=== PATIENT | male | born 1935 | race Caucasian/White ===

== ENCOUNTER 2017-12-23 15:41 | Observation (INO) ==
--- NOTE | 2017-12-23 15:45 | Emergency Department Note ---
Disposition Clinical Impression: Diabetes, Chronic pain, Impaired mobility and ADLs, Acute exacerbation of CHF (congestive heart failure), Cellulitis Disposition: Admitted As Inpatient Condition: Fair Referrals: Galileo James MD [Primary Care Provider] - Forms: ED Satisfaction Letter, Work/School Release Time of Disposition: 17:34 General Adult HPI - General Chief complaint: ED General Medical Stated complaint: lower back pain, possible UTI Time Seen by Provider: 12/23/17 15:41 Source: patient, family Mode of arrival: ambulatory Limitations: no limitations Nursing Notes Reviewed: Yes Vital Signs Reviewed: Yes - History of Present Illness HPI Narrative: -year-old male who presents rest of the family states is been held. The patient tells me that he has been having tearing has been aching he's week he is presently worsened over the past 3 weeks has had increasing swelling and edema in lower extremities and erythema denies any blurred vision double vision loss vision diarrhea melena hematochezia hematemesis family is concerned because he is just seems to be going downhill he states he is here for a tune up systems have been reviewed and are otherwise negative Onset (ago): week(s) (3+) Location: other (Generalized) Pain Severity: mild Pain Scale: 1 Quality: aching Consistency: constant Improves with: nothing Worsens with: nothing Associated symptoms: Reports: confusion, weakness. Denies: chest pain, diaphoresis, fever/chills, headaches, loss of appetite, malaise, nausea/vomiting, rash, seizure, shortness of breath, syncope Treatments Prior to Arrival: none - Related Data Home Medications Medication Instructions Recorded Confirmed Gabapentin [Neurontin] 800 mg PO TID 10/22/14 12/23/17 Insulin NPH Hum/Reg Insulin Hm 15 units SQ BID 10/22/14 12/23/17 [Novolin 70-30 100 Unit/ml Vial] Simvastatin [Zocor] 40 mg PO HS 10/22/14 12/23/17 Primidone [Mysoline] 250 mg PO HS 04/18/17 12/23/17 Albuterol Sulfate [Ventolin Hfa] 2 puff IH DAILY PRN 10/05/17 12/23/17 OxyCODONE/APAP 10/325 [Percocet 1 tab PO QID 10/05/17 12/23/17 10/325 MG] Testosterone Cypionate 1 ml IM Q10D 10/05/17 12/23/17 [Depo-Testosterone] Duloxetine HCl [Cymbalta] 60 mg PO DAILY 11/28/17 12/23/17 Omeprazole [PriLOSEC] 20 mg PO DAILY 11/28/17 12/23/17 Previous Rx's Medication Instructions Recorded Diltiazem CD (24hr) [Cardizem CD] 240 mg PO DAILY #30 cap.er.24h 11/30/17 Furosemide [Lasix] 40 mg PO DAILY #30 tablet 11/30/17 Metoprolol [Lopressor] 50 mg PO BID #60 tablet 11/30/17 Warfarin [Coumadin] 4 mg PO DAILY@1800 #15 tablet 11/30/17 Allergies Allergy/AdvReac Type Severity Reaction Status Date / Time No Known Allergies Allergy Verified 04/18/17 09:08 All systems ED: reviewed and negative except as stated. Review of Systems: As Per HPI Constitutional: Reports: weakness. Denies: fever, chills Eyes: Reports: vision change, other (Tearing). Denies: eye pain, eye discharge ENT ED: Denies: ear pain, throat pain, dental pain Cardiovascular: Reports: dyspnea on exertion, edema. Denies: chest pain, palpitations Respiratory: Denies: cough, dyspnea, wheezes Gastrointestinal: Denies: abdominal pain, nausea, vomiting Genitourinary: Reports: frequency. Denies: urgency, dysuria Musculoskeletal: Denies: back pain, neck pain Integumentary: Denies: rash, abrasion, lesions Neurological: Reports: headache, confusion. Denies: weakness, numbness Psychiatric: Denies: anxiety, depression Endocrine: Denies: fatigue Hematological/Lymphatic: Denies: easy bleeding, easy bruising Allergic/Immunologic: Denies: facial swelling, urticaria Past Medical History - Past Medical History Attestation: Yes The following information was validated with the patient. Source: patient, old records reviewed, obtained from family, nursing notes reviewed Medical history: Reports: arthritis, COPD, diabetes, GERD, hypertension Surgical history: Reports: hip replacement, knee replacement, orthopedic, other Psychiatric history: Reports: depression - Social History Smoking Status: Never smoker Smokeless Tobacco Status: No Alcohol use: Reports: none Drug use: Reports: none Physical Exam - General Limitations: no limitations General appearance: alert, in no apparent distress, obese, other (Occasional confusion) - Head Head exam: atraumatic, normocephalic, normal inspection - Eye Eye exam: Present: normal appearance, PERRL, EOMI, other (Patient having a little bit of tearing but his nasal membranes are markedly swollen this can be a contributing factor) - ENT ENT exam: normal exam, normal oropharynx, mucous membranes moist, TM's normal bilaterally, normal external ear exam - Neck Neck exam: Present: normal inspection, full ROM, trachea midline - Chest Chest inspection: Present: normal inspection, symmetric chest wall rise - Respiratory Respiratory exam: Present: normal lung sounds bilaterally - Cardiovascular Cardiovascular exam: Present: irregular rhythm, normal heart sounds - Abdominal Exam Abdominal exam: Present: soft, Non-Tender, normal bowel sounds. Absent: mass, pulsatile mass - Expanded Upper Extremity Exam Shoulder exam: Present: normal inspection, full ROM Arm exam: Present: normal inspection, full ROM Elbow exam: Present: normal inspection, full ROM Forearm/Wrist exam: Present: normal inspection, full ROM Hand exam: Present: normal inspection, full ROM Vascular exam: Normal: capillary refill, radial pulse - Expanded Lower Extremity Exam Hip/Pelvis exam: Present: normal inspection, full ROM Upper leg exam: Present: normal inspection, full ROM Knee exam: Present: normal inspection, full ROM Lower leg exam: Present: normal inspection, full ROM, swelling, erythema Ankle exam: Present: normal inspection, full ROM, swelling, erythema Foot/toe exam: Present: normal inspection, full ROM, swelling, erythema Neurovascular/Tendon exam: Present: normal capillary refill, normal fine/light t ouch. Absent: motor deficit, sensory deficit, tendon deficit Gait: observed and normal - Back Exam Back exam: Present: normal inspection, full ROM. Absent: muscle spasm - Neurological Exam Neurological exam: Present: alert, oriented X3, CN II-XII intact - Psychiatric Psychiatric exam: Present: normal affect, normal mood - Skin Skin exam: Present: warm, dry, intact, normal color Course Course Narrative: Patient was seen and examined laboratory data and chest x-ray CT of the head were done because the patient was having an atypical headache results having been obtained with having obtained results I reviewed them with her daughters I explained to him that I may not be to get him admitted but with thigh discussion with Dr. Matthews we were concerned about the elevated glucose and the underlying history of atrial flutter her peripheral edema and the cellulitis that would be most beneficial from antibiotics IV patient recently admitted transfer to [facility] Vital Signs Temperature 98.9 F 12/23/17 15:42 Pulse Rate 97 12/23/17 15:42 Respiratory Rate 18 12/23/17 15:42 Blood Pressure 127/88 12/23/17 15:42 O2 Sat by Pulse Oximetry 96 12/23/17 15:42 Temperature 98.9 F 12/23/17 15:42 Pulse Rate 97 12/23/17 15:42 Respiratory Rate 18 12/23/17 15:42 Blood Pressure 127/88 12/23/17 15:42 O2 Sat by Pulse Oximetry 96 12/23/17 15:42 Oxygen Delivery Oxygen Delivery Nasal Cannula Medical Decision Making - Medical Records Medical records reviewed: Yes I reviewed the patient's medical records. - Lab Data Lab results reviewed: Yes I reviewed the patient's lab results. Result diagrams: 12/23/17 16:18 12/23/17 16:18 Lab Results 12/23/17 12/23/17 12/23/17 Range/Units 16:15 16:18 16:18 WBC 10.6 (4.3-11.1) K/mcL RBC 5.24 (4.19-5.50) M/mcL Hgb 16.7 (12.9-16.9) g/dL Hct 50.0 (37.5-50.1) % MCV 95.4 (83.0-100.0) fL MCH 31.9 (28.0-33.3) pg MCHC 33.4 (31.6-35.5) g/dL RDW 13.0 (11.5-14.5) % Plt Count 220 (140-400) K/mcL MPV 11.5 (9.4-12.4) fL Immature Gran % 0.5 (0-4) % Seg Neutrophils % 72.2 % Lymphocytes % 17.7 % Monocytes % 7.5 % Eosinophils % 1.6 % Basophils % 0.5 % Neutrophils # 7.7 (1.6-8.9) K/mcL Lymphocytes # 1.9 (0.6-4.6) K/mcL Monocytes # 0.8 (0.0-1.3) K/mcL Eosinophils # 0.2 (0.0-0.6) K/mcL Basophils # 0.1 (0.0-0.2) K/mcL PT (9.4-12.1) Seconds INR APTT 46.3 H (26.0-36.0) Seconds Sodium (136-145) mEq/L Potassium (3.5-5.1) mEq/L Chloride (98-107) mEq/L Carbon Dioxide (23-29) mEq/L BUN (8-23) mg/dL Creatinine (0.70-1.30) mg/dL Est GFR ( Amer) (> 60) Est GFR (Non-Af Amer) (> 60) BUN/Creatinine Ratio (6-26) Glucose (70-105) mg/dL Calculated Osmolality (280-300) Lactic Acid (0.5-2.2) mmol/L Calcium (8.6-10.3) mg/dL Total Bilirubin (0.3-1.0) mg/dL AST (13-39) Units/L ALT (7-52) Units/L Alkaline Phosphatase (34-104) Units/L Troponin I (< 0.04) ng/mL B-Natriuretic Peptide (Less than 100) pg/mL Serum Total Protein (6.4-8.9) g/dL Albumin (3.5-5.7) g/dL Globulin (2.4-3.5) g/dL Albumin/Globulin Ratio (1.1-2.2) TSH (0.340-5.600) mcIU/mL Urine Color Yellow (Yellow) Urine Clarity Clear (Clear) Urine pH 8.5 H (5.0-8.0) pH Units Ur Specific [place] 1.020 (1.010-1.025) Urine Protein 30 H (Neg-Trace) mg/dL Urine Glucose (UA) 500 H (Normal) mg/dL Urine Ketones Negative (Negative) mg/dL Urine Blood Negative (Negative) Urine Nitrite Negative (Negative) Urine Bilirubin Negative (Negative) Urine Urobilinogen 2.0 H (Normal) mg/dL Ur Leukocyte Esterase Negative (Negative) Urine Bacteria Few (None-Few) per hpf Urine Mucus Few (Few) Ur Culture Indicated? NO (NO) 12/23/17 12/23/17 12/23/17 Range/Units 16:18 16:18 16:18 WBC (4.3-11.1) K/mcL RBC (4.19-5.50) M/mcL Hgb (12.9-16.9) g/dL Hct (37.5-50.1) % MCV (83.0-100.0) fL MCH (28.0-33.3) pg MCHC (31.6-35.5) g/dL RDW (11.5-14.5) % Plt Count (140-400) K/mcL MPV (9.4-12.4) fL Immature Gran % (0-4) % Seg Neutrophils % % Lymphocytes % % Monocytes % % Eosinophils % % Basophils % % Neutrophils # (1.6-8.9) K/mcL Lymphocytes # (0.6-4.6) K/mcL Monocytes # (0.0-1.3) K/mcL Eosinophils # (0.0-0.6) K/mcL Basophils # (0.0-0.2) K/mcL PT 24.9 H (9.4-12.1) Seconds INR 2.2 APTT (26.0-36.0) Seconds Sodium 135 L (136-145) mEq/L Potassium 3.8 (3.5-5.1) mEq/L Chloride 96 L (98-107) mEq/L Carbon Dioxide 30 H (23-29) mEq/L BUN 13 (8-23) mg/dL Creatinine 1.20 (0.70-1.30) mg/dL Est GFR ( Amer) > 60 (> 60) Est GFR (Non-Af Amer) 58 L (> 60) BUN/Creatinine Ratio 11 (6-26) Glucose 217 H (70-105) mg/dL Calculated Osmolality 287 (280-300) Lactic Acid (0.5-2.2) mmol/L Calcium 9.1 (8.6-10.3) mg/dL Total Bilirubin 1.1 H (0.3-1.0) mg/dL AST 24 (13-39) Units/L ALT 24 (7-52) Units/L Alkaline Phosphatase 163 H (34-104) Units/L Troponin I (< 0.04) ng/mL B-Natriuretic Peptide 388 H (Less than 100) pg/mL Serum Total Protein 7.9 (6.4-8.9) g/dL Albumin 4.1 (3.5-5.7) g/dL Globulin 3.8 H (2.4-3.5) g/dL Albumin/Globulin Ratio 1.1 (1.1-2.2) TSH (0.340-5.600) mcIU/mL Urine Color (Yellow) Urine Clarity (Clear) Urine pH (5.0-8.0) pH Units Ur Specific [place] (1.010-1.025) Urine Protein (Neg-Trace) mg/dL Urine Glucose (UA) (Normal) mg/dL Urine Ketones (Negative) mg/dL Urine Blood (Negative) Urine Nitrite (Negative) Urine Bilirubin (Negative) Urine Urobilinogen (Normal) mg/dL Ur Leukocyte Esterase (Negative) Urine Bacteria (None-Few) per hpf Urine Mucus (Few) Ur Culture Indicated? (NO) 12/23/17 12/23/17 Range/Units 16:18 16:18 WBC (4.3-11.1) K/mcL RBC (4.19-5.50) M/mcL Hgb (12.9-16.9) g/dL Hct (37.5-50.1) % MCV (83.0-100.0) fL MCH (28.0-33.3) pg MCHC (31.6-35.5) g/dL RDW (11.5-14.5) % Plt Count (140-400) K/mcL MPV (9.4-12.4) fL Immature Gran % (0-4) % Seg Neutrophils % % Lymphocytes % % Monocytes % % Eosinophils % % Basophils % % Neutrophils # (1.6-8.9) K/mcL Lymphocytes # (0.6-4.6) K/mcL Monocytes # (0.0-1.3) K/mcL Eosinophils # (0.0-0.6) K/mcL Basophils # (0.0-0.2) K/mcL PT (9.4-12.1) Seconds INR APTT (26.0-36.0) Seconds Sodium (136-145) mEq/L Potassium (3.5-5.1) mEq/L Chloride (98-107) mEq/L Carbon Dioxide (23-29) mEq/L BUN (8-23) mg/dL Creatinine (0.70-1.30) mg/dL Est GFR ( Amer) (> 60) Est GFR (Non-Af Amer) (> 60) BUN/Creatinine Ratio (6-26) Glucose (70-105) mg/dL Calculated Osmolality (280-300) Lactic Acid 1.7 (0.5-2.2) mmol/L Calcium (8.6-10.3) mg/dL Total Bilirubin (0.3-1.0) mg/dL AST (13-39) Units/L ALT (7-52) Units/L Alkaline Phosphatase (34-104) Units/L Troponin I < 0.03 (< 0.04) ng/mL B-Natriuretic Peptide (Less than 100) pg/mL Serum Total Protein (6.4-8.9) g/dL Albumin (3.5-5.7) g/dL Globulin (2.4-3.5) g/dL Albumin/Globulin Ratio (1.1-2.2) TSH 2.473 (0.340-5.600) mcIU/mL Urine Color (Yellow) Urine Clarity (Clear) Urine pH (5.0-8.0) pH Units Ur Specific [place] (1.010-1.025) Urine Protein (Neg-Trace) mg/dL Urine Glucose (UA) (Normal) mg/dL Urine Ketones (Negative) mg/dL Urine Blood (Negative) Urine Nitrite (Negative) Urine Bilirubin (Negative) Urine Urobilinogen (Normal) mg/dL Ur Leukocyte Esterase (Negative) Urine Bacteria (None-Few) per hpf Urine Mucus (Few) Ur Culture Indicated? (NO) - Radiology Data Radiology results reviewed: Yes I reviewed the patient's radiology results. ITS Impressions Chest X-Ray 12/23/17 15:45 IMPRESSION: Stable cardiomegaly with pulmonary vascular congestion. D/ / Kelli Finnegan MD / Kelli Finnegan MD Interpreting Provider: Kelli Finnegan MD Head CT 12/23/17 16:14 IMPRESSION: No acute intracranial abnormality. Diffuse atrophic changes with findings suggesting chronic microvascular ischemia D/ / Matt Delgado MD / Matt Delgado MD Interpreting Provider: Matt Delgado MD - EKG Data EKG #1 EKG attestation: Yes I reviewed and interpreted this EKG. EKG results narrative: A. fib rate 87 DE unable to calculate QRS 93 QT 340 and axis -[address] segment elevation Critical Care Time Critical Care Time: No
[2017-12-23] MEDS ORDERED: Bumetanide 1 MG/4 ML VIAL IVP ONE (15:46)
[2017-12-23] MEDS ORDERED: Ampicillin/Sulbactam 3,000 MG in 0.9 % Sodium Chloride Mini Bag 100 ML IVPB ONE ×2 (15:46→17:48)
[2017-12-23] MEDS ORDERED: 0.9 % Sodium Chloride 1,000 ML IVC SCH (16:00)
[2017-12-23 16:18] LABS: Bilirubin,Urine Negative (Negative); Blood,Urine Negative (Negative); Clarity,Urine Clear (Clear); Color,Urine Yellow (Yellow); Glucose,Urine (UA) 500 mg/dL (Normal); Ketones,Urine Negative (Negative); Leukocyte Esterase,Urine Negative (Negative); Nitrite,Urine Negative (Negative); PH,Urine 8.5 pH Units (5.0-8.0); Protein,Urine 30 mg/dL (Neg-Trace)
[2017-12-23 16:26] LABS: Bacteria,Urine Few per hpf (None-Few); Mucus,Urine Few (Few)
[2017-12-23 16:33] LABS: Basophils # 0.1 K/mcL (0.0-0.2); Basophils % 0.5 %; Eosinophils # 0.2 K/mcL (0.0-0.6); Eosinophils % 1.6 %; Hemoglobin 16.7 g/dL (12.9-16.9); Immature Granulocytes % 0.5 % (0-4); Lymphocytes # 1.9 K/mcL (0.6-4.6); Lymphocytes % 17.7 %; Mean Corpuscular HGB Conc 33.4 g/dL (31.6-35.5); Mean Corpuscular Hemoglobin 31.9 pg (28.0-33.3); Mean Corpuscular Volume 95.4 fL (83.0-100.0); Mean Platelet Volume 11.5 fL (9.4-12.4); Monocytes # 0.8 K/mcL (0.0-1.3); Monocytes % 7.5 %; Neutrophils # 7.7 K/mcL (1.6-8.9); Platelet Count 220 K/mcL (140-400); Red Blood Count 5.24 M/mcL (4.19-5.50); Segmented Neutrophils % 72.2 %
[2017-12-23 16:40] LABS: INR 2.2; Prothrombin Time 24.9 Seconds (9.4-12.1)
[2017-12-23 16:47] LABS: Alanine Aminotransferase 24 Units/L (7-52); Albumin 4.1 g/dL (3.5-5.7); Albumin/Globulin Ratio 1.1 (1.1-2.2); Alkaline Phosphatase 163 Units/L (34-104); Aspartate Amino Transferase 24 Units/L (13-39); BUN/Creatinine Ratio 11 (6-26); Bilirubin,Total 1.1 mg/dL (0.3-1.0); Blood Urea Nitrogen 13 mg/dL (8-23); Calcium 9.1 mg/dL (8.6-10.3); Carbon Dioxide 30 mEq/L (23-29); Chloride 96 mEq/L (98-107); Globulin 3.8 g/dL (2.4-3.5); Glucose 217 mg/dL (70-105); Osmolality,Calculated 287 (280-300); Potassium 3.8 mEq/L (3.5-5.1); Sodium 135 mEq/L (136-145); Total Protein 7.9 g/dL (6.4-8.9); eGFR For Non-African Americans 58 (> 60)
[2017-12-23 16:50] LABS: Troponin I < 0.03 ng/mL (< 0.04)
[2017-12-23 17:04] LABS: Thyroid Stimulating Hormone 2.473 mcIU/mL (0.340-5.600)
[2017-12-23] MEDS ORDERED: *HR* HYDROcodone/Acet 5/325 mg TABLET PO ONE (17:10)
[2017-12-23] MEDS ORDERED: D5% in Water 1,000 ML IVC PRN (17:48)
[2017-12-23] MEDS ORDERED: Naloxone 0.4 MG/ML INJ IVP PRN (17:48)
[2017-12-23] MEDS ORDERED: *HR* Dextrose 50 % in Water (Syg) 50 ML SYRINGE IVP PRN (17:48)
[2017-12-23] MEDS ORDERED: Dextrose Gel 15 GM/37.5 ML TUBE PO PRN ×2 (17:48)
[2017-12-23] MEDS ORDERED: TESTOSTERONE CYPIONATE IM SCH (17:48)
[2017-12-23] MEDS: 0.9 % Sodium Chloride 1,000 ML IVC SCH (19:19)
[2017-12-23] MEDS: Gabapentin 400 MG CAPSULE PO SCH (20:17)
[2017-12-23] MEDS: *HR* Warfarin 2 MG TABLET PO SCH (20:17)
[2017-12-23] MEDS: Insulin NPH/REG 70/30 100 UNIT/ML (x5UNIT) SQ SCH (20:19)
[2017-12-23] MEDS ORDERED: *HR* OxyCODONE/APAP 10/325 TABLET PO SCH (21:00)
[2017-12-23] MEDS ORDERED: *HR* FentaNYL PATCH 25 MCG PATCH TD SCH (23:45)
[2017-12-24] MEDS: 0.9 % Sodium Chloride 1,000 ML IVC SCH ×2 (02:17→16:38)
[2017-12-24] MEDS: *HR* OxyCODONE/APAP 10/325 TABLET PO SCH ×5 (04:52→21:25)
[2017-12-24 06:18] LABS: Basophils # 0.1 K/mcL (0.0-0.2); Basophils % 0.5 %; Eosinophils # 0.3 K/mcL (0.0-0.6); Eosinophils % 3.4 %; Hematocrit 46.2 % (37.5-50.1); Hemoglobin 15.2 g/dL (12.9-16.9); Immature Granulocytes % 0.4 % (0-4); Lymphocytes # 2.6 K/mcL (0.6-4.6); Lymphocytes % 26.7 %; Mean Corpuscular HGB Conc 32.9 g/dL (31.6-35.5); Mean Corpuscular Hemoglobin 31.2 pg (28.0-33.3); Mean Corpuscular Volume 94.9 fL (83.0-100.0); Mean Platelet Volume 11.3 fL (9.4-12.4); Monocytes % 10.4 %; Neutrophils # 5.6 K/mcL (1.6-8.9); Platelet Count 186 K/mcL (140-400); Red Blood Count 4.87 M/mcL (4.19-5.50); Segmented Neutrophils % 58.6 %
[2017-12-24 06:43] LABS: BUN/Creatinine Ratio 13 (6-26); Blood Urea Nitrogen 13 mg/dL (8-23); Calcium 8.3 mg/dL (8.6-10.3); Carbon Dioxide 29 mEq/L (23-29); Chloride 101 mEq/L (98-107); Glucose 173 mg/dL (70-105); Osmolality,Calculated 288 (280-300); Potassium 3.6 mEq/L (3.5-5.1); Sodium 137 mEq/L (136-145); eGFR For Non-African Americans > 60 (> 60)
[2017-12-24] MEDS: Diltiazem CD (24hr) 240 MG CAPSULE PO SCH (08:57)
[2017-12-24] MEDS: Insulin NPH/REG 70/30 100 UNIT/ML (x5UNIT) SQ SCH ×2 (08:57→21:26)
[2017-12-24] MEDS: Gabapentin 400 MG CAPSULE PO SCH ×3 (08:57→21:26)
[2017-12-24] MEDS: Insulin LISPRO 300 UNITS/3 ML VIAL SQ SCH ×3 (08:58→16:48)
[2017-12-24] MEDS ORDERED: Furosemide 40 MG TABLET PO SCH (09:00)
--- NOTE | 2017-12-24 12:36 | Internal Med History&Physical ---
Date of Encounter: 12/24/17 Time of Encounter: 11:35 Assessment and Plan (1) Acute exacerbation of CHF (congestive heart failure) Current visit: Yes Status: Acute He will be started on Bumex instead of Lasix. Metoprolol will be continued. 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 (3) Chronic pain Current visit: Yes Status: Chronic Continue Percocet. Increase Cymbalta and decrease Neurontin to see if edema lessens while maintaining pain control. Qualifiers: Chronic pain type: other chronic pain Qualified Code(s): G89.29 - Other chronic pain (4) Major depression Current visit: No Status: Acute Continue Cymbalta at increase dose as per above. Qualifiers: Major depression recurrence: unspecified whether recurrent Active/Remission status: currently active Major depression episode severity: unspecified Qualified Code(s): F32.9 - Major depressive disorder, single episode, unspecified (5) Diabetes Current visit: Yes Status: Chronic Hemoglobin A1c was 6.3% on 06/02/2016. Recheck in a.m. Continue Accu-Cheks with SSI. 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 His PCP can order a sleep study. Room air oximetry will be checked on a 6 minute walk prior to discharge. Internal Medicine - H&P: HPI Chief complaint: Weakness, lethargy, weight gain Admitted From: Emergency Dept Plans for Post Hospital Care: Home History of present illness: Mr. Storm is a 81 year old male who came to emergency room complaining of weakness for approximately 2 weeks with worsening over the past week. He describes it as generalized rather than focal weakness. He has had chronic pain in his back and legs that he thinks has worsened slightly in the past week. He has taken an occasional extra Percocet to help control the pain and states he ran out Percocet on December 22. The pain became more severe so he came to emergency room. He was felt to have cellulitis of his lower legs and possible exacerbation of heart failure. He was admitted to [facility] floor for ongoing care needs. Past Med Surg Social Fam HX - Past Medical History Medical history: arthritis, COPD, diabetes, GERD, hypertension Additional medical history: Tremors. Psychiatric history: depression - Past Surgical History Surgical History: hip replacement, knee replacement, orthopedic, other Additional surgical history: Left hip, right hip and Left knee replacement. - Social History Smoking Status: Never smoker Smokeless Tobacco Status: No Alcohol use: none Drug use: none - Family History Father Living Status: Hx Family Cardiac Disorders: No Hx Family Respiratory Disorders: Yes Mother Living Status: Hx Family Cardiac Disorders: No Internal Medicine - H&P: Meds Gabapentin [Neurontin] 800 mg PO TID 10/22/14 [History] Insulin NPH Hum/Reg Insulin Hm [Novolin 70-30 100 Unit/ml Vial] 15 units SQ BID 10/22/14 [History] Simvastatin [Zocor] 40 mg PO HS 10/22/14 [History] Primidone [Mysoline] 250 mg PO HS 04/18/17 [History] Albuterol Sulfate [Ventolin Hfa] 2 puff IH DAILY PRN 10/05/17 [History] OxyCODONE/APAP 10/325 [Percocet 10/325 MG] 1 tab PO QID 10/05/17 [History] Testosterone Cypionate [Depo-Testosterone] 1 ml IM Q10D 10/05/17 [History] Duloxetine HCl [Cymbalta] 60 mg PO DAILY 11/28/17 [History] Omeprazole [PriLOSEC] 20 mg PO DAILY 11/28/17 [History] Diltiazem CD (24hr) [Cardizem CD] 240 mg PO DAILY #30 cap.er.24h 11/30/17 [Rx] Furosemide [Lasix] 40 mg PO DAILY #30 tablet 11/30/17 [Rx] Metoprolol [Lopressor] 50 mg PO BID #60 tablet 11/30/17 [Rx] Warfarin [Coumadin] 4 mg PO DAILY@1800 #15 tablet 11/30/17 [Rx] Allergy/AdvReac Type Severity Reaction Status Date / Time No Known Allergies Allergy Verified 04/18/17 09:08 All Systems PM: A 10-system review of systems was performed and is negative for pertinent findings except as documented above in the HPI. Review of systems: Gen.: His weight has increased from 108.862 kg on 10/05/2017 to 121.109 kg on admission. Cardiovascular: He has history of hypertension. He had echocardiogram done 12/11/2017 during [facility] stay which showed LVEF of 45-50% with small pericardial effusion but no evidence of cardiac tamponade. There was trace tricuspid regurgitation. Interventricular septum and posterior wall thickness me asurements were 1.42 and 1.02 cm respectively. There was LAE at 4.30 cm. He had atrial fibrillation and was started on Cardizem, metoprolol, and Coumadin. He has not had documented EST or heart catheter. He has not had DVT or pulmonary embolus. Respiratory: He is a lifelong nonsmoker and has no known chronic lung disease and does not use home oxygen. He had pulmonary function testing on 07/13/2017 which showed FVC 61% predicted, FEV1 65% predicted, FEV1/FVC 76%, MVV 41% predicted, RV 92% predicted, and DLCO (corrected) 75% predicted. 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 GI: He has occasional GERD symptoms. He had pancreatitis approximately 10 years ago from presumed alcohol use. He has had no recurrence. He denies disorders of his liver. : He has BPH. He had JUNAID in the past which has resolved. He denies other kidney bladder or prostate disorders. Neurologic: He has diabetic peripheral neuropathy. He has benign essential tremor and is being considered for deep brain stimulation surgery in [place]. He denies large distribution strokes or seizures. Endocrine: He was diagnosed with DM 2 approximately 2007. He has hyperlipidemia and hypogonadism. He denies known thyroid disease. Hematology/oncology: He denies blood disorders cancers or anemia Psychiatric: He has anxiety and depression but denies other mental health issues. 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 - Constitutional Vitals: Temp Pulse Resp BP Pulse Ox 97.7 F 100 20 126/77 96 12/24/17 10:20 12/24/17 10:20 12/24/17 10:20 12/24/17 10:20 12/24/17 10:20 Exam: Gen.: He is a well-developed overweight male lying in bed who appears in no acute distress at present time HEENT: Head is atraumatic and normocephalic. Eyes: EOMI. There is no scleral icterus. Mouth: Mucosa is moist. Neck: Supple and nontender. There is no thyromegaly or adenopathy noted. Heart: Irregularly irregular without murmurs or gallops Lungs: He has diminished breath sounds diffusely. No wheezes or crackles are heard. Abdomen: Soft and nontender. No masses or guarding are noted. Extremities: He has trace pitting edema bilaterally of the lower anterior shins and dorsum of the feet. He has woody edema present. There is diffuse erythema on his lower legs and torso arms and face but no evidence of localized cellulitis. He has minimal DJD changes of his hands. Neurologic: Mental status: He is talkative and a good historian. Cranial nerves: Smile is symmetric. Forehead wrinkles bilaterally. Tongue protrudes midline. EOMI. Motor: There is no pronator drift. Cerebellar: Finger to nose is intact bilaterally. Skin: Warm and dry Internal Med - H&P Results - Labs CBC & Chem 7: 12/24/17 06:12 12/24/17 06:12 Labs: Short CBC 12/23/17 12/24/17 Range/Units 16:18 06:12 WBC 10.6 9.6 (4.3-11.1) K/mcL Hgb 16.7 15.2 D (12.9-16.9) g/dL Hct 50.0 46.2 (37.5-50.1) % Plt Count 220 186 (140-400) K/mcL Neutrophils # 7.7 5.6 (1.6-8.9) K/mcL BMP 12/23/17 12/24/17 16:18 06:12 Sodium 135 L 137 Potassium 3.8 3.6 Chloride 96 L 101 Carbon Dioxide 30 H 29 BUN 13 13 Creatinine 1.20 1.01 Glucose 217 H 173 H Calcium 9.1 8.3 L Cardiac Enzymes 12/23/17 Range/Units 16:18 Troponin I < 0.03 (< 0.04) ng/mL Liver Function 12/23/17 Range/Units 16:18 Total Bilirubin 1.1 H (0.3-1.0) mg/dL AST 24 (13-39) Units/L ALT 24 (7-52) Units/L Alkaline Phosphatase 163 H (34-104) Units/L Albumin 4.1 (3.5-5.7) g/dL Urine 12/23/17 Range/Units 16:15 Urine Color Yellow (Yellow) Urine Clarity Clear (Clear) Urine pH 8.5 H (5.0-8.0) pH Units Ur Specific [place] 1.020 (1.010-1.025) Urine Protein 30 H (Neg-Trace) mg/dL Urine Glucose (UA) 500 H (Normal) mg/dL - Impressions ITS Impressions Chest X-Ray 12/23/17 15:45 IMPRESSION: Stable cardiomegaly with pulmonary vascular congestion. D/ / Kelli Finnegan MD / Kelli Finnegan MD Interpreting Provider: Kelli Finnegan MD Head CT 12/23/17 16:14 IMPRESSION: No acute intracranial abnormality. Diffuse atrophic changes with findings suggesting chronic microvascular ischemia D/ / Matt Delgado MD / Matt Delgado MD Interpreting Provider: Matt Delgado MD
[2017-12-24] MEDS: Bumetanide 1 MG TABLET PO SCH (13:22)
[2017-12-24] MEDS: *HR* Warfarin 2 MG TABLET PO SCH (17:15)
[2017-12-25] MEDS: *HR* OxyCODONE/APAP 10/325 TABLET PO SCH ×3 (03:10→09:43)
[2017-12-25 07:04] VITALS: BP 133/88
[2017-12-25 07:49] LABS: Basophils # 0.1 K/mcL (0.0-0.2); Basophils % 0.7 %; Eosinophils # 0.6 K/mcL (0.0-0.6); Hematocrit 48.5 % (37.5-50.1); Hemoglobin 15.7 g/dL (12.9-16.9); Immature Granulocytes % 0.4 % (0-4); Lymphocytes # 2.7 K/mcL (0.6-4.6); Lymphocytes % 27.3 %; Mean Corpuscular HGB Conc 32.4 g/dL (31.6-35.5); Mean Corpuscular Hemoglobin 31.8 pg (28.0-33.3); Mean Corpuscular Volume 98.4 fL (83.0-100.0); Mean Platelet Volume 10.9 fL (9.4-12.4); Monocytes # 1.1 K/mcL (0.0-1.3); Monocytes % 10.9 %; Neutrophils # 5.4 K/mcL (1.6-8.9); Platelet Count 213 K/mcL (140-400); Red Blood Count 4.93 M/mcL (4.19-5.50); Red Cell Distribution Width 13.2 % (11.5-14.5); Segmented Neutrophils % 54.7 %
[2017-12-25 08:54] LABS: Estimated Average Glucose 212 mg/dl
[2017-12-25] MEDS: Diltiazem CD (24hr) 240 MG CAPSULE PO SCH (09:44)
[2017-12-25] MEDS: Gabapentin 400 MG CAPSULE PO SCH (09:44)
[2017-12-25] MEDS: Insulin LISPRO 300 UNITS/3 ML VIAL SQ SCH (09:44)
[2017-12-25] MEDS: Bumetanide 1 MG TABLET PO SCH (09:44)
[2017-12-25] MEDS: Insulin NPH/REG 70/30 100 UNIT/ML (x5UNIT) SQ SCH (09:47)
--- NOTE | 2017-12-25 10:16 | Discharge Summary ---
Orders not resulted at time of discharge: Pending orders 12/23/17 16:25 Culture,Blood [BC] Stat 12/25/17 06:57 Basic Metabolic Panel AM 0400 Magnesium AM 0400 Date of Encounter: 12/25/17 Time of Encounter: 10:10 - Discharge Diagnosis (1) Acute exacerbation of CHF (congestive heart failure) Priority: Primary Status: Acute Qualifiers: Heart failure type: combined systolic and diastolic Qualified Code(s): I50.43 - Acute on chronic combined systolic (congestive) and diastolic (congestive) heart failure (2) Atrial fibrillation with RVR Priority: Secondary Status: Acute (3) Chronic pain Priority: Secondary Status: Chronic Qualifiers: Chronic pain type: other chronic pain Qualified Code(s): G89.29 - Other chronic pain (4) Major depression Priority: Secondary Status: Chronic Qualifiers: Major depression recurrence: unspecified whether recurrent Active/Remission status: currently active Major depression episode severity: unspecified Qualified Code(s): F32.9 - Major depressive disorder, single episode, unspecified (5) Diabetes Priority: Secondary Status: Chronic Qualifiers: Diabetes mellitus type: type 2 Diabetes mellitus mcc insulin use: with intermediate manager use Diabetes mellitus complication status: with unspecified complications Qualified Code(s): E11.8 - Type 2 diabetes mellitus with unspecified complications; Z79.4 - care home (current) use of insulin (6) TAN (obstructive sleep apnea) Priority: Secondary Status: Suspected Hospital course: Mr. Storm is a 81 year old male who came to emergency room complaining of weakness for approximately 2 weeks with worsening over the past week. He describes it as generalized rather than focal weakness. He has had chronic pain in his back and legs that he thinks has worsened slightly in the past week. He has taken an occasional extra Percocet to help control the pain and states he ran out Percocet on December 22. The pain became more severe so he came to emergency room. He was felt to have cellulitis of his lower legs and possible exacerbation of heart failure. He was admitted to [facility] floor for ongoing care needs. Initial orders were written by the emergency room physician. I saw him on December 24 and performed a history and physical. He was given IV Bumex and had significant diuresis. BN peptide improved to 298 by December 25. He with continue oral Bumex and metoprolol at discharge for heart failure. Neurontin was decreased to lessen possibility of medication induced edema. Cymbalta was increased. Hemoglobin A1c returned elevated at 9.0%. He will be started on metformin and continue his home dose of insulin. His PCP can monitor. I recommended he have a sleep study to further evaluate for TAN and need of CPAP/BiPAP. His PCP can coordinate this. He had physical therapy and occupational therapy evaluations. On December 25 he felt improved and stable for discharge home. He will follow with his PCP Dr. Galileo James within 1 week. - Time Spent with Patient Total time spent providing and/or coordinating discharge services: - Discharge Medications Prescriptions: Bumetanide [Bumex] 1 mg PO DAILY #30 tablet DULoxetine [Cymbalta] 30 mg PO DAILY #30 capsule. metFORMIN [Glucophage] 500 mg PO 0800 #30 tablet Home Medications: Insulin NPH Hum/Reg Insulin Hm [Novolin 70-30 100 Unit/ml Vial] 15 units SQ BID 10/22/14 [History] Simvastatin [Zocor] 40 mg PO HS 10/22/14 [History] Primidone [Mysoline] 250 mg PO HS 04/18/17 [History] Albuterol Sulfate [Ventolin Hfa] 2 puff IH DAILY PRN 10/05/17 [History] OxyCODONE/APAP 10/325 [Percocet 10/325 MG] 1 tab PO QID 10/05/17 [History] Testosterone Cypionate [Depo-Testosterone] 1 ml IM Q10D 10/05/17 [History] Duloxetine HCl [Cymbalta] 60 mg PO DAILY 11/28/17 [History] Omeprazole [PriLOSEC] 20 mg PO DAILY 11/28/17 [History] Diltiazem CD (24hr) [Cardizem CD] 240 mg PO DAILY #30 cap.er.24h 11/30/17 [Rx] Metoprolol [Lopressor] 50 mg PO BID #60 tablet 11/30/17 [Rx] Warfarin [Coumadin] 4 mg PO DAILY@1800 #15 tablet 11/30/17 [Rx] Bumetanide [Bumex] 1 mg PO DAILY #30 tablet 12/25/17 [Rx] DULoxetine [Cymbalta] 30 mg PO DAILY #30 capsule. 12/25/17 [Rx] Gabapentin [Neurontin] 400 mg PO TID #0 12/25/17 [Rx] metFORMIN [Glucophage] 500 mg PO 0800 #30 tablet 12/25/17 [Rx] Allergies/Adverse Reactions: Allergy/AdvReac Type Severity Reaction Status Date / Time No Known Allergies Allergy Verified 04/18/17 09:08 Date of admission: 12/23/17 17:46 Primary care physician: Galileo James MD Consults: 12/24/17 12:44 Consult to Occupational Therapy [CONS] Routine Comment: Evaluate, develop and implement POC Reason for Consult: Weakness Does patient have active BEDREST order?: No Is patient medically & hemodynamically stable?: Yes Patient assessed for mobility or mobilized this visit?: Yes Consult to Physical Therapy [CONS] Routine Comment: Evaluate, develop and implement POC Reason for Consult: Weakness Does patient have active BEDREST order?: No Is patient medically & hemodynamically stable?: Yes Patient assessed for mobility or mobilized this visit?: Yes - Constitutional Vitals: Temp Pulse Resp BP Pulse Ox 97.7 F 104 18 133/88 98 12/25/17 07:00 12/25/17 07:00 12/25/17 07:00 12/25/17 07:00 12/25/17 07:00 - Patient Status Disposition: Home, Self-Care Condition: Fair - Discharge Instructions Follow Up With: Galileo James MD [Primary Care Provider] - 1 week - Diet and Activity Activity: resume usual activities as tolerated Diet: diabetic diet
[2017-12-25 10:54] LABS: Calcium 8.9 mg/dL (8.6-10.3); Magnesium 2.1 mg/dL (1.6-2.6); Potassium 4.2 mEq/L (3.5-5.1)
--- NOTE | 2017-12-25 11:26 | Physician Discharge Referral ---
Home Health/Hosp Referral Info Transfer to: Home Health Attending Provider: Byron Provider in Charge Post Discharge: PCP (Galileo James M.D.) - Diagnosis (1) Acute exacerbation of CHF (congestive heart failure) Priority: Primary Status: Acute (2) Atrial fibrillation with RVR Priority: Secondary Status: Acute (3) Chronic pain Priority: Secondary Status: Chronic (4) Major depression Priority: Secondary Status: Chronic (5) Diabetes Priority: Secondary Status: Chronic (6) TAN (obstructive sleep apnea) Priority: Secondary Status: Suspected - Respiratory Orders Oxygen / L per min (Liters per minute by nasal cannula as needed to keep sat greater than 90 are sent) Smoking Cessation: Smoking cessation has been advised. For more information, call the [place] Tobacco Quit Line at 2-033-WLKT-NOW. - Diet/Nutrition Diet/Nutrition Orders: No Concentrated Sweets - Activity Activity Orders: Walker - Services Needed Following services are medically necessary services: Nursing, Home Health Aide, Physical Therapy, Occupational Therapy - Transfer Medications Prescriptions: Bumetanide [Bumex] 1 mg PO DAILY #30 tablet DULoxetine [Cymbalta] 30 mg PO DAILY #30 capsule. metFORMIN [Glucophage] 500 mg PO 0800 #30 tablet Home Medications: Insulin NPH Hum/Reg Insulin Hm [Novolin 70-30 100 Unit/ml Vial] 15 units SQ BID 10/22/14 [History] Simvastatin [Zocor] 40 mg PO HS 10/22/14 [History] Primidone [Mysoline] 250 mg PO HS 04/18/17 [History] Albuterol Sulfate [Ventolin Hfa] 2 puff IH DAILY PRN 10/05/17 [History] OxyCODONE/APAP 10/325 [Percocet 10/325 MG] 1 tab PO QID 10/05/17 [History] Testosterone Cypionate [Depo-Testosterone] 1 ml IM Q10D 10/05/17 [History] Duloxetine HCl [Cymbalta] 60 mg PO DAILY 11/28/17 [History] Omeprazole [PriLOSEC] 20 mg PO DAILY 11/28/17 [History] Diltiazem CD (24hr) [Cardizem CD] 240 mg PO DAILY #30 cap.er.24h 11/30/17 [Rx] Metoprolol [Lopressor] 50 mg PO BID #60 tablet 11/30/17 [Rx] Warfarin [Coumadin] 4 mg PO DAILY@1800 #15 tablet 11/30/17 [Rx] Bumetanide [Bumex] 1 mg PO DAILY #30 tablet 12/25/17 [Rx] DULoxetine [Cymbalta] 30 mg PO DAILY #30 capsule.dr 12/25/17 [Rx] Gabapentin [Neurontin] 400 mg PO TID #0 12/25/17 [Rx] metFORMIN [Glucophage] 500 mg PO 0800 #30 tablet 12/25/17 [Rx] Allergies/Adverse Reactions: Allergy/AdvReac Type Severity Reaction Status Date / Time No Known Allergies Allergy Verified 04/18/17 09:08 Certification: Further, I certify that my clinical findings support that this patient is homebound (i.e. absences from home require considerable and taxing effort and are for medical reasons or voodoo services or infrequently or short duration when for other reasons) because: Homebound Reason: Leaving home requires considerable and taxing effort due to condition (Impaired ambulation ability secondary to heart failure and obesity) Attestation: My signature below is to certify that this patient is under my care and that I, or nurse practitioner, or a physician's marketing administrative assistant working with me, has a [id number] encounter with this patient.
== END 2017-12-25 12:42 | disposition home or self-care (01) ==
LOC: INPPIK 15:41 → EMEROOPIK 15:41 → INPPIK 18:19
PROVIDERS: ADMIT Internal Medicine; ATTEND Internal Medicine

== ENCOUNTER 2018-07-25 12:10 | Inpatient (IN) ==
--- NOTE | 2018-07-25 12:24 | Emergency Department Note ---
Disposition Clinical Impression: Intractable pain, Recurrent falls Closed right acetabular fracture Qualifiers: Encounter type: initial encounter Sublocation of acetabulum: anterior wall Fracture alignment: nondisplaced Qualified Code(s): S32.414A - Nondisplaced fracture of anterior wall of right acetabulum, initial encounter for closed fracture Disposition: Admitted As Inpatient Condition: Fair Referrals: NONE,PCP [Non-Partnered Physician] - Forms: ED Satisfaction Letter Time of Disposition: 14:05 Fall HPI - General Chief Complaint: ED Fall Stated Complaint: fall, pain to rt arm Time Seen by Provider: 07/25/18 12:24 Source: patient, family, EMS Mode of arrival: EMS Limitations: no limitations Nursing Notes Reviewed: Yes Vital Signs Reviewed: Yes - History of Present Illness HPI Narrative: Patient presents with a chief complaint of "cannot walk". He has had multiple episodes of falls with 5 falls in the week preceding this most recent Sunday. He was seen in this emergency department and did have imaging across his right arm, his head and his right hip. He presents with severe pain in the right groin right hand and right shoulder. He is able to get up with a walker to get to the Coumadin clinic 2 days ago but has not been able to get up to get around since. His states that he cannot even stand at this point for her to change his attends. His pain is not being controlled with home medications. Corey was called for his transport. He has not had any fall or repeat injury since Sunday. He does not have any recent change of medicines. He denies fevers or chills. Denies nausea or vomiting. Denies chest pain shortness of breath or cough. Denies any midline neck or back pain. Denies any diarrhea or bowel troubles. His family believes his tremor is a little bit worse. They called the family doctor and were advised to come here for reevaluation. Pt Subjective Complaint: fall Onset (ago): day(s) (5) Fall From: standing, other (In the garage) Fall Witnessed: no Place Fall Occurred: home Loss of Consciousness: none Prolonged Down Time?: unclear Symptoms Prior to Fall: none Location of injury - extremities: Right: shoulder, arm, forearm, hand, hip Severity: moderate, severe Quality: sharp, dull, aching Associated symptoms (after fall): Reports: unable to walk, confusion. Denies: headache, neck pain, numbness, weakness, chest pain, shortness of breath, abdomi nal pain, hematuria, lightheaded, vertigo - Related Data Home Medications Medication Instructions Recorded Confirmed Insulin NPH Hum/Reg Insulin Hm 38 units SQ DAILY 10/22/14 07/25/18 [Novolin 70-30 100 Unit/ml Vial] Simvastatin [Zocor] 40 mg PO HS 10/22/14 07/25/18 Primidone [Mysoline] 250 mg PO HS 04/18/17 07/25/18 Albuterol Sulfate [Ventolin Hfa] 2 puff IH DAILY PRN 10/05/17 07/25/18 OxyCODONE/APAP 10325 [Percocet 1 tab PO QID 10/05/17 07/25/18 10/325 MG] Testosterone Cypionate 1 ml IM Q10D 10/05/17 07/25/18 [Depo-Testosterone] Duloxetine HCl [Cymbalta] 60 mg PO DAILY 11/28/17 07/25/18 Omeprazole [PriLOSEC] 20 mg PO DAILY 11/28/17 07/25/18 Previous Rx's Medication Instructions Recorded Diltiazem CD (24hr) [Cardizem CD] 240 mg PO DAILY #30 cap.er.24h 11/30/17 Metoprolol [Lopressor] 50 mg PO BID #60 tablet 11/30/17 Warfarin [Coumadin] 4 mg PO DAILY@1800 #15 tablet 11/30/17 Bumetanide [Bumex] 1 mg PO DAILY #30 tablet 12/25/17 DULoxetine [Cymbalta] 30 mg PO DAILY #30 capsule.dr 12/25/17 Gabapentin [Neurontin] 400 mg PO TID #0 12/25/17 Tramadol HCl [Ultram] 50 mg PO BID PRN 5 Days #10 tab 07/21/18 Allergies Allergy/AdvReac Type Severity Reaction Status Date / Time No Known Allergies Allergy Verified 07/25/18 12:12 All systems ED: reviewed and negative except as stated. Fall PMH - Past Medical History Medical history: Reports: arthritis, atrial fibrillation, CHF, DVT, diabetes, hyperlipidemia, hypertension, other (Obesity) Surgical history: Reports: hip replacement (Bilateral), knee replacement, orthopedic, other Psychiatric history: Reports: depression - Social History Smoking Status: Never smoker Alcohol use: Reports: none Drug use: Reports: none Physical Exam - General Limitations: no limitations General appearance: alert - Head Head exam: atraumatic, normocephalic, normal inspection - Eye Eye exam: Present: normal appearance, PERRL, EOMI - ENT ENT exam: normal exam, normal oropharynx, mucous membranes moist - Neck Neck exam: Present: normal inspection, full ROM, trachea midline. Absent: tenderness, lymphadenopathy - Chest Chest inspection: Present: normal inspection, symmetric chest wall rise - Respiratory Respiratory exam: Present: normal lung sounds bilaterally. Absent: respiratory distress, wheezes, prolonged expiratory phase - Cardiovascular Cardiovascular exam: Present: tachycardia, irregular rhythm - Abdominal Exam Abdominal exam: Present: soft, Non-Tender, normal bowel sounds, other (Pain on pressure over the right hemipelvis and hip.). Absent: tenderness, distention, guarding, rebound, rigidity - Extremities Exam Extremities exam: Present: other (Severity bruising and swelling of the right arm from the proximal humerus to the hand.) - Expanded Lower Extremity Exam Neurovascular/Tendon exam: Present: normal capillary refill Gait: not tested/not observed - Neurological Exam Neurological exam: Present: alert, oriented X3 - Psychiatric Psychiatric exam: Present: normal affect, normal mood - Skin Skin exam: Present: warm, dry, intact, normal color. Absent: diaphoresis, pallor Course Course Narrative: With return of testing, the patient does not have apparent reason metabolically or structurally for recurrent falls and his severe pain. He is currently unable to get up around her function at home. A call has been placed to Dr. Matthews to discuss inpatient care with likely a social service evaluation. Dr. Matthews is agreeable with continuing pain management and obtaining physical therapy assessment. He will likely a personal placement for rehabilitation. Verbal orders have been obtained for observation. Vital Signs Temperature 97.9 F 07/25/18 12:12 Pulse Rate 108 07/25/18 12:12 Respiratory Rate 18 07/25/18 12:12 Blood Pressure 117/80 07/25/18 12:12 O2 Sat by Pulse Oximetry 93 07/25/18 12:12 Temperature 97.9 F 07/25/18 12:12 Pulse Rate 105 07/25/18 13:59 Respiratory Rate 16 07/25/18 13:59 Blood Pressure 115/75 07/25/18 13:59 O2 Sat by Pulse Oximetry 99 07/25/18 13:59 Oxygen Delivery Oxygen Delivery Nasal Cannula Fall - Medical Records Medical records reviewed: Yes I reviewed the patient's medical records. XR/XR forearm RT IMPRESSION: Large hematoma involving the right elbow and proximal forearm. No evidence of an acute fracture or dislocation. Old healed right radius fracture. There are degenerative changes in the right elbow and wrist. D/ / Esdras Ruiz MD / Esdras Ruiz MD - Lab Data Lab results reviewed: Yes I reviewed the patient's lab results. Result diagrams: 07/25/18 12:48 07/25/18 12:48 Lab Results 07/25/18 07/25/18 07/25/18 Range/Units 12:48 12:48 12:48 WBC 7.8 (4.3-11.1) K/mcL RBC 3.68 L (4.19-5.50) M/mcL Hgb 12.3 L (12.9-16.9) g/dL Hct 36.9 L (37.5-50.1) % MCV 100.3 H (83.0-100.0) fL MCH 33.4 H (28.0-33.3) pg MCHC 33.3 (31.6-35.5) g/dL RDW 14.7 H (11.5-14.5) % Plt Count 195 (140-400) K/mcL MPV 10.5 (9.4-12.4) fL Immature Gran % 0.6 (0-4) % Seg Neutrophils % 61.6 % Lymphocytes % 18.4 % Monocytes % 10.1 % Eosinophils % 8.9 % Basophils % 0.4 % Neutrophils # 4.8 (1.6-8.9) K/mcL Lymphocytes # 1.4 (0.6-4.6) K/mcL Monocytes # 0.8 (0.0-1.3) K/mcL Eosinophils # 0.7 H (0.0-0.6) K/mcL Basophils # 0.0 (0.0-0.2) K/mcL PT 20.4 H (9.4-12.1) Seconds INR 1.8 Sodium 133 L (136-145) mEq/L Potassium 4.1 (3.5-5.1) mEq/L Chloride 99 (98-107) mEq/L Carbon Dioxide 31 H (23-29) mEq/L BUN 16 (8-23) mg/dL Creatinine 1.30 (0.70-1.30) mg/dL Est GFR ( Amer) > 60 (> 60) Est GFR (Non-Af Amer) 53 L (> 60) BUN/Creatinine Ratio 12 (6-26) Glucose 231 H (70-105) mg/dL Calculated Osmolality 285 (280-300) Calcium 8.4 L (8.6-10.3) mg/dL Urine Color (Yellow) Urine Clarity (Clear) Urine pH (5.0-8.0) pH Units Ur Specific [place] (1.010-1.025) Urine Protein (Neg-Trace) mg/dL Urine Glucose (UA) (Normal) mg/dL Urine Ketones (Negative) mg/dL Urine Blood (Negative) Urine Nitrite (Negative) Urine Bilirubin (Negative) Urine Urobilinogen (Normal) mg/dL Ur Leukocyte Esterase (Negative) Ur Culture Indicated? (NO) 07/25/18 Range/Units 13:50 WBC (4.3-11.1) K/mcL RBC (4.19-5.50) M/mcL Hgb (12.9-16.9) g/dL Hct (37.5-50.1) % MCV (83.0-100.0) fL MCH (28.0-33.3) pg MCHC (31.6-35.5) g/dL RDW (11.5-14.5) % Plt Count (140-400) K/mcL MPV (9.4-12.4) fL Immature Gran % (0-4) % Seg Neutrophils % % Lymphocytes % % Monocytes % % Eosinophils % % Basophils % % Neutrophils # (1.6-8.9) K/mcL Lymphocytes # (0.6-4.6) K/mcL Monocytes # (0.0-1.3) K/mcL Eosinophils # (0.0-0.6) K/mcL Basophils # (0.0-0.2) K/mcL PT (9.4-12.1) Seconds INR Sodium (136-145) mEq/L Potassium (3.5-5.1) mEq/L Chloride (98-107) mEq/L Carbon Dioxide (23-29) mEq/L BUN (8-23) mg/dL Creatinine (0.70-1.30) mg/dL Est GFR ( Amer) (> 60) Est GFR (Non-Af Amer) (> 60) BUN/Creatinine Ratio (6-26) Glucose (70-105) mg/dL Calculated Osmolality (280-300) Calcium (8.6-10.3) mg/dL Urine Color Yellow (Yellow) Urine Clarity Clear (Clear) Urine pH 6.5 (5.0-8.0) pH Units Ur Specific [place] 1.010 (1.010-1.025) Urine Protein Trace (Neg-Trace) mg/dL Urine Glucose (UA) >=1000 H (Normal) mg/dL Urine Ketones Negative (Negative) mg/dL Urine Blood Negative (Negative) Urine Nitrite Negative (Negative) Urine Bilirubin Negative (Negative) Urine Urobilinogen 2.0 H (Normal) mg/dL Ur Leukocyte Esterase Negative (Negative) Ur Culture Indicated? NO (NO) - Radiology Data Radiology results reviewed: Yes I reviewed the patient's radiology results. Two-view x-rays performed of the right humerus. This does not show evidence for acute fracture, dislocation or other acute abnormality. This is on my interpretation. Three-view x-rays obtained of the right hand. This does not demonstrate evidence for fracture, foreign body, subcutaneous air, dislocation or acute joint space abnormality. Patient has significant chronic degenerative changes, especially at the base of the thumb at the carpometacarpal junction. Moderate soft tissue swelling is seen. This is on my interpretation. CT chest is performed. This does not show evidence for osseous injury across the shoulder girdle or ribs. Patient's lungs are free of infiltrate, effusion, mass or heart failure. No acute abnormality is seen. This is on my interpretation. CT is performed of the abdomen and pelvis without IV or oral contrast. This demonstrates normal intra-abdominal contents without evidence for traumatic injury or obstruction. Spine, pelvis and hips are without acute abnormality. Patient is status post bilateral hip replacements was significant scatter artifact on the imaging. Within this limitation I do not see evidence for pelvic or pubic rami fractures. This is on my interpretation. Impressions Abdomen/Pelvis CT 07/25/18 12:32 IMPRESSION: There is a focal linear lucency measuring approximately 1 cm from the anterior margin of the acetabulum on axial image 144/145, extending to the acetabular component. There is concern for a focal cortical step-off seen at this location on these 2 images, which could be related to a nondisplaced anterior acetabular fracture. This extends to the anterior acetabular component. However given the degree of streak artifact in this location, this may be artifactual in nature. No other acute osseous abnormality identified in the right hip or groin. Cardiomegaly. Moderate stool volume. D/ / Josh Edward MD / Josh Edward MD Interpreting Provider: Josh Edward MD Chest CT 07/25/18 12:32 IMPRESSION: No traumatic injury to the chest. Likely pulmonary hypertension. D/ / Jose Alfredo Oviedo / Jose Alfredo Oviedo Interpreting Provider: Jose Alfredo Oviedo Hand X-Ray 07/25/18 12:32 IMPRESSION: 1. Diffuse soft tissue swelling. No acute osseous abnormality of the right hand. 2. Severe 1st carpometacarpal joint degenerative change. D/ / Yuan Alves MD / Yuan Alves MD Interpreting Provider: Yuan Alves MD Humerus X-Ray 07/25/18 12:32 IMPRESSION: Unremarkable radiographs right humerus. Follow-up imaging recommended if pain persists or worsens following conservative management. D/ / Luis Alfredo Parada / Luis Alfredo Parada Interpreting Provider: Luis Alfredo Parada
[2018-07-25] MEDS ORDERED: Ondansetron ODT 4 MG TAB.RAPDIS SL ONE (12:34)
[2018-07-25] MEDS ORDERED: *HR* OxyCODONE/APAP 5/325 TABLET PO ONE (12:34)
[2018-07-25] MEDS ORDERED: 0.9 % Sodium Chloride 500 ML IVC ONE (12:41)
[2018-07-25 13:01] LABS: Basophils % 0.4 %; Eosinophils # 0.7 K/mcL (0.0-0.6); Eosinophils % 8.9 %; Hematocrit 36.9 % (37.5-50.1); Hemoglobin 12.3 g/dL (12.9-16.9); Immature Granulocytes % 0.6 % (0-4); Lymphocytes # 1.4 K/mcL (0.6-4.6); Lymphocytes % 18.4 %; Mean Corpuscular HGB Conc 33.3 g/dL (31.6-35.5); Mean Corpuscular Hemoglobin 33.4 pg (28.0-33.3); Mean Corpuscular Volume 100.3 fL (83.0-100.0); Mean Platelet Volume 10.5 fL (9.4-12.4); Monocytes # 0.8 K/mcL (0.0-1.3); Monocytes % 10.1 %; Neutrophils # 4.8 K/mcL (1.6-8.9); Platelet Count 195 K/mcL (140-400); Red Blood Count 3.68 M/mcL (4.19-5.50); Red Cell Distribution Width 14.7 % (11.5-14.5); Segmented Neutrophils % 61.6 %; White Blood Count 7.8 K/mcL (4.3-11.1)
[2018-07-25 13:05] LABS: INR 1.8; Prothrombin Time 20.4 Seconds (9.4-12.1)
[2018-07-25 13:16] LABS: BUN/Creatinine Ratio 12 (6-26); Blood Urea Nitrogen 16 mg/dL (8-23); Calcium 8.4 mg/dL (8.6-10.3); Carbon Dioxide 31 mEq/L (23-29); Chloride 99 mEq/L (98-107); Glucose 231 mg/dL (70-105); Osmolality,Calculated 285 (280-300); Potassium 4.1 mEq/L (3.5-5.1); Sodium 133 mEq/L (136-145); eGFR For African Americans > 60 (> 60); eGFR For Non-African Americans 53 (> 60)
[2018-07-25] MEDS ORDERED: *HR* HYDROmorphone (PF) 1 MG/ML SYRINGE IVP ONE (13:59)
[2018-07-25 14:07] LABS: Bilirubin,Urine Negative (Negative); Blood,Urine Negative (Negative); Clarity,Urine Clear (Clear); Color,Urine Yellow (Yellow); Glucose,Urine (UA) >=1000 mg/dL (Normal); Ketones,Urine Negative (Negative); Leukocyte Esterase,Urine Negative (Negative); Nitrite,Urine Negative (Negative); PH,Urine 6.5 pH Units (5.0-8.0); Protein,Urine Trace mg/dL (Neg-Trace)
--- NOTE | 2018-07-25 19:54 | Internal Med History&Physical ---
Date of Encounter: 07/25/18 Time of Encounter: 19:10 Assessment and Plan (1) Closed right acetabular fracture Current visit: Yes Status: Acute He will be seen by the orthopedist to determine weightbearing status. Qualifiers: Encounter type: initial encounter Sublocation of acetabulum: anterior wall Fracture alignment: nondisplaced Qualified Code(s): S32.414A - Nondisplaced fracture of anterior wall of right acetabulum, initial encounter for closed fracture (2) Hematoma of arm Current visit: No Status: Acute CT of the arm will be done to further evaluate. Qualifiers: Encounter type: initial encounter Laterality: right Qualified Code(s): S40.021A - Contusion of right upper arm, initial encounter (3) Anemia Current visit: Yes Status: Acute Anemia testing will be done in a.m. Qualifiers: Anemia type: unspecified type Qualified Code(s): D64.9 - Anemia, u nspecified (4) Macrocytosis Current visit: Yes Status: Acute Workup will be done in a.m. (5) CKD (chronic kidney disease) stage 3, GFR 30-59 ml/min Current visit: Yes Status: Chronic Monitor renal indices. (6) CHF (congestive heart failure) Current visit: Yes Status: Chronic Continue Bumex and metoprolol. Qualifiers: Heart failure type: systolic Heart failure chronicity: chronic Qualified Code(s): I50.22 - Chronic systolic (congestive) heart failure (7) Diabetes Current visit: No Status: Chronic Hemoglobin A1c was 9.0% on 12/25/2017. Recheck in a.m. Continue Novolin 70/30 insulin with Accu-Cheks and SSI. 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 (9) Multiple falls Current visit: Yes Status: Acute He will have PT and OT evaluation after orthopedic evaluation. Internal Medicine - H&P: HPI Chief complaint: Weakness, back pain Admitted From: Emergency Dept Plans for Post Hospital Care: Home History of present illness: Mr. Storm is a 82 year old male who returned to emergency room today after a July 21 visit following a fall at home. He reports the fall occurred when he tripped and fell at home. ER evaluation July 21 showed no evidence of fracture. He was discharged home but had progressive pain and weakness. He could not ambulate today because of the worsening severe pain and weakness. He was evaluated again in ER. Abdominal/pelvic CT showed suspected nondisplaced anterior acetabular fracture. He was admitted to [facility] for ongoing care needs. He has fallen several times in the past few days. Neurologic history is pertinent for diagnosis of diabetic peripheral neuropathy. He has benign essential tremor and reports being scheduled for deep brain stimulation surgery 08/06/2018. He denies large distribution strokes or seizures. Muscle skeletal history is significant for DJD and chronic low back pain. He has had left total knee replacement and bilateral total hip replacements in the past. He denies gout or other bone joint or muscle disorders. Past Med Surg Social Fam HX - Past Medical History Medical history: arthritis, atrial fibrillation, CHF, DVT, diabetes, hyperlipidemia, hypertension, other Additional medical history: essential tremmors Psychiatric history: depression - Past Surgical History Surgical History: hip replacement, knee replacement, orthopedic, other Additional surgical history: Left hip, right hip and Left knee replacement. - Social History Smoking Status: Never smoker Smokeless Tobacco Status: No Alcohol use: none Drug use: none - Family History Father Living Status: Hx Family Cardiac Disorders: No Hx Family Respiratory Disorders: Yes Mother Living Status: Hx Family Cardiac Disorders: No Internal Medicine - H&P: Meds Insulin NPH Hum/Reg Insulin Hm [Novolin 70-30 100 Unit/ml Vial] 38 units SQ DAILY 10/22/14 [History] Simvastatin [Zocor] 40 mg PO HS 10/22/14 [History] Primidone [Mysoline] 250 mg PO HS 04/18/17 [History] Albuterol Sulfate [Ventolin Hfa] 2 puff IH DAILY PRN 10/05/17 [History] OxyCODONE/APAP 10/325 [Percocet 10/325 MG] 1 tab PO QID 10/05/17 [History] Testosterone Cypionate [Depo-Testosterone] 1 ml IM Q10D 10/05/17 [History] Duloxetine HCl [Cymbalta] 60 mg PO DAILY 11/28/17 [History] Omeprazole [PriLOSEC] 20 mg PO DAILY 11/28/17 [History] Diltiazem CD (24hr) [Cardizem CD] 240 mg PO DAILY #30 cap.er.24h 11/30/17 [Rx] Metoprolol [Lopressor] 50 mg PO BID #60 tablet 11/30/17 [Rx] Warfarin [Coumadin] 4 mg PO DAILY@1800 #15 tablet 11/30/17 [Rx] Bumetanide [Bumex] 1 mg PO DAILY #30 tablet 12/25/17 [Rx] DULoxetine [Cymbalta] 30 mg PO DAILY #30 capsule.dr 12/25/17 [Rx] Gabapentin [Neurontin] 400 mg PO TID #0 12/25/17 [Rx] Tramadol HCl [Ultram] 50 mg PO BID PRN 5 Days #10 tab 07/21/18 [Rx] Allergy/AdvReac Type Severity Reaction Status Date / Time No Known Allergies Allergy Verified 07/25/18 12:12 All Systems PM: A 10-system review of systems was performed and is negative for pertinent findings except as documented above in the HPI. Review of systems: Review of systems from his November 2017 [facility] hospitalization were reviewed and revised as below. Gen.: His weight increased from 108.862 kg on 10/05/2017 to 121.109 kg on admission November 2017. He states he thinks he has gained approximately 10 pounds since October visit. Cardiovascular: He has history of hypertension. He had echocardiogram done 12/11/2017 during [facility] stay which showed LVEF of 45-50% with small pericardial effusion but no evidence of cardiac tamponade. There was trace tricuspid regurgitation. Interventricular septum and posterior wall thickness measurements were 1.42 and 1.02 cm respectively. There was LAE at 4.30 cm. He had atrial fibrillation and was started on Cardizem, metoprolol, and Coumadin. Limited echocardiogram 06/05/2018 showed LVEF 45-50% with small pericardial effusion. He has not had documented EST or heart catheter. He has not had DVT or pulmonary embolus. Respiratory: He is a lifelong nonsmoker and has no known chronic lung disease and does not use home oxygen. He had pulmonary function testing on 07/13/2017 which showed FVC 61% predicted, FEV1 65% predicted, FEV1/FVC 76%, MVV 41% predicted, RV 92% predicted, and DLCO (corrected) 75% predicted. 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 GI: He has occasional GERD symptoms. He had pancreatitis approximately 10 years ago from presumed alcohol use. He has had no recurrence. He denies disorders of his liver. : He has BPH. 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 He denies other kidney bladder or prostate disorders. Neurologic: As per history of present illness Endocrine: He was diagnosed with DM 2 approximately 2007. He has hyperlipidemia and hypogonadism. He denies known thyroid disease. Hematology/oncology: He denies blood disorders cancers or anemia Psychiatric: He has anxiety and depression but denies other mental health issues. [place] skeletal: As per history of present illness - Constitutional Vitals: Temp Pulse Resp BP Pulse Ox 98.2 F 121 18 102/66 93 07/25/18 19:00 07/25/18 19:00 07/25/18 16:12 07/25/18 19:00 07/25/18 19:00 Exam: Gen.: He is a well-developed obese male lying in bed who appears in mild to moderate pain HEENT: Head is atraumatic and normal cephalic. Eyes: EOMI. There is no scleral icterus. Mouth: Mucosa is moist. Neck: Supple and nontender. There is no thyromegaly or adenopathy noted. Heart: Irregularly irregular with rate approximately 132/m. Lungs: No wheezes or crackles are heard. Abdomen: He has a large abdomen. There is no tenderness to palpation. Extremities: The right arm is significantly edematous with ecchymotic changes extending entire length of the arm. There are multiple areas weeping serosanguinous fluid. The left arm is unremarkable. Dorsalis pedis and posterior tibial pulses are trace to 1+ palpable bilaterally. Neurologic: Mental status: He is talkative and a good historian. Cranial nerves: Smile is symmetric. Forehead wrinkles bilaterally. Tongue protrudes midline. EOMI. Motor: There is no pronator drift. Cerebellar: Finger to nose is intact with the left arm. The right arm cannot flex enough to allow adequate testing. Skin: Warm and dry with right arm swelling and discoloration as per above. Internal Med - H&P Results - Labs CBC & Chem 7: 07/25/18 12:48 07/25/18 12:48 Labs: Short CBC 07/25/18 Range/Units 12:48 WBC 7.8 (4.3-11.1) K/mcL Hgb 12.3 L (12.9-16.9) g/dL Hct 36.9 L (37.5-50.1) % Plt Count 195 (140-400) K/mcL Neutrophils # 4.8 (1.6-8.9) K/mcL BMP 07/25/18 12:48 Sodium 133 L Potassium 4.1 Chloride 99 Carbon Dioxide 31 H BUN 16 Creatinine 1.30 Glucose 231 H Calcium 8.4 L Urine 07/25/18 Range/Units 13:50 Urine Color Yellow (Yellow) Urine Clarity Clear (Clear) Urine pH 6.5 (5.0-8.0) pH Units Ur Specific [place] 1.010 (1.010-1.025) Urine Protein Trace (Neg-Trace) mg/dL Urine Glucose (UA) >=1000 H (Normal) mg/dL - Impressions ITS Impressions Abdomen/Pelvis CT 07/25/18 12:32 IMPRESSION: There is a focal linear lucency measuring approximately 1 cm from the anterior margin of the acetabulum on axial image 144/145, extending to the acetabular component. There is concern for a focal cortical step-off seen at this location on these 2 images, which could be related to a nondisplaced anterior acetabular fracture. This extends to the anterior acetabular component. However given the degree of streak artifact in this location, this may be artifactual in nature. No other acute osseous abnormality identified in the right hip or groin. Cardiomegaly. Moderate stool volume. D/ / Josh Edward MD / Josh Edward MD Interpreting Provider: Josh Edward MD Chest CT 07/25/18 12:32 IMPRESSION: No traumatic injury to the chest. Likely pulmonary hypertension. D/ / Jose Alfredo Oviedo / Jose Alfredo Oviedo Interpreting Provider: Jose Alfredo Oviedo Hand X-Ray 07/25/18 12:32 IMPRESSION: 1. Diffuse soft tissue swelling. No acute osseous abnormality of the right hand. 2. Severe 1st carpometacarpal joint degenerative change. D/ / Yuan Alves MD / Yuan Alves MD Interpreting Provider: Yuan Alves MD Humerus X-Ray 07/25/18 12:32 IMPRESSION: Unremarkable radiographs right humerus. Follow-up imaging recommended if pain persists or worsens following conservative management. D/ / Luis Alfredo Parada / Luis Alfredo Parada Interpreting Provider: Luis Alfredo Parada
[2018-07-25] MEDS: *HR* OxyCODONE/APAP 10/325 TABLET PO PRN (20:41)
[2018-07-25] MEDS: Gabapentin 400 MG CAPSULE PO SCH (20:42)
[2018-07-25] MEDS: 0.45 % Sodium Chloride w/KCl 20 MEQ/1,000 ML MLS IVC SCH (20:42)
[2018-07-26] MEDS: *HR* OxyCODONE/APAP 10/325 TABLET PO PRN ×5 (02:29→21:55)
[2018-07-26] MEDS: 0.45 % Sodium Chloride w/KCl 20 MEQ/1,000 ML MLS IVC SCH ×2 (06:46→19:27)
[2018-07-26] MEDS: Gabapentin 400 MG CAPSULE PO SCH ×3 (08:43→19:26)
[2018-07-26] MEDS: Diltiazem CD (24hr) 240 MG CAPSULE PO SCH (08:43)
[2018-07-26 08:47] LABS: Basophils # 0.1 K/mcL (0.0-0.2); Basophils % 0.6 %; Eosinophils # 0.8 K/mcL (0.0-0.6); Eosinophils % 8.1 %; Hematocrit 39.8 % (37.5-50.1); Hemoglobin 13.2 g/dL (12.9-16.9); Immature Granulocytes % 0.7 % (0-4); Lymphocytes # 1.9 K/mcL (0.6-4.6); Lymphocytes % 20.2 %; Mean Corpuscular HGB Conc 33.2 g/dL (31.6-35.5); Mean Corpuscular Hemoglobin 33.8 pg (28.0-33.3); Mean Corpuscular Volume 101.8 fL (83.0-100.0); Mean Platelet Volume 10.4 fL (9.4-12.4); Monocytes # 1.1 K/mcL (0.0-1.3); Monocytes % 11.8 %; Neutrophils # 5.6 K/mcL (1.6-8.9); Platelet Count 210 K/mcL (140-400); Red Blood Count 3.91 M/mcL (4.19-5.50); Red Cell Distribution Width 15.1 % (11.5-14.5); Segmented Neutrophils % 58.6 %; White Blood Count 9.5 K/mcL (4.3-11.1)
[2018-07-26] MEDS: Bumetanide 1 MG TABLET PO SCH (08:47)
[2018-07-26 08:49] LABS: INR 1.6; Prothrombin Time 18.1 Seconds (9.4-12.1)
[2018-07-26 09:26] LABS: Thyroid Stimulating Hormone 2.8 mcIU/mL (0.340-5.600)
[2018-07-26] MEDS: Insulin NPH/REG 70/30 100 UNIT/ML (x5UNIT) SQ SCH (09:57)
[2018-07-26 12:33] LABS: Folate 15.4 ng/mL (3.0-16.0)
--- NOTE | 2018-07-26 19:24 | Internal Med Progress Note ---
Date of Encounter: 07/26/18 Time of Encounter: 19:15 - Assessment and plan (1) Closed right acetabular fracture Current Visit: Yes Status: Acute Assessment and plan: July 26. No fracture seen on follow-up CT scan. PT and OT evaluation/ interventions will be started. I suspect he will need several days of intense therapy before able to return home. Qualifiers: Encounter type: initial encounter Sublocation of acetabulum: anterior wall Fracture alignment: nondisplaced Qualified Code(s): S32.414A - Nondisplaced fracture of anterior wall of right acetabulum, initial encounter for closed fracture (2) Hematoma of arm Current Visit: No Status: Acute Assessment and plan: July 26. Right forearm shows 3.1 x 9.5 x 11.7 hematoma with pronounced soft tissue edema on CT. PT and OT evaluations will be done. Scheduled and prn analgesics will be given. Qualifiers: Encounter type: initial encounter Laterality: right Qualified Code(s): S40.021A - Contusion of right upper arm, initial encounter (3) Anemia Current Visit: Yes Status: Acute Assessment and plan: July 26. Anemia testing showed iron 40, transferrin saturation 11%, transferrin tender 59, ferritin 62, B12 613, and folate 15.4. Start ferrous sulfate with ascorbic acid in a.m. Qualifiers: Anemia type: unspecified type Qualified Code(s): D64.9 - Anemia, unspecified (4) Macrocytosis Current Visit: Yes Status: Acute Assessment and plan: July 26. B12, folate, and TSH were WNL. (5) CKD (chronic kidney disease) stage 3, GFR 30-59 ml/min Current Visit: Yes Status: Chronic Assessment and plan: July 26. Creatinine has decreased to 1.30 with estimated GFR 53. Continue to monitor. (6) CHF (congestive heart failure) Current Visit: Yes Status: Chronic Assessment and plan: July 26. Continue Bumex and metoprolol. Qualifiers: Heart failure type: systolic Heart failure chronicity: chronic Qualified Code(s): I50.22 - Chronic systolic (congestive) heart failure (7) Diabetes Current Visit: No Status: Chronic Assessment and plan: July 26. Check hemoglobin A1c in a.m. Continued Novolin 70/30 and Accu-Cheks with SSI. Qualifiers: Diabetes mellitus type: type 2 Diabetes mellitus press secretary insulin use: with press secretary use Diabetes mellitus complication status: with unspecified complications Qualified Code(s): E11.8 - Type 2 diabetes mellitus with unspecified complications; Z79.4 - jail (current) use of insulin (8) Atrial fibrillation with RVR Current Visit: No Status: Acute Assessment and plan: July 26. Continue metoprolol, Coumadin, and Cardizem. (9) Multiple falls Current Visit: Yes Status: Acute Assessment and plan: July 26. PT and OT evaluations will be ordered. - Subjective Interval history: July 26. He has no new complaints. He is still having significant pain and drainage from his right arm. He has back/hip pain on movement trying to get out of bed. - Constitutional Vitals: Temp Pulse Resp BP Pulse Ox 98.6 F 109 18 124/79 93 07/26/18 18:10 07/26/18 18:10 07/26/18 18:10 07/26/18 18:10 07/26/18 18:10 Exam: He is resting in bed. His right arm is elevated on a pillow. There are dried serosanguineous secretions on the gauze wrapping the right forearm. His affect is overall cheerful. I reviewed his medications, labs, and x-ray/CT reports. Internal Medicine: Result - Labs CBC & Chem 7: 07/26/18 08:28 07/25/18 12:48 Labs: Short CBC 07/26/18 Range/Units 08:28 WBC 9.5 (4.3-11.1) K/mcL Hgb 13.2 (12.9-16.9) g/dL Hct 39.8 (37.5-50.1) % Plt Count 210 (140-400) K/mcL Neutrophils # 5.6 (1.6-8.9) K/mcL - ABG Interpretation ABG results: PT/INR, D-dimer PT 18.1 Seconds (9.4-12.1) H 07/26/18 08:28 - Impressions Impressions Upper Extremity CT 07/25/18 19:39 IMPRESSION: 1. Large subcutaneous hematoma along the dorsal and ulnar elbow and proximal forearm measuring 3.1 x 9 5 x 11.7 cm. Pronounced soft tissue edema. 2. No acute fracture identified. 3. 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 D/ / Peter Bahena MD / Peter Bahena MD Interpreting Provider: Peter Bahena MD Hip CT 07/26/18 10:03 IMPRESSION: Status post bilateral total hip arthroplasty without complication identified. No fracture seen. If there is persistent clinical concern for occult fracture consider MRI for further evaluation. D/ / Conrad James MD / Conrad James MD Interpreting Provider: Conrad James MD Hip X-Ray 07/26/18 10:04 IMPRESSION: Satisfactory appearance status post hip arthroplasty. No acute abnormality identified D/ / Matt Delgado MD / Matt Delgado MD Interpreting Provider: Matt Delgado MD X-Ray 07/26/18 10:10 IMPRESSION: Status post bilateral total hip arthroplasty, partially imaged on this examination. The surgical hardware appears in appropriate position. Mild inferior endplate deformities of L1 and L2 vertebral bodies, not further evaluated without a lateral radiograph. Bowel gas pattern is nonspecific and nonobstructive. D/ / 07/26/2018 15:07:48 Tan Finnegan MD / [email or web address] Interpreting Provider: Tan Finnegan MD Consult Discharge Plan - Plan Referrals: Galileo James MD [Primary Care Provider] - 1 week
[2018-07-26] MEDS: *HR* Warfarin 2 MG TABLET PO SCH (21:57)
[2018-07-26] MEDS ORDERED: Acetaminophen 325 MG TABLET PO PRN (23:31)
[2018-07-27] MEDS ORDERED: Acetaminophen 325 MG TABLET PO SCH
[2018-07-27] MEDS: *HR* OxyCODONE/APAP 10/325 TABLET PO PRN ×5 (02:24→21:57)
[2018-07-27 05:02] LABS: Basophils % 0.4 %; Eosinophils # 0.7 K/mcL (0.0-0.6); Eosinophils % 6.8 %; Hematocrit 38.9 % (37.5-50.1); Hemoglobin 13.1 g/dL (12.9-16.9); Immature Granulocytes % 0.7 % (0-4); Lymphocytes # 1.9 K/mcL (0.6-4.6); Lymphocytes % 19.7 %; Mean Corpuscular HGB Conc 33.7 g/dL (31.6-35.5); Mean Corpuscular Hemoglobin 34.4 pg (28.0-33.3); Mean Corpuscular Volume 102.1 fL (83.0-100.0); Mean Platelet Volume 10.6 fL (9.4-12.4); Monocytes % 10.4 %; Neutrophils # 5.9 K/mcL (1.6-8.9); Platelet Count 201 K/mcL (140-400); Red Blood Count 3.81 M/mcL (4.19-5.50); Red Cell Distribution Width 15.1 % (11.5-14.5); White Blood Count 9.5 K/mcL (4.3-11.1)
[2018-07-27] MEDS ORDERED: *HR* FentaNYL PATCH 12 MCG PATCH TD SCH (05:15)
[2018-07-27 05:20] LABS: BUN/Creatinine Ratio 12 (6-26); Blood Urea Nitrogen 16 mg/dL (8-23); Calcium 8.2 mg/dL (8.6-10.3); Carbon Dioxide 27 mEq/L (23-29); Chloride 101 mEq/L (98-107); Glucose 172 mg/dL (70-105); Osmolality,Calculated 283 (280-300); Potassium 4.4 mEq/L (3.5-5.1); Sodium 134 mEq/L (136-145); eGFR For African Americans > 60 (> 60); eGFR For Non-African Americans 54 (> 60)
[2018-07-27] MEDS: Ascorbic Acid 500 MG TABLET PO SCH (05:35)
[2018-07-27] MEDS: Gabapentin 400 MG CAPSULE PO SCH ×3 (08:07→21:56)
[2018-07-27] MEDS: Bumetanide 1 MG TABLET PO SCH (08:07)
[2018-07-27] MEDS: Diltiazem CD (24hr) 240 MG CAPSULE PO SCH (08:07)
[2018-07-27 09:41] LABS: Estimated Average Glucose 206 mg/dl
[2018-07-27] MEDS: Insulin NPH/REG 70/30 100 UNIT/ML (x5UNIT) SQ SCH (09:50)
--- NOTE | 2018-07-27 16:18 | Internal Med Progress Note ---
Date of Encounter: 07/27/18 Time of Encounter: 15:45 - Assessment and plan (1) Closed right acetabular fracture Current Visit: Yes Status: Acute Assessment and plan: July 26. No fracture seen on follow-up CT scan. PT and OT evaluation/ interventions will be started. I suspect he will need several days of intense therapy before able to return home. Qualifiers: Encounter type: initial encounter Sublocation of acetabulum: anterior wall Fracture alignment: nondisplaced Qualified Code(s): S32.414A - Nondisplaced fracture of anterior wall of right acetabulum, initial encounter for closed fracture (2) Hematoma of arm Current Visit: No Status: Acute Assessment and plan: July 26. Right forearm shows 3.1 x 9.5 x 11.7 hematoma with pronounced soft tissue edema on CT. PT and OT evaluations will be done. Scheduled and prn analgesics will be given. Qualifiers: Encounter type: initial encounter Laterality: right Qualified Code(s): S40.021A - Contusion of right upper arm, initial encounter (3) Anemia Current Visit: Yes Status: Acute Assessment and plan: July 26. Anemia testing showed iron 40, transferrin saturation 11%, transferrin tender 59, ferritin 62, B12 613, and folate 15.4. Start ferrous sulfate with ascorbic acid in a.m. Qualifiers: Anemia type: unspecified type Qualified Code(s): D64.9 - Anemia, unspecified (4) Macrocytosis Current Visit: Yes Status: Acute Assessment and plan: July 26. B12, folate, and TSH were WNL. (5) CKD (chronic kidney disease) stage 3, GFR 30-59 ml/min Current Visit: Yes Status: Chronic Assessment and plan: July 26. Creatinine has decreased to 1.30 with estimated GFR 53. Continue to monitor. (6) CHF (congestive heart failure) Current Visit: Yes Status: Chronic Assessment and plan: July 26. Continue Bumex and metoprolol. Qualifiers: Heart failure type: systolic Heart failure chronicity: chronic Qualified Code(s): I50.22 - Chronic systolic (congestive) heart failure (7) Diabetes Current Visit: No Status: Chronic Assessment and plan: July 26. Check hemoglobin A1c in a.m. Continued Novolin 70/30 and Accu-Cheks with SSI. July 27. Hemoglobin A1c 8.8%. Accu-Cheks reviewed. Continue present Rx. 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 Continue metoprolol, Coumadin, and Cardizem. (9) Multiple falls Current Visit: Yes Status: Acute Assessment and plan: July 26. PT and OT evaluations will be ordered. July 27. Continue therapy intervention. - Subjective Interval history: July 26. He has no new complaints. He is still having significant pain and drainage from his right arm. He has back/hip pain on movement trying to get out of bed. July 27. He has no new complaints. - Constitutional Vitals: Temp Pulse Resp BP Pulse Ox 98.7 F 101 20 109/76 92 07/27/18 13:56 07/27/18 13:56 07/27/18 13:56 07/27/18 13:56 07/27/18 13:56 Exam: He is resting comfortably in bed and appears in no acute distress. He has light touch sensation intact on fingers of his right hand. He has good capillary refill of the fingertips. He is able to flex/extend his fingers slightly more than on admission. He does not appear to have significant pain at rest. His affect is overall cheerful. I reviewed his medications and lab results. Internal Medicine: Result - Labs CBC & Chem 7: 07/27/18 04:45 07/27/18 04:45 Labs: Short CBC 07/27/18 Range/Units 04:45 WBC 9.5 (4.3-11.1) K/mcL Hgb 13.1 (12.9-16.9) g/dL Hct 38.9 (37.5-50.1) % Plt Count 201 (140-400) K/mcL Neutrophils # 5.9 (1.6-8.9) K/mcL BMP 07/27/18 04:45 Sodium 134 L Potassium 4.4 Chloride 101 Carbon Dioxide 27 BUN 16 Creatinine 1.29 Glucose 172 H Calcium 8.2 L - ABG Interpretation ABG results: PT/INR, D-dimer PT 18.1 Seconds (9.4-12.1) H 07/26/18 08:28 - Impressions Impressions KUB X-Ray 07/26/18 10:10 IMPRESSION: 1. Bowel gas pattern is nonspecific and nonobstructive. 2. Status post bilateral total hip arthroplasty, partially imaged on this examination. The surgical hardware appears in appropriate position. 3. Mild inferior endplate deformities of L1 and L2 vertebral bodies, not further evaluated without lateral radiograph. If there is a concern for acute lumbar spine process, dedicated lumbar spine radiographs may be obtained. D/ / 07/26/2018 15:07:48 Tan Finnegan MD / [email or web address] Interpreting Provider: Tan Finnegan MD Consult Discharge Plan - Plan Referrals: Galileo James MD [Primary Care Provider] - 1 week
[2018-07-27] MEDS: Acetaminophen 325 MG TABLET PO SCH (17:42)
[2018-07-27] MEDS: *HR* Warfarin 2 MG TABLET PO SCH (17:43)
[2018-07-28] MEDS: Acetaminophen 325 MG TABLET PO SCH ×4 (00:59→17:19)
[2018-07-28] MEDS: *HR* OxyCODONE/APAP 10/325 TABLET PO PRN ×5 (01:56→21:30)
[2018-07-28] MEDS ORDERED: *HR* Digoxin 0.5 MG/2 ML AMPUL IVP ONE ×2 (03:43→04:15)
[2018-07-28] MEDS: Ascorbic Acid 500 MG TABLET PO SCH (05:55)
[2018-07-28] MEDS: Bumetanide 1 MG TABLET PO SCH (08:27)
[2018-07-28] MEDS: Insulin NPH/REG 70/30 100 UNIT/ML (x5UNIT) SQ SCH (08:28)
[2018-07-28] MEDS: Diltiazem CD (24hr) 240 MG CAPSULE PO SCH (08:28)
[2018-07-28] MEDS: Gabapentin 400 MG CAPSULE PO SCH ×3 (08:28→21:28)
--- NOTE | 2018-07-28 09:21 | Internal Med Progress Note ---
Date of Encounter: 07/28/18 Time of Encounter: 09:10 - Assessment and plan (1) Contusion, hip Current Visit: Yes Status: Acute Assessment and plan: July 28. Continue PT/OT intervention and analgesics. Qualifiers: Encounter type: subsequent encounter Laterality: right Qualified Code(s): S70.01XD - Contusion of right hip, subsequent encounter (2) Hematoma of arm Current Visit: No Status: Acute Assessment and plan: July 26. Right forearm shows 3.1 x 9.5 x 11.7 hematoma with pronounced soft tissue edema on CT. PT and OT evaluations will be done. Scheduled and prn analgesics will be given. Qualifiers: Encounter type: initial encounter Laterality: right Qualified Code(s): S40.021A - Contusion of right upper arm, initial encounter (3) Anemia Current Visit: Yes Status: Acute Assessment and plan: July 26. Anemia testing showed iron 40, transferrin saturation 11%, transferrin tender 59, ferritin 62, B12 613, and folate 15.4. Start ferrous sulfate with ascorbic acid in a.m. Qualifiers: Anemia type: unspecified type Qualified Code(s): D64.9 - Anemia, unspecified (4) Macrocytosis Current Visit: Yes Status: Acute Assessment and plan: July 26. B12, folate, and TSH were WNL. (5) CKD (chronic kidney disease) stage 3, GFR 30-59 ml/min Current Visit: Yes Status: Chronic Assessment and plan: July 26. Creatinine has decreased to 1.30 with estimated GFR 53. Continue to monitor. (6) CHF (congestive heart failure) Current Visit: Yes Status: Chronic Assessment and plan: July 26. Continue Bumex and metoprolol. Qualifiers: Heart failure type: systolic Heart failure chronicity: chronic Qualified Code(s): I50.22 - Chronic systolic (congestive) heart failure (7) Diabetes Current Visit: No Status: Chronic Assessment and plan: July 26. Check hemoglobin A1c in a.m. Continued Novolin 70/30 and Accu-Cheks with SSI. July 27. Hemoglobin A1c 8.8%. Accu-Cheks reviewed. Continue present Rx. Qualifiers: Diabetes mellitus type: type 2 Diabetes mellitus halfway insulin use: with halfway use Diabetes mellitus complication status: with unspecified complications Qualified Code(s): E11.8 - Type 2 diabetes mellitus with unspecified complications; Z79.4 - detention (current) use of insulin (8) Atrial fibrillation with RVR Current Visit: No Status: Acute Assessment and plan: July 26. Continue metoprolol, Coumadin, and Cardizem. July 28. He is still having occasional episodes of RVR. Blood pressure borderline low frequently. Add Lanoxin and continue present doses of metoprolol Cardizem and Coumadin. (9) Multiple falls Current Visit: Yes Status: Acute Assessment and plan: July 26. PT and OT evaluations will be ordered. July 27. Continue therapy intervention. July 28. Awaiting OT evaluation. He wishes to be discharged home as soon as possible. - Subjective Interval history: July 26. He has no new complaints. He is still having significant pain and drainage from his right arm. He has back/hip pain on movement trying to get out of bed. July 27. He has no new complaints. July 28. He has no new complaints. He states he feels he is improving and he wishes to go home. - Constitutional Vitals: Temp Pulse Resp BP Pulse Ox 98.6 F 102 16 134/77 96 07/28/18 06:17 07/28/18 08:23 07/28/18 03:55 07/28/18 08:23 07/28/18 08:23 Exam: He is resting comfortably in bed and appears in no acute distress. His affect is overall cheerful. Light touch sensation and good capillary refill are present on the right hand. There has been decrease edema of the dorsum of the hand over the last 2-3 days. I reviewed his medications. Internal Medicine: Result - Labs CBC & Chem 7: 07/27/18 04:45 07/27/18 04:45 - ABG Interpretation ABG results: PT/INR, D-dimer PT 18.1 Seconds (9.4-12.1) H 07/26/18 08:28 Consult Discharge Plan - Plan Referrals: Galileo James MD [Primary Care Provider] - 1 week
[2018-07-28] MEDS: ALPRAZolam 0.5 MG TABLET PO PRN ×2 (11:03→21:25)
[2018-07-28] MEDS: *HR* Warfarin 2 MG TABLET PO SCH (17:19)
[2018-07-28] MEDS ORDERED: MOM Conc 10 ML UD.LIQ PO SCH (17:30)
[2018-07-29] MEDS: Acetaminophen 325 MG TABLET PO SCH ×3 (00:08→10:59)
[2018-07-29] MEDS: *HR* OxyCODONE/APAP 10/325 TABLET PO PRN ×2 (05:30→11:00)
[2018-07-29] MEDS: Ascorbic Acid 500 MG TABLET PO SCH (05:30)
[2018-07-29] MEDS ORDERED: *HR* Digoxin 0.25 MG TABLET PO SCH (09:00)
[2018-07-29 10:59] VITALS: BP 128/66
[2018-07-29] MEDS: Insulin NPH/REG 70/30 100 UNIT/ML (x5UNIT) SQ SCH (11:00)
[2018-07-29] MEDS: Diltiazem CD (24hr) 240 MG CAPSULE PO SCH (11:00)
[2018-07-29] MEDS: Gabapentin 400 MG CAPSULE PO SCH (11:00)
[2018-07-29] MEDS: Bumetanide 1 MG TABLET PO SCH (11:00)
--- NOTE | 2018-07-29 11:25 | Discharge Summary ---
Date of Encounter: 07/29/18 Time of Encounter: 11:10 - Discharge Diagnosis (1) Contusion, hip Priority: Primary Status: Acute Qualifiers: Encounter type: subsequent encounter Laterality: right Qualified Code(s): S70.01XD - Contusion of right hip, subsequent encounter (2) Hematoma of arm Priority: Secondary Status: Acute Qualifiers: Encounter type: initial encounter Laterality: right Qualified Code(s): S40.021A - Contusion of right upper arm, initial encounter (3) Anemia Priority: Secondary Status: Resolved Qualifiers: Anemia type: unspecified type Qualified Code(s): D64.9 - Anemia, unspecified (4) Macrocytosis Priority: Secondary Status: Acute (5) CKD (chronic kidney disease) stage 3, GFR 30-59 ml/min Priority: Secondary Status: Chronic (6) CHF (congestive heart failure) Priority: Secondary Status: Chronic Qualifiers: Heart failure type: systolic Heart failure chronicity: chronic Qualified Code(s): I50.22 - Chronic systolic (congestive) heart failure (7) Diabetes Priority: Secondary Status: Chronic Qualifiers: Diabetes mellitus type: type 2 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 Storm is a 82 year old male who returned to emergency room today after a July 21 visit following a fall at home. He reports the fall occurred when he tripped and fell at home. ER evaluation July 21 showed no evidence of fracture. He was discharged home but had progressive pain and weakness. He could not ambulate today because of the worsening severe pain and weakness. He was e valuated again in ER. Abdominal/pelvic CT showed suspected nondisplaced anterior acetabular fracture. He was admitted to [facility] for ongoing care needs. Initial orders were written by the emergency room physician. I saw him on July 25 and performed a history and physical. Contact was made with [place] [facility] about weightbearing status. After reviewing the abdominal/pelvis CT they recommended specific hip CT and additional x-rays be done. No fracture was seen and the patient was allowed to progress weightbearing as tolerated. CT of right arm showed large forearm subcutaneous hematoma measuring 3.1 x 9.5 x 11.7 cm. There was gradual decrease in edema and discomfort in the right arm during his acute care stay. Anemia testing showed iron 40, transferrin saturation 11%, transferrin 259, ferritin 62, B12 613, and folate 15.4. He was started on oral ferrous sulfate with ascorbic acid and these will be continued in swing bed. There was minimal change in creatinine during acute care stay with slight decrease to 1.29 on 07/27/2018. This will be monitored in swing bed. Hemoglobin A1c returned above desirable range at 8.8%. Home dose of Novolin 70/30 was continued and Accu-Cheks showed adequate control. He will continue this regimen in swing bed. Lanoxin was started to assist in control of RVR from atrial fibrillation. He will continue this along with metoprolol and Cardizem and Coumadin. Physical therapy and occupational therapy evaluations were done. It was felt he would benefit from ongoing therapy in swing bed. He was discharged to swing bed July 29 for ongoing care needs. - Time Spent with Patient Total time spent providing and/or coordinating discharge services: - Discharge Medications Prescriptions: New Albuterol Sulfate [Albuterol Inhaler] 2 puff IH Q2HR PRN inhaler PRN Reason: Dyspnea FentaNYL PATCH [Duragesic] 12 mcg TD Q72H 7 Days patch.td72 Ferrous Sulfate 325 mg PO DAILY@0630 tablet Digoxin [Lanoxin] 0.25 mg PO DAILY tablet MOM Conc [MILK OF MAGNESIA conc] 10 ml PO Q48H ud.liq Acetaminophen [Tylenol] 650 mg PO Q6HR tablet Ascorbic Acid [Vitamin C] 500 mg PO DAILY@0630 tablet ALPRAZolam [Xanax 0.5 MG Tablet] 0.25 mg PO Q6H PRN tablet PRN Reason: Anxiety Continued Testosterone Cypionate [Depo-Testosterone] 1 ml IM Q10D OxyCODONE/APAP 10/325 [Percocet 10/325 MG] 1 tab PO QID Albuterol Sulfate [Ventolin Hfa] 2 puff IH DAILY PRN PRN Reason: Wheezing Duloxetine HCl [Cymbalta] 60 mg PO DAILY Omeprazole [PriLOSEC] 20 mg PO DAILY Diltiazem CD (24hr) [Cardizem CD] 240 mg PO DAILY #30 cap.er.24h Metoprolol [Lopressor] 50 mg PO BID #60 tablet Warfarin [Coumadin] 4 mg PO DAILY@1800 #15 tablet Simvastatin [Zocor] 40 mg PO HS Insulin NPH Hum/Reg Insulin Hm [Novolin 70-30 100 Unit/ml Vial] 38 units SQ DAILY Primidone [Mysoline] 250 mg PO HS Bumetanide [Bumex] 1 mg PO DAILY #30 tablet DULoxetine [Cymbalta] 30 mg PO DAILY #30 capsule.dr Hearn Gabapentin [Neurontin] 800 mg PO TID #0 Home Medications: Insulin NPH Hum/Reg Insulin Hm [Novolin 70-30 100 Unit/ml Vial] 38 units SQ DAILY 10/22/14 [History] Simvastatin [Zocor] 40 mg PO HS 10/22/14 [History] Primidone [Mysoline] 250 mg PO HS 04/18/17 [History] Albuterol Sulfate [Ventolin Hfa] 2 puff IH DAILY PRN 10/05/17 [History] OxyCODONE/APAP 10/325 [Percocet 10/325 MG] 1 tab PO QID 10/05/17 [History] Testosterone Cypionate [Depo-Testosterone] 1 ml IM Q10D 10/05/17 [History] Duloxetine HCl [Cymbalta] 60 mg PO DAILY 11/28/17 [History] Omeprazole [PriLOSEC] 20 mg PO DAILY 11/28/17 [History] Diltiazem CD (24hr) [Cardizem CD] 240 mg PO DAILY #30 cap.er.24h 11/30/17 [Rx] Metoprolol [Lopressor] 50 mg PO BID #60 tablet 11/30/17 [Rx] Warfarin [Coumadin] 4 mg PO DAILY@1800 #15 tablet 11/30/17 [Rx] Bumetanide [Bumex] 1 mg PO DAILY #30 tablet 12/25/17 [Rx] DULoxetine [Cymbalta] 30 mg PO DAILY #30 capsule. 12/25/17 [Rx] ALPRAZolam [Xanax 0.5 MG Tablet] 0.25 mg PO Q6H PRN tablet 07/29/18 [Rx] Acetaminophen [Tylenol] 650 mg PO Q6HR tablet 07/29/18 [Rx] Albuterol Sulfate [Albuterol Inhaler] 2 puff IH Q2HR PRN inhaler 07/29/18 [Rx] Ascorbic Acid [Vitamin C] 500 mg PO DAILY@0630 tablet 07/29/18 [Rx] Digoxin [Lanoxin] 0.25 mg PO DAILY tablet 07/29/18 [Rx] FentaNYL PATCH [Duragesic] 12 mcg TD Q72H 7 Days patch.td72 07/29/18 [Rx] Ferrous Sulfate 325 mg PO DAILY@0630 tablet 07/29/18 [Rx] Gabapentin [Neurontin] 800 mg PO TID #0 07/29/18 [Rx] MOM Conc [MILK OF MAGNESIA conc] 10 ml PO Q48H ud.liq 07/29/18 [Rx] Allergies/Adverse Reactions: Allergy/AdvReac Type Severity Reaction Status Date / Time No Known Allergies Allergy Verified 07/25/18 12:12 Date of admission: 07/25/18 19:41 Primary care physician: Galileo James MD Consults: 07/25/18 16:37 Consult to Rehab Director [CONS] Routine Reason for SW Consult: Patient's takes care of patient at home but has recently been having difficulty. May need home health assistance upon discharge. 07/26/18 19:30 Consult to Occupational Therapy [CONS] Routine Comment: Evaluate, develop and implement POC Reason for Consult: Multiple falls, right arm hematoma Does patient have active BEDREST order?: No Is patient medically & hemodynamically stable?: Yes Patient assessed for mobility or mobilized this visit?: Yes Consult to Physical Therapy [CONS] Routine Comment: Evaluate, develop and implement POC Reason for Consult: Multiple falls, right arm hematoma Does patient have active BEDREST order?: No Is patient medically & hemodynamically stable?: Yes Patient assessed for mobility or mobilized this visit?: Yes - Constitutional Vitals: Temp Pulse Resp BP Pulse Ox 98.1 F 106 18 128/66 98 07/29/18 07:16 07/29/18 10:58 07/29/18 07:16 07/29/18 10:58 07/29/18 07:16 - Patient Status Disposition: Transfer Hospital Swing Bed Condition: Fair - Discharge Instructions - Diet and Activity Activity: as per physical therapy Diet: diabetic diet
[2018-07-29] MEDS: ALPRAZolam 0.5 MG TABLET PO PRN (12:38)
== END 2018-07-29 14:30 | disposition other institution (70) | DRG 536 ==
LOC: INPPIK 12:10 → EMEROOPIK 12:10 → INPPIK 16:16
PROVIDERS: ADMIT Internal Medicine; ATTEND Internal Medicine

== ENCOUNTER 2018-11-20 15:46 | Inpatient (IN) ==
[2018-11-20] MEDS: *HR* OxyCODONE/APAP 10/325 TABLET PO PRN (17:43)
[2018-11-20] MEDS ORDERED: *HR* Warfarin 3 MG TABLET PO SCH (18:00)
[2018-11-20] MEDS: Gabapentin 400 MG CAPSULE PO SCH (20:58)
[2018-11-20] MEDS: Sennosides 8.6 MG TABLET PO SCH (20:58)
[2018-11-20] MEDS: Insulin NPH/REG 70/30 100 UNIT/ML (x5UNIT) SQ SCH (20:59)
[2018-11-21] MEDS: *HR* OxyCODONE/APAP 10/325 TABLET PO PRN ×4 (00:31→20:05)
[2018-11-21] MEDS: Sennosides 8.6 MG TABLET PO SCH ×2 (09:12→20:05)
[2018-11-21] MEDS: Gabapentin 400 MG CAPSULE PO SCH ×3 (09:12→20:05)
[2018-11-21] MEDS: Bumetanide 1 MG TABLET PO SCH (09:12)
[2018-11-21] MEDS: Diltiazem CD (24hr) 120 MG CAPSULE PO SCH (09:12)
[2018-11-21] MEDS: Multivit/Ca/Min/Fe/FA 1 TAB TABLET PO SCH (09:12)
[2018-11-21] MEDS: Insulin NPH/REG 70/30 100 UNIT/ML (x5UNIT) SQ SCH ×2 (09:16→20:05)
--- NOTE | 2018-11-21 11:25 | Internal Med History&Physical ---
Date of Encounter: 11/21/18 Time of Encounter: 10:55 Assessment and Plan (1) Impaired mobility and ADLs Current visit: No Status: Acute PT and OT evaluations with ongoing intervention have been ordered. (2) Atrial fibrillation Current visit: Yes Status: Chronic Coumadin was held initially during his [facility] stay because of hemoptysis. Hemoptysis has resolved. Check INR and restart Coumadin to maintain INR 2-3. Continue Cardizem and Lopressor. Qualifiers: Atrial fibrillation type: chronic Qualified Code(s): I48.2 - Chronic atrial fibrillation (3) Diabetes Current visit: No Status: Chronic Hemoglobin A1c was 8.1% on 08/05/2018. Recheck in a.m. 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 PCP can further address as outpatient. (5) Macrocytosis Current visit: No Status: Acute B12, folate, TSH, and LFTs WNL. Continue to monitor. (6) CKD (chronic kidney disease) stage 3, GFR 30-59 ml/min Current visit: No Status: Chronic Monitor renal indices. (7) CHF (congestive heart failure) Current visit: No Status: Chronic Continue Bumex and Lopressor. Check BN peptide in a.m. Qualifiers: Heart failure type: systolic Heart failure chronicity: chronic Qualified Code(s): I50.22 - Chronic systolic (congestive) heart failure (8) Essential tremor Current visit: Yes Status: Chronic Continue primidone. (9) Diabetic neuropathy Current visit: No Status: Chronic Continue gabapentin. Qualifiers: Diabetes mellitus type: type 2 Diabetes mellitus complication detail: diabetic polyneuropathy Qualified Code(s): E11.42 - Type 2 diabetes mellitus with diabetic polyneuropathy (10) Hypertension Current visit: Yes Status: Chronic Continue Bumex, Cardizem, and Lopressor. Qualifiers: Hypertension type: essential hypertension Qualified Code(s): I10 - Essential (primary) hypertension Internal Medicine - H&P: HPI Chief complaint: Acute on chronic kidney failure, weakness, resolving sepsis. Admitted From: Hospital to Hospital Transfer Plans for Post Hospital Care: Home History of present illness: Mr. Storm is a 82 year old male who was hospitalized at [facility] November 14 after presenting with concern for sepsis from OSH. He was started empirically on antibiotics. After procalcitonin returned WNL and blood cultures showed no growth, antibiotics were discontinued November 16. Viral respiratory panel was negative. He had acute delirium/encephalopathy that improved. It was felt he would benefit from swing bed stay prior to returning to independent living at home. Past Med Surg Social Fam HX - Past Medical History Medical history: arthritis, atrial fibrillation, CHF, DVT, diabetes, hyperlipidemia, hypertension, other Additional medical history: parkinson's Psychiatric history: depression - Past Surgical History Surgical History: appendectomy, hip replacement, knee replacement, orthopedic, other Additional surgical history: Left hip, right hip and Left knee replacement. - Social History Smoking Status: Never smoker Smokeless Tobacco Status: No Alcohol use: none Drug use: none - Family History Father Living Status: Hx Family Cardiac Disorders: No Hx Family Respiratory Disorders: Yes Mother Living Status: Hx Family Cardiac Disorders: No Internal Medicine - H&P: Meds Insulin NPH Hum/Reg Insulin Hm [Novolin 70-30 100 Unit/ml Vial] 45 units SQ BID 10/22/14 [History] Simvastatin [Zocor] 40 mg PO HS 10/22/14 [History] Primidone [Mysoline] 250 mg PO HS 04/18/17 [History] Albuterol Sulfate [Ventolin Hfa] 2 puff IH DAILY PRN 10/05/17 [History] OxyCODONE/APAP 10/325 [Percocet 10/325 MG] 1 tab PO QID 10/05/17 [History] Testosterone Cypionate [Depo-Testosterone] 1 ml IM Q10D 10/05/17 [History] Duloxetine HCl [Cymbalta] 60 mg PO DAILY 11/28/17 [History] Omeprazole [PriLOSEC] 20 mg PO DAILY 11/28/17 [History] Diltiazem CD (24hr) [Cardizem CD] 240 mg PO DAILY #30 cap.er.24h 10/05/18 [Rx] Metoprolol [Lopressor] 50 mg PO BID #60 tablet 11/30/17 [Rx] Bumetanide [Bumex] 1 mg PO DAILY #30 tablet 12/25/17 [Rx] Gabapentin [Neurontin] 800 mg PO TID #0 07/29/18 [Rx] Digoxin [Lanoxin] 0.25 mg PO DAILY #30 tablet 08/05/18 [Rx] Warfarin [Coumadin] 6 mg PO DAILY@1800 10/11/18 [History] Tamsulosin HCl [Flomax] 0.4 mg PO DAILY 11/14/18 [History] Allergy/AdvReac Type Severity Reaction Status Date / Time No Known Allergies Allergy Verified 11/14/18 03:53 All Systems PM: A 10-system review of systems was performed and is negative for pertinent findings except as documented above in the HPI. Review of systems: Review of systems from his 2018 [facility] hospitalization were reviewed and revised as below. Gen.: His weight increased from 108.862 kg on 10/05/2017 to 121.109 kg on admission November 2017 and has minimally changed to 123.377 kg on admission now. Cardiovascular: He has history of hypertension. He had TTE 12/11/2017 during [facility] stay which showed LVEF of 45-50% with small pericardial effusion but no evidence of cardiac tamponade. There was trace tricuspid regurgitation. Interventricular septum and posterior wall thickness measurements were 1.42 and 1.02 cm respectively. There was LAE at 4.30 cm. He had atrial fibrillation and was started on Cardizem, metoprolol, and Coumadin. Limited echocardiogram 06/05/2018 showed LVEF 45-50% with small pericardial effusion. [facility] 10/08/2018 showed LVEF of 45-50%. There was mild aortic regurgitation, moderate mitral re gurgitation, and moderate tricuspid regurgitation. Biatrial enlargement was reported without measurements recorded. He has not had documented EST or heart catheter. He has not had DVT or pulmonary embolus. Respiratory: He is a lifelong nonsmoker and has no known chronic lung disease and does not use home oxygen. He had pulmonary function testing on 07/13/2017 which showed FVC 61% predicted, FEV1 65% predicted, FEV1/FVC 76%, MVV 41% predicted, RV 92% predicted, and DLCO (corrected) 75% predicted. 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 He has been diagnosed with TAN but does not use CPAP/BiPAP due to mask not fitting well. GI: He has occasional GERD symptoms. He had pancreatitis approximately 10 years ago from presumed alcohol use. He has had no recurrence. He denies disorders of his liver. : He has BPH. 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 He denies other kidney bladder or prostate disorders. Neurologic: He has diabetic peripheral neuropathy and benign essential tremor. He was considered for deep brain stimulation surgery July 2018 but this has not occurred. He denies large distribution strokes or seizures. Endocrine: He was diagnosed with DM 2 approximately 2007. He has hyperlipidemia and hypogonadism. He denies known thyroid disease. Hematology/oncology: He denies blood disorders cancers or anemia Psychiatric: He has anxiety and depression but denies other mental health issues. Musko skeletal: He has DJD and chronic low back pain. He has had left total knee replacement and bilateral total hip replacements in the past. He denies gout or other bone joint or muscle disorders. - Constitutional Vitals: Temp Pulse Resp BP Pulse Ox 97.8 F 93 22 125/78 96 11/21/18 10:50 11/21/18 10:50 11/21/18 10:50 11/21/18 06:49 11/21/18 10:50 Exam: Gen.: He is a well-developed obese male lying in bed who appears in no acute distress. HEENT: Head is atraumatic and normocephalic. Eyes: EOMI. There is no scleral icterus. Mouth: Mucosa is moist. Neck: Supple and nontender. There is no thyromegaly or adenopathy noted. Heart: Irregularly irregular with rate approximately 104/m. Lungs: No wheezes or crackles are heard. Abdomen: He has a large abdomen. It is soft and nontender. No masses or gua rding are noted. Extremities: He has tenia pedis and onychomycosis. Dorsalis pedis and posterior tibial pulses are trace palpable bilaterally. Neurologic: Mental status: He is talkative and a fairly good historian. He does not remember some details of his history well. Cranial nerves: Smile is symmetric. Forehead crackles bilaterally. Tongue protrudes midline. EOMI. Motor: There is no pronator drift. Cerebellar: Finger to nose is intact bilaterally. Skin: Warm and dry
[2018-11-21] MEDS: traZODone 50 MG TABLET PO PRN (22:30)
[2018-11-22 06:30] LABS: Basophils % 0.5 %; Eosinophils # 0.7 K/mcL (0.0-0.6); Eosinophils % 10.4 %; Hematocrit 42.9 % (37.5-50.1); Hemoglobin 14.2 g/dL (12.9-16.9); Immature Granulocytes % 0.5 % (0-4); Lymphocytes % 32.7 %; Mean Corpuscular HGB Conc 33.1 g/dL (31.6-35.5); Mean Corpuscular Hemoglobin 32.7 pg (28.0-33.3); Mean Corpuscular Volume 98.8 fL (83.0-100.0); Mean Platelet Volume 10.3 fL (9.4-12.4); Monocytes # 0.8 K/mcL (0.0-1.3); Monocytes % 12.8 %; Neutrophils # 2.7 K/mcL (1.6-8.9); Platelet Count 217 K/mcL (140-400); Red Blood Count 4.34 M/mcL (4.19-5.50); Segmented Neutrophils % 43.1 %; White Blood Count 6.2 K/mcL (4.3-11.1)
[2018-11-22 06:36] LABS: INR 1.8
[2018-11-22] MEDS: *HR* OxyCODONE/APAP 10/325 TABLET PO PRN ×3 (06:38→20:49)
[2018-11-22 06:50] LABS: Alanine Aminotransferase 27 Units/L (7-52); Albumin 3.2 g/dL (3.5-5.7); Alkaline Phosphatase 209 Units/L (34-104); Aspartate Amino Transferase 35 Units/L (13-39); BUN/Creatinine Ratio 18 (6-26); Bilirubin,Total 0.7 mg/dL (0.3-1.0); Blood Urea Nitrogen 21 mg/dL (8-23); Calcium 8.2 mg/dL (8.6-10.3); Carbon Dioxide 37 mEq/L (23-29); Chloride 99 mEq/L (98-107); Globulin 3.1 g/dL (2.4-3.5); Glucose 59 mg/dL (70-105); Osmolality,Calculated 293 (280-300); Sodium 141 mEq/L (136-145); Total Protein 6.3 g/dL (6.4-8.9); eGFR For African Americans > 60 (> 60); eGFR For Non-African Americans 59 (> 60)
[2018-11-22 09:04] LABS: Estimated Average Glucose 212 mg/dl
[2018-11-22] MEDS: Gabapentin 400 MG CAPSULE PO SCH ×3 (09:56→20:49)
[2018-11-22] MEDS: Multivit/Ca/Min/Fe/FA 1 TAB TABLET PO SCH (09:56)
[2018-11-22] MEDS: Bumetanide 1 MG TABLET PO SCH (09:56)
[2018-11-22] MEDS: Diltiazem CD (24hr) 120 MG CAPSULE PO SCH (09:56)
[2018-11-22] MEDS: Sennosides 8.6 MG TABLET PO SCH ×2 (09:56→20:49)
[2018-11-22] MEDS: Insulin NPH/REG 70/30 100 UNIT/ML (x5UNIT) SQ SCH ×2 (09:57→20:57)
--- NOTE | 2018-11-22 16:10 | Internal Med Progress Note ---
Date of Encounter: 11/22/18 Time of Encounter: 16:00 - Assessment and plan (1) Impaired mobility and ADLs Current Visit: No Status: Acute Assessment and plan: November 22. Continue PT/OT. (2) Atrial fibrillation Current Visit: Yes Status: Chronic Assessment and plan: November 22. INR was 1.8. Restart Coumadin. Continue Cardizem and Lopressor. Qualifiers: Atrial fibrillation type: chronic Qualified Code(s): I48.2 - Chronic atrial fibrillation (3) Diabetes Current Visit: No Status: Chronic Assessment and plan: November 22. Hemoglobin A1c was 9.0%. Continue 70/30 insulin and Accu-Cheks with SSI. 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 He has declined CPAP/BiPAP due to improperly fitting mass. PCP can further address as outpatient. (5) Macrocytosis Current Visit: No Status: Acute Assessment and plan: November 22. Continue to monitor. (6) CKD (chronic kidney disease) stage 3, GFR 30-59 ml/min Current Visit: No Status: Chronic Assessment and plan: November 22. BUN and creatinine stable at 21 and 1.18 respectively with estimated GFR 59. Continue to monitor. (7) CHF (congestive heart failure) Current Visit: No Status: Chronic Assessment and plan: November 22. BN peptide pending. Continue Bumex and Lopressor. Qualifiers: Heart failure type: systolic Heart failure chronicity: chronic Qualified Code(s): I50.22 - Chronic systolic (congestive) heart failure (8) Essential tremor Current Visit: Yes Status: Chronic Assessment and plan: November 22. Continue primidone. (9) Diabetic neuropathy Current Visit: No Status: Chronic Assessment and plan: November 22. Continue gabapentin. Qualifiers: Diabetes mellitus type: type 2 Diabetes mellitus complication detail: diabetic polyneuropathy Qualified Code(s): E11.42 - Type 2 diabetes mellitus with diabetic polyneuropathy (10) Hypertension Current Visit: Yes Status: Chronic Assessment and plan: November 22. Continue Bumex, Cardizem, and Lopressor. Qualifiers: Hypertension type: essential hypertension Qualified Code(s): I10 - Essential (primary) hypertension - Subjective Interval history: November 22. He has no new complaints and feels well. He states he wishes to go home. - Constitutional Vitals: Temp Pulse Resp BP Pulse Ox 97.6 F 65 16 125/73 96 11/22/18 07:14 11/22/18 07:14 11/22/18 07:14 11/22/18 07:14 11/22/18 07:14 Exam: He is resting comfortably in bed and appears in no acute distress. His affect is bright and cheerful. I reviewed his medications and lab results. Internal Medicine: Result - Labs CBC & Chem 7: 11/22/18 06:16 11/22/18 06:16 Labs: Short CBC 11/22/18 Range/Units 06:16 WBC 6.2 (4.3-11.1) K/mcL Hgb 14.2 (12.9-16.9) g/dL Hct 42.9 (37.5-50.1) % Plt Count 217 (140-400) K/mcL Neutrophils # 2.7 (1.6-8.9) K/mcL BMP 11/22/18 06:16 Sodium 141 Potassium 3.0 L Chloride 99 Carbon Dioxide 37 H BUN 21 Creatinine 1.18 Glucose 59 L Calcium 8.2 L Liver Function 11/22/18 Range/Units 06:16 Total Bilirubin 0.7 (0.3-1.0) mg/dL AST 35 (13-39) Units/L ALT 27 (7-52) Units/L Alkaline Phosphatase 209 H (34-104) Units/L Albumin 3.2 L (3.5-5.7) g/dL - ABG Interpretation ABG results: PT/INR, D-dimer PT 20.0 Seconds (9.4-12.1) H 11/22/18 06:16 Consult Discharge Plan - Plan Referrals: Galileo James MD [Primary Care Provider] - 1 week
[2018-11-22] MEDS: *HR* Warfarin 3 MG TABLET PO SCH (18:29)
[2018-11-22] MEDS: traZODone 50 MG TABLET PO PRN (23:40)
[2018-11-23] MEDS: *HR* OxyCODONE/APAP 10/325 TABLET PO PRN ×4 (05:52→20:23)
[2018-11-23] MEDS: Diltiazem CD (24hr) 120 MG CAPSULE PO SCH (09:26)
[2018-11-23] MEDS: Bumetanide 1 MG TABLET PO SCH (09:26)
[2018-11-23] MEDS: Gabapentin 400 MG CAPSULE PO SCH ×3 (09:26→20:21)
[2018-11-23] MEDS: Multivit/Ca/Min/Fe/FA 1 TAB TABLET PO SCH (09:27)
[2018-11-23] MEDS: Sennosides 8.6 MG TABLET PO SCH ×2 (09:27→20:21)
[2018-11-23] MEDS: Insulin NPH/REG 70/30 100 UNIT/ML (x5UNIT) SQ SCH ×2 (09:28→20:23)
[2018-11-23] MEDS: *HR* Warfarin 3 MG TABLET PO SCH (17:52)
[2018-11-24] MEDS: *HR* OxyCODONE/APAP 10/325 TABLET PO PRN ×5 (00:48→22:53)
[2018-11-24] MEDS: traZODone 50 MG TABLET PO PRN (00:49)
[2018-11-24] MEDS: Bumetanide 1 MG TABLET PO SCH (09:04)
[2018-11-24] MEDS: Insulin NPH/REG 70/30 100 UNIT/ML (x5UNIT) SQ SCH ×2 (09:04→22:53)
[2018-11-24] MEDS: Gabapentin 400 MG CAPSULE PO SCH ×3 (09:05→22:48)
[2018-11-24] MEDS: Multivit/Ca/Min/Fe/FA 1 TAB TABLET PO SCH (09:05)
[2018-11-24] MEDS: Sennosides 8.6 MG TABLET PO SCH ×2 (09:05→22:48)
[2018-11-24] MEDS: Diltiazem CD (24hr) 120 MG CAPSULE PO SCH (09:06)
--- NOTE | 2018-11-24 16:04 | Internal Med Progress Note ---
Date of Encounter: 11/24/18 Time of Encounter: 15:57 - Assessment and plan (1) Impaired mobility and ADLs Current Visit: No Status: Acute Assessment and plan: November 22. Continue PT/OT. (2) Atrial fibrillation Current Visit: Yes Status: Chronic Assessment and plan: November 22. INR was 1.8. Restart Coumadin. Continue Cardizem and Lopressor. November 24. Check INR in a.m. Qualifiers: Atrial fibrillation type: chronic Qualified Code(s): I48.2 - Chronic atrial fibrillation (3) Diabetes Current Visit: No Status: Chronic Assessment and plan: November 22. Hemoglobin A1c was 9.0%. Continue 70/30 insulin and Accu-Cheks with SSI. November 24. He had hypoglycemia yesterday. Insulin dose was reduced. Continue to monitor. 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 He has declined CPAP/BiPAP due to improperly fitting mass. PCP can further address as outpatient. (5) Macrocytosis Current Visit: No Status: Acute Assessment and plan: November 22. Continue to monitor. (6) CKD (chronic kidney disease) stage 3, GFR 30-59 ml/min Current Visit: No Status: Chronic Assessment and plan: November 22. BUN and creatinine stable at 21 and 1.18 respectively with estimated GFR 59. Continue to monitor. November 24. Recheck labs in a.m. (7) CHF (congestive heart failure) Current Visit: No Status: Chronic Assessment and plan: November 22. BN peptide pending. Continue Bumex and Lopressor. November 24. BN peptide decreased to 240 on November 22. Recheck in a.m. Qualifiers: Heart failure type: systolic Heart failure chronicity: chronic Qualified Code(s): I50.22 - Chronic systolic (congestive) heart failure (8) Essential tremor Current Visit: Yes Status: Chronic Assessment and plan: November 22. Continue primidone. (9) Diabetic neuropathy Current Visit: No Status: Chronic Assessment and plan: November 22. Continue gabapentin. Qualifiers: Diabetes mellitus type: type 2 Diabetes mellitus complication detail: diabetic polyneuropathy Qualified Code(s): E11.42 - Type 2 diabetes mellitus with diabetic polyneuropathy (10) Hypertension Current Visit: Yes Status: Chronic Assessment and plan: November 22. Continue Bumex, Cardizem, and Lopressor. Qualifiers: Hypertension type: essential hypertension Qualified Code(s): I10 - Essential (primary) hypertension - Subjective Interval history: November 22. He has no new complaints and feels well. He states he wishes to go home. November 24. He has no new complaints and feels well. He again stated he wishes to go home soon. - Constitutional Vitals: Temp Pulse Resp BP Pulse Ox 97.5 F L 83 17 115/75 96 11/24/18 07:11 11/24/18 07:11 11/24/18 07:11 11/24/18 07:11 11/24/18 07:11 Exam: He is resting comfortably in a chair at bedside and appears in no acute d istress. Heart is irregularly irregular. Lungs are clear. Extremities show trace pitting edema bilaterally. I reviewed his medications and lab results. Internal Medicine: Result - Labs CBC & Chem 7: 11/22/18 06:16 11/22/18 06:16 - ABG Interpretation ABG results: PT/INR, D-dimer PT 20.0 Seconds (9.4-12.1) H 11/22/18 06:16 Consult Discharge Plan - Plan Referrals: Galileo James MD [Primary Care Provider] - 1 week
[2018-11-24] MEDS: *HR* Warfarin 3 MG TABLET PO SCH (17:55)
[2018-11-25 06:25] VITALS: BP 113/74
[2018-11-25] MEDS: *HR* OxyCODONE/APAP 10/325 TABLET PO PRN ×2 (06:44→10:28)
[2018-11-25 06:48] LABS: INR 1.5; Prothrombin Time 17.4 Seconds (9.4-12.1)
[2018-11-25 07:22] LABS: BUN/Creatinine Ratio 16 (6-26); Blood Urea Nitrogen 21 mg/dL (8-23); Calcium 8.7 mg/dL (8.6-10.3); Carbon Dioxide 37 mEq/L (23-29); Chloride 97 mEq/L (98-107); Glucose 134 mg/dL (70-105); Osmolality,Calculated 291 (280-300); Potassium 3.9 mEq/L (3.5-5.1); Sodium 138 mEq/L (136-145); eGFR For African Americans > 60 (> 60); eGFR For Non-African Americans 53 (> 60)
[2018-11-25] MEDS: Bumetanide 1 MG TABLET PO SCH (09:07)
[2018-11-25] MEDS: Gabapentin 400 MG CAPSULE PO SCH (09:08)
[2018-11-25] MEDS: Sennosides 8.6 MG TABLET PO SCH (09:08)
[2018-11-25] MEDS: Multivit/Ca/Min/Fe/FA 1 TAB TABLET PO SCH (09:08)
[2018-11-25] MEDS: Diltiazem CD (24hr) 120 MG CAPSULE PO SCH (09:13)
[2018-11-25] MEDS: Insulin NPH/REG 70/30 100 UNIT/ML (x5UNIT) SQ SCH (09:13)
--- NOTE | 2018-11-25 12:44 | Discharge Summary ---
Date of Encounter: 11/25/18 Time of Encounter: 12:35 - Discharge Diagnosis (1) Impaired mobility and ADLs Priority: Primary Status: Acute (2) Atrial fibrillation Priority: Secondary Status: Chronic Qualifiers: Atrial fibrillation type: chronic Qualified Code(s): I48.2 - Chronic atrial fibrillation (3) Diabetes Priority: Secondary Status: Chronic Qualifiers: Diabetes mellitus type: type 2 Diabetes mellitus fdc insulin use: with fdc use Diabetes mellitus complication status: with kidney complications Diabetes mellitus complication detail: with chronic kidney disease Chronic kidney disease stage: stage 3 (moderate) Qualified Code(s): E11.22 - Type 2 diabetes mellitus with diabetic chronic kidney disease; N18.3 - Chronic kidney disease, stage 3 (moderate); Z79.4 - USP (current) use of insulin (4) TAN (obstructive sleep apnea) Priority: Secondary Status: Chronic (5) Macrocytosis Priority: Secondary Status: Acute (6) CKD (chronic kidney disease) stage 3, GFR 30-59 ml/min Priority: Secondary Status: Chronic (7) CHF (congestive heart failure) Priority: Secondary Status: Chronic Qualifiers: Heart failure type: systolic Heart failure chronicity: chronic Qualified Code(s): I50.22 - Chronic systolic (congestive) heart failure (8) Essential tremor Priority: Secondary Status: Chronic (9) Diabetic neuropathy Priority: Secondary Status: Chronic Qualifiers: Diabetes mellitus type: type 2 Diabetes mellitus complication detail: diabetic polyneuropathy Qualified Code(s): E11.42 - Type 2 diabetes mellitus with diabetic polyneuropathy (10) Hypertension Priority: Secondary Status: Chronic Qualifiers: Hypertension type: essential hypertension Qualified Code(s): I10 - Essential (primary) hypertension Hospital course: Mr. Storm is a 82 year old male who was hospitalized at [facility] November 14 after presenting with concern for sepsis from [facility]. He was started empirically on antibiotics. After procalcitonin returned WNL and blood cultures showed no growth, antibiotics were discontinued November 16. Viral respiratory panel was negative. He had acute delirium/encephalopathy that improved. It was felt he would benefit from swing bed stay prior to returning to independent living at home. Initial orders were written by the discharging physicians at [facility]. I saw him on November 21 and performed the swing bed history and physical. He had physical therapy and occupational therapy evaluations with ongoing intervention. He made satisfactory progress. On November 25 he wished to be discharged home. INR was 1.5 on day of discharge. Coumadin dose will be increased to 6 mg/8 mg every other day alternating. He will follow at [facility] for further titration. Hemoglobin A1c returned elevated at 9.0%. His PCP can adjust medications as needed. His PCP can further address need for CPAP/BiPAP. He has declined use due to improperly fitting mask. He will follow with his PCP Dr. Galileo James within 1 week. - Time Spent with Patient Total time spent providing and/or coordinating discharge services: - Discharge Medications Prescriptions: New Potassium Chloride 20 meq PO BID #14 tab.er.prt Continued Testosterone Cypionate [Depo-Testosterone] 1 ml IM Q10D OxyCODONE/APAP 10/325 [Percocet 10/325 MG] 1 tab PO QID Albuterol Sulfate [Ventolin Hfa] 2 puff IH DAILY PRN PRN Reason: Wheezing Duloxetine HCl [Cymbalta] 60 mg PO DAILY Omeprazole [PriLOSEC] 20 mg PO DAILY Diltiazem CD (24hr) [Cardizem CD] 240 mg PO DAILY #30 cap.er.24h Metoprolol [Lopressor] 50 mg PO BID #60 tablet Simvastatin [Zocor] 40 mg PO HS Insulin NPH Hum/Reg Insulin Hm [Novolin 70-30 100 Unit/ml Vial] 45 units SQ BID Primidone [Mysoline] 250 mg PO HS Gabapentin [Neurontin] 800 mg PO TID #0 Digoxin [Lanoxin] 0.25 mg PO DAILY #30 tablet Tamsulosin HCl [Flomax] 0.4 mg PO DAILY Changed Bumetanide [Bumex] 6 mg PO DAILY #30 tablet Warfarin [Coumadin] 7 mg PO DAILY@1800 #0 Home Medications: Insulin NPH Hum/Reg Insulin Hm [Novolin 70-30 100 Unit/ml Vial] 45 units SQ BID 10/22/14 [History] Simvastatin [Zocor] 40 mg PO HS 10/22/14 [History] Primidone [Mysoline] 250 mg PO HS 04/18/17 [History] Albuterol Sulfate [Ventolin Hfa] 2 puff IH DAILY PRN 10/05/17 [History] OxyCODONE/APAP 10/325 [Percocet 10/325 MG] 1 tab PO QID 10/05/17 [History] Testosterone Cypionate [Depo-Testosterone] 1 ml IM Q10D 10/05/17 [History] Duloxetine HCl [Cymbalta] 60 mg PO DAILY 11/28/17 [History] Omeprazole [PriLOSEC] 20 mg PO DAILY 11/28/17 [History] Diltiazem CD (24hr) [Cardizem CD] 240 mg PO DAILY #30 cap.er.24h 11/30/17 [Rx] Metoprolol [Lopressor] 50 mg PO BID #60 tablet 11/30/17 [Rx] Gabapentin [Neurontin] 800 mg PO TID #0 07/29/18 [Rx] Digoxin [Lanoxin] 0.25 mg PO DAILY #30 tablet 08/05/18 [Rx] Tamsulosin HCl [Flomax] 0.4 mg PO DAILY 11/14/18 [History] Bumetanide [Bumex] 6 mg PO DAILY #30 tablet 11/25/18 [Rx] Potassium Chloride 20 meq PO BID #14 tab.er.prt 11/25/18 [Rx] Warfarin [Coumadin] 7 mg PO DAILY@1800 #0 11/25/18 [Rx] Allergies/Adverse Reactions: Allergy/AdvReac Type Severity Reaction Status Date / Time No Known Allergies Allergy Verified 11/14/18 03:53 Date of admission: 11/20/18 15:50 Primary care physician: Galileo James MD Consults: 11/20/18 15:54 Consult to Night Club Manager [CONS] Routine Reason for SW Consult: discharge planning 11/20/18 15:59 Consult to Physical Therapy [CONS] Routine Comment: Evaluate, develop and implement POC Reason for Consult: weakness Does patient have active BEDREST order?: No Is patient medically & hemodynamically stable?: Yes OT [Consult to Occupational Therapy] [CONS] Routine Comment: Evaluate, develop and implement POC Reason for Consult: Weakness Does patient have active BEDREST order?: No Is patient medically & hemodynamically stable?: Yes - Constitutional Vitals: Temp Pulse Resp BP Pulse Ox 97.5 F L 82 16 113/74 97 11/25/18 06:24 11/25/18 06:24 11/25/18 06:24 11/25/18 06:24 11/25/18 06:24 - Patient Status Disposition: Home, Self-Care - Discharge Instructions Follow Up With: Galileo James MD [Primary Care Provider] - 1 week - Diet and Activity Activity: as per physical therapy, wear oxygen at all times Diet: diabetic diet
--- NOTE | 2018-11-25 12:52 | Physician Discharge Referral ---
Home Health/Hosp Referral Info Transfer to: Home Health Attending Provider: Byron Provider in Charge Post Discharge: PCP (Galileo James M.D.) - Diagnosis (1) Impaired mobility and ADLs Priority: Primary Status: Acute (2) Atrial fibrillation Priority: Secondary Status: Chronic (3) Diabetes Priority: Secondary Status: Chronic (4) TAN (obstructive sleep apnea) Priority: Secondary Status: Chronic (5) Macrocytosis Priority: Secondary Status: Acute (6) CKD (chronic kidney disease) stage 3, GFR 30-59 ml/min Priority: Secondary Status: Chronic (7) CHF (congestive heart failure) Priority: Secondary Status: Chronic (8) Essential tremor Priority: Secondary Status: Chronic (9) Diabetic neuropathy Priority: Secondary Status: Chronic (10) Hypertension Priority: Secondary Status: Chronic - Respiratory Orders Oxygen / L per min (2 L/m by nasal cannula 18/09.) Smoking Cessation: Smoking cessation has been advised. For more information, call the [employer] Tobacco Quit Line at 7-095-LPEB-NOW. - Diet/Nutrition Diet/Nutrition Orders: No Concentrated Sweets - Activity Activity Orders: Walker - Services Needed Following services are medically necessary services: Nursing, Home Health Aide, Physical Therapy, Occupational Therapy - Transfer Medications Prescriptions: Potassium Chloride 20 meq PO BID #14 tab.er.prt Transmission Status: Pending to [facility] Home Medications: Insulin NPH Hum/Reg Insulin Hm [Novolin 70-30 100 Unit/ml Vial] 45 units SQ BID 10/22/14 [History] Simvastatin [Zocor] 40 mg PO HS 10/22/14 [History] Primidone [Mysoline] 250 mg PO HS 04/18/17 [History] Albuterol Sulfate [Ventolin Hfa] 2 puff IH DAILY PRN 10/05/17 [History] OxyCODONE/APAP 10/325 [Percocet 10/325 MG] 1 tab PO QID 10/05/17 [History] Testosterone Cypionate [Depo-Testosterone] 1 ml IM Q10D 10/05/17 [History] Duloxetine HCl [Cymbalta] 60 mg PO DAILY 11/28/17 [History] Omeprazole [PriLOSEC] 20 mg PO DAILY 11/28/17 [History] Diltiazem CD (24hr) [Cardizem CD] 240 mg PO DAILY #30 cap.er.24h 11/30/17 [Rx] Metoprolol [Lopressor] 50 mg PO BID #60 tablet 11/30/17 [Rx] Gabapentin [Neurontin] 800 mg PO TID #0 07/29/18 [Rx] Digoxin [Lanoxin] 0.25 mg PO DAILY #30 tablet 08/05/18 [Rx] Tamsulosin HCl [Flomax] 0.4 mg PO DAILY 11/14/18 [History] Bumetanide [Bumex] 6 mg PO DAILY #30 tablet 11/25/18 [Rx] Potassium Chloride 20 meq PO BID #14 tab.er.prt 11/25/18 [Rx] Warfarin [Coumadin] 7 mg PO DAILY@1800 #0 11/25/18 [Rx] Allergies/Adverse Reactions: Allergy/AdvReac Type Severity Reaction Status Date / Time No Known Allergies Allergy Verified 11/14/18 03:53 Certification: Further, I certify that my clinical findings support that this patient is homebound (i.e. absences from home require considerable and taxing effort and are for medical reasons or [employer] services or infrequently or short duration when for other reasons) because: Homebound Reason: Leaving home requires considerable and taxing effort due to condition (Impaired walking ability due to CHF and essential tremor.) Attestation: My signature below is to certify that this patient is under my care and that I, or nurse practitioner, or a physician's occupational therapist assistants working with me, has a [id number] encounter with this patient.
[2018-11-25] MEDS ORDERED: FLU Vac QV 19-20 (6Month+)/PF 0.5 ML SYRINGE IM ONE (13:01)
== END 2018-11-25 13:44 | disposition home or self-care (01) | DRG 92 ==
LOC: INPPIK 15:50
PROVIDERS: ADMIT Internal Medicine; ATTEND Internal Medicine

== ENCOUNTER 2018-11-29 14:20 | Observation (INO) ==
[2018-11-29] MEDS ORDERED: *HR* Dextrose 50 % in Water (Vial) 50 ML VIAL IVP ONE (14:23)
--- NOTE | 2018-11-29 14:25 | Emergency Department Note ---
Disposition Clinical Impression: Delirium due to general medical condition, Hypoglycemia Disposition: Admitted As Inpatient Condition: Fair Referrals: Yady Franco CNP [Advanced Practice Nurse] - Forms: ED Satisfaction Letter Time of Disposition: 16:12 Altered Mental Status HPI - General Chief Complaint: ED Altered Mental Status Stated Complaint: hypoglycemia Time Seen by Provider: 11/29/18 14:23 - History of Present Illness HPI Narrative: Patient reports relatively normal day. He states he took his normal morning insulin and saw his family doctor for routine checkup. Upon getting home he developed altered mental status and a squad was called. He was found to have a blood sugar of 29 with a recheck of 23. EMS did try to establish an IV and admi nistered glucagon intramuscular. He reportedly was too confused to try any type of oral glucose. He is transported without difficulty. Prior to arrival I recheck blood sugar was 45. He arrives here sleepy but answering questions. He states "I feel fine". He relates that he took his burning insulin but did not have lunch because of the doctor's appointment. He immediately inquires as to what his blood sugars were. He denies a new headache or visual changes. He denies chest pain, palpitation or shortness of breath. He denies abdominal pain, nausea, vomiting or diarrhea. He denies any localized extremity numbness, tingling or weakness. The family had told EMS that he recently was admitted for altered mental status and decreased blood sugar. EMS did transmit an EKG on this patient performed at 1:47 PM. This demonstrated atrial fibrillation with RVR with a conductive rate of 113. Patient appeared to have a left anterior fascicular block. He has an axis of -68, and a QT/QTc is 334/426. No acute ST or T-wave changes for ischemia or infarction. This is on my interpretation. 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 confirmed by: family member Pain Severity: none Consistency of Symptoms: waxing and waning (Currently improving after glucagon) Context: history of similar presentation, diabetes Associated symptoms: Denies: chest pain, cough, diaphoresis, fever, chills, headaches, loss of appetite, malaise, nausea/vomiting, rash, seizure, shortness of breath, syncope, weakness, foul smelling urine, difficulty walking, diarrhea, incontinence Treatments prior to arrival: other (Glucagon) - Related Data Home Medications Medication Instructions Recorded Confirmed Insulin NPH Hum/Reg Insulin Hm 35 units SQ BID 10/22/14 11/29/18 [Novolin 70-30 100 Unit/ml Vial] Simvastatin [Zocor] 40 mg PO HS 10/22/14 11/29/18 Primidone [Mysoline] 250 mg PO HS 04/18/17 11/29/18 Albuterol Sulfate [Ventolin Hfa] 2 puff IH DAILY PRN 10/05/17 11/29/18 OxyCODONE/APAP 10 [Percocet 1 tab PO QID 10/05/17 11/29/18 10325 MG] Testosterone Cypionate 1 ml IM Q10D 10/05/17 11/29/18 [Depo-Testosterone] Duloxetine HCl [Cymbalta] 60 mg PO DAILY 11/28/17 11/29/18 Omeprazole [PriLOSEC] 20 mg PO DAILY 11/28/17 11/29/18 Tamsulosin HCl [Flomax] 0.4 mg PO DAILY 11/14/18 11/29/18 Previous Rx's Medication Instructions Recorded Diltiazem CD (24hr) [Cardizem CD] 240 mg PO DAILY #30 cap.er.24h 11/30/17 Metoprolol [Lopressor] 50 mg PO BID #60 tablet 11/30/17 Gabapentin [Neurontin] 800 mg PO TID #0 07/29/18 Digoxin [Lanoxin] 0.25 mg PO DAILY #30 tablet 08/05/18 Bumetanide [Bumex] 6 mg PO DAILY #30 tablet 11/25/18 Potassium Chloride 20 meq PO BID #14 tab.er.prt 11/25/18 Warfarin [Coumadin] 7 mg PO DAILY@1800 #0 11/25/18 Allergies Allergy/AdvReac Type Severity Reaction Status Date / Time No Known Allergies Allergy Verified 11/14/18 03:53 All systems ED: reviewed and negative except as stated. Past Medical History - Past Medical History Attestation: Yes The following information was validated with the patient. Source: patient, old records reviewed, obtained from family, nursing notes reviewed Medical history: Reports: arthritis, atrial fibrillation, CHF, DVT, diabetes, hyperlipidemia, hypertension, other Surgical history: Reports: appendectomy, hip replacement, knee replacement, orthopedic, other Psychiatric history: Reports: depression - Social History Smoking Status: Never smoker Smokeless Tobacco Status: No Alcohol use: Reports: none Drug use: Reports: none Physical Exam - General Limitations: no limitations General appearance: alert, in no apparent distress - Head Head exam: atraumatic, normocephalic, normal inspection - Eye Eye exam: Present: normal appearance, PERRL, EOMI - ENT ENT exam: normal exam, normal oropharynx, mucous membranes moist - Neck Neck exam: Present: normal inspection, full ROM, trachea midline - Chest Chest inspection: Present: normal inspection, symmetric chest wall rise - Respiratory Respiratory exam: Present: normal lung sounds bilaterally. Absent: respiratory distress, wheezes, prolonged expiratory phase - Cardiovascular Cardiovascular exam: Present: tachycardia, irregular rhythm, normal heart sounds - Abdominal Exam Abdominal exam: Present: soft, Non-Tender, normal bowel sounds. Absent: tenderness, distention, guarding, rebound, rigidity - Extremities Exam Extremities exam: Present: normal inspection, full ROM, normal capillary refill. Absent: tenderness, pedal edema - Expanded Lower Extremity Exam Neurovascular/Tendon exam: Present: normal capillary refill Gait: not tested/not observed - Neurological Exam Neurological exam: Present: alert, oriented X3, CN II-XII intact, reflexes normal. Absent: motor sensory deficit - Psychiatric Psychiatric exam: Present: normal affect, normal mood. Absent: agitated, anxious - Skin Skin exam: Present: warm, dry, intact, normal color. Absent: cyanosis, diaphoresis, pallor Course Course Narrative: 1500: The patient has had an Accu-Chek of 149. He remained somnolent. He does or rales to move extremities in to look at the examiner. He then just falls back asleep. A repeat Accu-Chek is been ordered and the CT had contemplated if this is in or above the normal range. He did just see Dr. Galileo James this morning. He is reported to be unable to get out of the car well by the time of arriving back to his residence. Due to his recent episodes of hypoglycemia, he has had his insulin reduced from 45 units twice a day to 35 in the morning and 32 in the evening by Dr. Matthews on discharge on November 25. He will likely need further adjustment of his medications. The patient's chemistries are pending at this time from the lab. 1508: The patient's repeat Accu-Chek is again 149. CT head has been ordered while we await return of other testing. I reviewed his record and ended to dig oxin to his laboratories. He was admitted to [facility] from November 14 of the . There is concern for sepsis but all cultures were negative and antibiotics discontinued on the . He was here for swelling bed in rehabilitation from November 20 to the . His family does note that he had. Of altered mental status after his previous admission for blood sugar of 30. He was diagnosed as having some metabolic encephalopathic changes which seem to be recurring. 1555: With return of all testing, the patient remained somnolent. I reviewed his recent history with the family. After an episode of profound hypoglycemia he remained altered in mental status over the course of days. He currently will awaken but is certainly not an condition to go home. I placed a page to Dr. Matthews to discuss inpatient observation. He was discharged by Dr. Matthews on November 25 for similar problems. 1610: Care has been discussed with Dr. Matthews. He is agreeable with inpatient observation. Orders have been obtained for his observation. He will be seen on arrival to the floor. Vital Signs Temperature 97.7 F 11/29/18 14:20 Pulse Rate 109 11/29/18 14:20 Respiratory Rate 14 11/29/18 14:20 Blood Pressure 166/86 11/29/18 14:20 O2 Sat by Pulse Oximetry 93 11/29/18 14:20 Temperature 97.7 F 11/29/18 14:20 Pulse Rate 86 11/29/18 15:49 Respiratory Rate 16 11/29/18 15:49 Blood Pressure 110/80 11/29/18 15:49 O2 Sat by Pulse Oximetry 96 11/29/18 15:49 Oxygen Delivery Oxygen Delivery Room Air Altered Mental Status - Differential Diagnosis Likely: hypoglycemia, hyponatremia - Medical Records Medical records reviewed: Yes I reviewed the patient's medical records. - Lab Data Lab results reviewed: Yes I reviewed the patient's lab results. Result diagrams: 11/29/18 14:41 11/29/18 14:41 Lab Results 11/29/18 11/29/18 11/29/18 Range/Units 14:41 14:41 14:41 WBC 9.8 (4.3-11.1) K/mcL RBC 4.59 (4.19-5.50) M/mcL Hgb 14.9 (12.9-16.9) g/dL Hct 45.9 (37.5-50.1) % MCV 100.0 (83.0-100.0) fL MCH 32.5 (28.0-33.3) pg MCHC 32.5 (31.6-35.5) g/dL RDW 13.5 (11.5-14.5) % Plt Count 260 (140-400) K/mcL MPV 10.3 (9.4-12.4) fL Immature Gran % 0.5 (0-4) % Seg Neutrophils % 84.2 % Lymphocytes % 8.5 % Monocytes % 5.2 % Eosinophils % 1.2 % Basophils % 0.4 % Neutrophils # 8.3 (1.6-8.9) K/mcL Lymphocytes # 0.8 (0.6-4.6) K/mcL Monocytes # 0.5 (0.0-1.3) K/mcL Eosinophils # 0.1 (0.0-0.6) K/mcL Basophils # 0.0 (0.0-0.2) K/mcL PT 34.9 H D (9.4-12.1) Seconds INR 3.1 D APTT 54.0 H (26.0-36.0) Seconds Sodium 139 (136-145) mEq/L Potassium 3.6 (3.5-5.1) mEq/L Chloride 102 (98-107) mEq/L Carbon Dioxide 29 (23-29) mEq/L BUN 21 (8-23) mg/dL Creatinine 1.17 (0.70-1.30) mg/dL Est GFR ( Amer) > 60 (> 60) Est GFR (Non-Af Amer) 60 (> 60) BUN/Creatinine Ratio 18 (6-26) Glucose 175 H (70-105) mg/dL POC Glucose (70-99) mg/dL Calculated Osmolality 295 (280-300) Calcium 8.6 (8.6-10.3) mg/dL Troponin I < 0.03 (< 0.04) ng/mL Digoxin (0.8-2.0) ng/mL 11/29/18 11/29/18 Range/Units 14:41 14:47 WBC (4.3-11.1) K/mcL RBC (4.19-5.50) M/mcL Hgb (12.9-16.9) g/dL Hct (37.5-50.1) % MCV (83.0-100.0) fL MCH (28.0-33.3) pg MCHC (31.6-35.5) g/dL RDW (11.5-14.5) % Plt Count (140-400) K/mcL MPV (9.4-12.4) fL Immature Gran % (0-4) % Seg Neutrophils % % Lymphocytes % % Monocytes % % Eosinophils % % Basophils % % Neutrophils # (1.6-8.9) K/mcL Lymphocytes # (0.6-4.6) K/mcL Monocytes # (0.0-1.3) K/mcL Eosinophils # (0.0-0.6) K/mcL Basophils # (0.0-0.2) K/mcL PT (9.4-12.1) Seconds INR APTT (26.0-36.0) Seconds Sodium (136-145) mEq/L Potassium (3.5-5.1) mEq/L Chloride (98-107) mEq/L Carbon Dioxide (23-29) mEq/L BUN (8-23) mg/dL Creatinine (0.70-1.30) mg/dL Est GFR ( Amer) (> 60) Est GFR (Non-Af Amer) (> 60) BUN/Creatinine Ratio (6-26) Glucose (70-105) mg/dL POC Glucose 149 H (70-99) mg/dL Calculated Osmolality (280-300) Calcium (8.6-10.3) mg/dL Troponin I (< 0.04) ng/mL Digoxin 0.3 L (0.8-2.0) ng/mL - Radiology Data Radiology results reviewed: Yes I reviewed the patient's radiology results. CT head is performed of the bone and soft tissue windows. This demonstrates prominence of the lateral ventricles without hydrocephalus. Patient has some frontal atrophy present that appears appropriate for age. There is no evidence for acute intracranial bleed, shift, mass or edema. There is no area of hypoattenuation suggest ischemic stroke. This is on my interpretation. Impressions Head CT 11/29/18 15:47 IMPRESSION: No acute intracranial abnormality. D/ / Jairo Hare / Jairo Hare Interpreting Provider: Jairo Hare - EKG Data EKG attestation: Yes I reviewed and interpreted this EKG. EKG shows normal: axis, intervals, QRS complexes, ST-T waves Rate: tachycardia (108) Rhythm: A.Fib [place]/QRS: LAHB/LAFB Interpretation: no acute changes TPA Checklist - LKW: 3-4.5 hrs Add. Warnings/Precautions Patient/family understanding: The patient/family members have been counseled and understood the risk, benefit, and alternatives of treatment.
[2018-11-29] MEDS ORDERED: D10% in Water 500 ML IVC SCH ×2 (14:30→17:53)
[2018-11-29 14:49] LABS: Basophils % 0.4 %; Eosinophils # 0.1 K/mcL (0.0-0.6); Eosinophils % 1.2 %; Hematocrit 45.9 % (37.5-50.1); Hemoglobin 14.9 g/dL (12.9-16.9); Immature Granulocytes % 0.5 % (0-4); Lymphocytes # 0.8 K/mcL (0.6-4.6); Lymphocytes % 8.5 %; Mean Corpuscular HGB Conc 32.5 g/dL (31.6-35.5); Mean Corpuscular Hemoglobin 32.5 pg (28.0-33.3); Mean Platelet Volume 10.3 fL (9.4-12.4); Monocytes # 0.5 K/mcL (0.0-1.3); Monocytes % 5.2 %; Neutrophils # 8.3 K/mcL (1.6-8.9); Platelet Count 260 K/mcL (140-400); Red Blood Count 4.59 M/mcL (4.19-5.50); Red Cell Distribution Width 13.5 % (11.5-14.5); Segmented Neutrophils % 84.2 %; White Blood Count 9.8 K/mcL (4.3-11.1)
[2018-11-29 14:56] LABS: INR 3.1; Prothrombin Time 34.9 Seconds (9.4-12.1)
[2018-11-29 15:07] LABS: BUN/Creatinine Ratio 18 (6-26); Blood Urea Nitrogen 21 mg/dL (8-23); Calcium 8.6 mg/dL (8.6-10.3); Carbon Dioxide 29 mEq/L (23-29); Chloride 102 mEq/L (98-107); Glucose 175 mg/dL (70-105); Osmolality,Calculated 295 (280-300); Potassium 3.6 mEq/L (3.5-5.1); Sodium 139 mEq/L (136-145); eGFR For African Americans > 60 (> 60); eGFR For Non-African Americans 60 (> 60)
[2018-11-29 15:08] LABS: Troponin I < 0.03 ng/mL (< 0.04)
[2018-11-29] MEDS ORDERED: Albuterol 2.5 MG/3 ML NEBULIZER IH PRN (17:53)
[2018-11-29] MEDS ORDERED: Naloxone 0.4 MG/ML INJ IVP PRN (17:53)
[2018-11-29] MEDS ORDERED: *HR* Dextrose 50 % in Water (Vial) 50 ML VIAL IVP PRN (17:53)
[2018-11-29] MEDS ORDERED: D5% in Water 1,000 ML IVC PRN (17:53)
[2018-11-29] MEDS ORDERED: Ondansetron ODT 4 MG TAB.RAPDIS SL PRN (17:53)
[2018-11-29] MEDS ORDERED: Dextrose Gel 15 GM/37.5 ML TUBE PO PRN ×2 (17:53)
[2018-11-29] MEDS ORDERED: *HR* Warfarin 4 MG TABLET PO SCH (18:00)
[2018-11-29] MEDS ORDERED: *HR* Warfarin 3 MG TABLET PO SCH (18:15)
[2018-11-29] MEDS: Insulin LISPRO 300 UNITS/3 ML VIAL SQ SCH (18:25)
[2018-11-29] MEDS: Gabapentin 400 MG CAPSULE PO SCH (19:31)
[2018-11-29] MEDS: *HR* OxyCODONE/APAP 10/325 TABLET PO SCH ×2 (19:32→22:25)
[2018-11-29] MEDS: Ipratropium/Albuterol Neb 3 ML IH SCH (22:20)
[2018-11-30] MEDS: Ipratropium/Albuterol Neb 3 ML IH SCH ×2 (04:47→10:00)
[2018-11-30] MEDS: Insulin LISPRO 300 UNITS/3 ML VIAL SQ SCH ×2 (08:27→12:41)
[2018-11-30] MEDS: Gabapentin 400 MG CAPSULE PO SCH ×2 (08:27→14:45)
[2018-11-30] MEDS: *HR* OxyCODONE/APAP 10/325 TABLET PO SCH ×2 (08:28→12:40)
[2018-11-30] MEDS ORDERED: *HR* Digoxin 0.25 MG TABLET PO SCH (09:00)
[2018-11-30] MEDS ORDERED: Diltiazem CD (24hr) 240 MG CAPSULE PO SCH (09:00)
[2018-11-30] MEDS ORDERED: Bumetanide 1 MG TABLET PO SCH (09:00)
[2018-11-30 11:09] VITALS: BP 122/78
--- NOTE | 2018-11-30 12:47 | Electrocardiograph Report ---
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
--- NOTE | 2018-11-30 15:18 | Internal Med History&Physical ---
Date of Encounter: 11/30/18 Time of Encounter: 14:55 Assessment and Plan (1) Hypoglycemia Current visit: Yes Status: Acute Now resolved. Reason for hypoglycemic episode not completely clear. He feels back to his baseline and wishes to be discharged home. Internal Medicine - H&P: HPI Chief complaint: Hypoglycemia Admitted From: Emergency Dept Plans for Post Hospital Care: Home History of present illness: Mr. Storm is a 82 year old male who came to emergency room after developing hypoglycemia. He reports he ate usual breakfast quantity and took usual insulin dose earlier that day. Following a physician visit and evaluation at the Coumadin clinic he was noted to be less responsive. Family was unable to get him out of the car at home. EMS was called and found blood sugar of 29 MG/DL. He was brought to emergency room where hypoglycemia was confirmed. He was given a bolus of IV dextrose followed by maintenance IV D10. He was admitted to [facility] floor for ongoing care needs. He states he feels back to his baseline now and wishes to be discharged home. He reports his dose of 70/30 insulin has not changed recently from 35 units a.m. and 32 units p.m. He checks blood sugars generally twice daily. He was diagnosed with DM 2 approximately 2007. He has hyperlipidemia and hypogonadism. He denies known thyroid disease. Past Med Surg Social Fam HX - Past Medical History Medical history: arthritis, atrial fibrillation, CHF, DVT, diabetes, hyperlipid emia, hypertension, other Additional medical history: parkinson's Psychiatric history: depression - Past Surgical History Surgical History: appendectomy, hip replacement, knee replacement, orthopedic, other Additional surgical history: Left hip, right hip and Left knee replacement. - Social History Smoking Status: Never smoker Smokeless Tobacco Status: No Alcohol use: none Drug use: none - Family History Father Living Status: Hx Family Cardiac Disorders: No Hx Family Respiratory Disorders: Yes Mother Living Status: Hx Family Cardiac Disorders: No Internal Medicine - H&P: Meds Insulin NPH Hum/Reg Insulin Hm [Novolin 70-30 100 Unit/ml Vial] 35 units SQ BID 10/22/14 [History] Simvastatin [Zocor] 40 mg PO HS 10/22/14 [History] Primidone [Mysoline] 250 mg PO HS 04/18/17 [History] Albuterol Sulfate [Ventolin Hfa] 2 puff IH DAILY PRN 10/05/17 [History] OxyCODONE/APAP 10/325 [Percocet 10/325 MG] 1 tab PO QID 10/05/17 [History] Testosterone Cypionate [Depo-Testosterone] 1 ml IM Q10D 10/05/17 [History] Duloxetine HCl [Cymbalta] 60 mg PO DAILY 11/28/17 [History] Omeprazole [PriLOSEC] 20 mg PO DAILY 11/28/17 [History] Diltiazem CD (24hr) [Cardizem CD] 240 mg PO DAILY #30 cap.er.24h 11/30/17 [Rx] Metoprolol [Lopressor] 50 mg PO BID #60 tablet 11/30/17 [Rx] Gabapentin [Neurontin] 800 mg PO TID #0 07/29/18 [Rx] Digoxin [Lanoxin] 0.25 mg PO DAILY #30 tablet 08/05/18 [Rx] Tamsulosin HCl [Flomax] 0.4 mg PO DAILY 11/14/18 [History] Bumetanide [Bumex] 6 mg PO DAILY #30 tablet 11/25/18 [Rx] Potassium Chloride 20 meq PO BID #14 tab.er.prt 11/25/18 [Rx] Warfarin [Coumadin] 7 mg PO DAILY@1800 #0 11/25/18 [Rx] Allergy/AdvReac Type Severity Reaction Status Date / Time No Known Allergies Allergy Verified 11/14/18 03:53 All Systems PM: A 10-system review of systems was performed and is negative for pertinent findings except as documented above in the HPI. Review of systems: Review of systems from his 11/21/2018 [facility] hospitalization admission were review ed and revised as below. Gen.: His weight increased from 108.862 kg on 10/05/2017 to 121.109 kg on admission November 2017 and has minimally changed to 117.48 kg on admission now. Cardiovascular: He has history of hypertension. He had TTE 12/11/2017 during [facility] stay which showed LVEF of 45-50% with small pericardial effusion but no evidence of cardiac tamponade. There was trace tricuspid regurgitation. Interventricular septum and posterior wall thickness measurements were 1.42 and 1.02 cm respectively. There was LAE at 4.30 cm. He had atrial fibrillation and was started on Cardizem, metoprolol, and Coumadin. Limited echocardiogram 06/05/2018 showed LVEF 45-50% with small pericardial effusion. [facility]OSSMAN 10/08/2018 showed LVEF of 45-50%. There was mild aortic regurgitation, moderate mitral regurgitation, and moderate tricuspid regurgitation. Biatrial enlargement was reported without measurements recorded. He has not had documented EST or heart catheter. He has not had DVT or pulmonary embolus. Respiratory: He is a lifelong nonsmoker and has no known chronic lung disease and does not use home oxygen. He had pulmonary function testing on 07/13/2017 which showed FVC 61% predicted, FEV1 65% predicted, FEV1/FVC 76%, MVV 41% predicted, RV 92% predicted, and DLCO (corrected) 75% predicted. 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 He has been diagnosed with TAN but does not use CPAP/BiPAP due to mask not fitting well. GI: He has occasional GERD symptoms. He had pancreatitis approximately 10 years ago from presumed alcohol use. He has had no recurrence. He denies disorders of his liver. : He has BPH. 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 He denies other kidney bladder or prostate disorders. Neurologic: He has diabetic peripheral neuropathy and benign essential tremor. He was considered for deep brain stimulation surgery July 2018 but this has not occurred. He denies large distribution strokes or seizures. Endocrine: As per history of present illness Hematology/oncology: He denies blood disorders cancers or anemia Psychiatric: He has anxiety and depression but denies other mental health issues. [place] skeletal: He has DJD and chronic low back pain. He has had left total knee replacement and bilateral total hip replacements in the past. He denies gout or other bone joint or muscle disorders. - Constitutional Vitals: Temp Pulse Resp BP Pulse Ox 97.5 F L 92 16 122/78 94 11/30/18 11:07 11/30/18 11:07 11/30/18 11:07 11/30/18 11:07 11/30/18 11:31 Exam: Gen.: He is a well-developed overweight male resting comfortably in bed who appears in no acute distress HEENT: Head is atraumatic and normocephalic. Eyes: EOMI. There is no scleral icterus. Mouth: Mucosa is moist. Neck: Supple and nontender. There is no thyromegaly or adenopathy noted. Heart: Regular without murmurs gallops or ectopics Lungs: No wheezes or crackles are heard. Abdomen: Soft and nontender. No masses or guarding are noted. He has a midline ventral hernia in the mid upper abdominal wall. Extremities: He has woody edema with dermal thickening and chronic venous stasis pigmentation changes. Dorsalis pedis and posterior tibial pulses are trace palpable bilaterally. Neurologic: Mental status: He is talkative and a good historian. Cranial nerves: Smile is symmetric. Forehead wrinkles bilaterally. Tongue protrudes midline. EOMI. Motor has slight tremor at rest but becomes slightly more pronounced with the right hand on intentional movement. Cerebellar: Finger to nose is intact bilaterally. Skin: Warm and dry Internal Med - H&P Results - Labs CBC & Chem 7: 11/29/18 14:41 11/29/18 14:41 Labs: Short CBC 11/29/18 Range/Units 14:41 WBC 9.8 (4.3-11.1) K/mcL Hgb 14.9 (12.9-16.9) g/dL Plt Count 260 (140-400) K/mcL BMP 11/29/18 14:41 Sodium 139 Potassium 3.6 - Impressions ITS Impressions Head CT 11/29/18 15:47 IMPRESSION: No acute intracranial abnormality. D/ / Jairo Hare / Jairo Hare Interpreting Provider: Jairo Hare
--- NOTE | 2018-11-30 15:24 | Discharge Summary ---
Date of Encounter: 11/30/18 Time of Encounter: 14:55 - Discharge Diagnosis (1) Hypoglycemia Priority: Primary Status: Resolved Hospital course: Mr. Storm is a 82 year old male who came to emergency room after developing hypoglycemia. He reports he ate usual breakfast quantity and took usual insulin dose earlier that day. Following a physician visit and evaluation at the Coumadin clinic he was noted to be less responsive. Family was unable to get him out of the car at home. EMS was called and found blood sugar of 29 MG/DL. He was brought to emergency room where hypoglycemia was confirmed. He was given a bolus of IV dextrose followed by maintenance IV D10. He was admitted to [facility] for ongoing care needs. I saw him the afternoon of November 30 and performed the history physical and discharge. He was started on IV D10 in emergency room. This was discontinued when blood sugars were maintained in the safe range. When I saw him he felt back to his baseline and wished to be discharged home. He will reduce his dose of 70/30 insulin to 30 units a.m. and 25 units p.m. I encouraged him to check blood sugars before meals and at bedtime 2 days per week and show readings to his PCP. Follow with Dr. Galileo James within 1 week. - Time Spent with Patient Total time spent providing and/or coordinating discharge services: - Discharge Medications Prescriptions: Continued Testosterone Cypionate [Depo-Testosterone] 1 ml IM Q10D OxyCODONE/APAP 10/325 [Percocet 10/325 MG] 1 tab PO QID Albuterol Sulfate [Ventolin Hfa] 2 puff IH DAILY PRN PRN Reason: Wheezing Duloxetine HCl [Cymbalta] 60 mg PO DAILY Omeprazole [PriLOSEC] 20 mg PO DAILY Diltiazem CD (24hr) [Cardizem CD] 240 mg PO DAILY #30 cap.er.24h Metoprolol [Lopressor] 50 mg PO BID #60 tablet Simvastatin [Zocor] 40 mg PO HS Primidone [Mysoline] 250 mg PO HS Gabapentin [Neurontin] 800 mg PO TID #0 Digoxin [Lanoxin] 0.25 mg PO DAILY #30 tablet Tamsulosin HCl [Flomax] 0.4 mg PO DAILY Potassium Chloride 20 meq PO BID #14 tab.er.prt Bumetanide [Bumex] 6 mg PO DAILY #30 tablet Warfarin [Coumadin] 7 mg PO DAILY@1800 #0 Changed Insulin NPH Hum/Reg Insulin Hm [Novolin 70-30 100 Unit/ml Vial] 30 units SQ BID #0 Home Medications: Simvastatin [Zocor] 40 mg PO HS 10/22/14 [History] Primidone [Mysoline] 250 mg PO HS 04/18/17 [History] Albuterol Sulfate [Ventolin Hfa] 2 puff IH DAILY PRN 10/05/17 [History] OxyCODONE/APAP 10/325 [Percocet 10/325 MG] 1 tab PO QID 10/05/17 [History] Testosterone Cypionate [Depo-Testosterone] 1 ml IM Q10D 10/05/17 [History] Duloxetine HCl [Cymbalta] 60 mg PO DAILY 11/28/17 [History] Omeprazole [PriLOSEC] 20 mg PO DAILY 11/28/17 [History] Diltiazem CD (24hr) [Cardizem CD] 240 mg PO DAILY #30 cap.er.24h 11/30/17 [Rx] Metoprolol [Lopressor] 50 mg PO BID #60 tablet 11/30/17 [Rx] Gabapentin [Neurontin] 800 mg PO TID #0 07/29/18 [Rx] Digoxin [Lanoxin] 0.25 mg PO DAILY #30 tablet 08/05/18 [Rx] Tamsulosin HCl [Flomax] 0.4 mg PO DAILY 11/14/18 [History] Bumetanide [Bumex] 6 mg PO DAILY #30 tablet 11/25/18 [Rx] Potassium Chloride 20 meq PO BID #14 tab.er.prt 11/25/18 [Rx] Warfarin [Coumadin] 7 mg PO DAILY@1800 #0 11/25/18 [Rx] Insulin NPH Hum/Reg Insulin Hm [Novolin 70-30 100 Unit/ml Vial] 30 units SQ BID #0 11/30/18 [Rx] Allergies/Adverse Reactions: Allergy/AdvReac Type Severity Reaction Status Date / Time No Known Allergies Allergy Verified 11/14/18 03:53 Date of admission: 11/29/18 16:18 Primary care physician: Galileo James MD - Constitutional Vitals: Temp Pulse Resp BP Pulse Ox 97.5 F L 92 16 122/78 94 11/30/18 11:07 11/30/18 11:07 11/30/18 11:07 11/30/18 11:07 11/30/18 11:31 - Patient Status Disposition: Home, Self-Care Condition: Fair - Discharge Instructions Follow Up With: Galileo James MD [Primary Care Provider] - 1 week - Diet and Activity Activity: resume usual activities as tolerated Diet: diabetic diet
[2018-11-30] MEDS ORDERED: *HR* Warfarin 2 MG TABLET PO SCH (18:00)
== END 2018-11-30 16:10 | disposition home or self-care (01) ==
LOC: EMEROOPIK 14:20 → INPPIK 14:20
PROVIDERS: ADMIT Internal Medicine; ATTEND Internal Medicine

== ENCOUNTER 2019-10-20 11:51 | Inpatient (IN) ==
[2019-10-20] MEDS ORDERED: *HR* Dextrose 50 % in Water (Vial) 50 ML VIAL IVP PRN (16:01)
[2019-10-20] MEDS ORDERED: Dextrose Gel 15 GM/37.5 ML TUBE PO PRN ×2 (16:01)
[2019-10-20] MEDS ORDERED: D5% in Water 1,000 ML IVC PRN (16:01)
[2019-10-20] MEDS: Insulin LISPRO 300 UNITS/3 ML VIAL SQ SCH ×2 (17:05→21:00)
[2019-10-20] MEDS ORDERED: *HR* Warfarin 3 MG TABLET PO SCH (18:00)
[2019-10-20 18:08] LABS: ABG Base Excess 4 mEq/L (-2 to 3); ABG HCO3 29 mEq/L (21-27); ABG Oxygen Saturation 96 % (95-98); ABG PCO2 44 mmHg (35-45); ABG PH 7.42 pH Units (7.32-7.45); ABG PO2 80 mmHg (85-104); ABG TCO2 30 mEq/L (20-26)
[2019-10-20] MEDS: Gabapentin 400 MG CAPSULE PO SCH (21:00)
[2019-10-20] MEDS: Metoprolol 100 MG TABLET PO SCH (21:13)
[2019-10-21] MEDS: Insulin LISPRO 300 UNITS/3 ML VIAL SQ SCH ×4 (08:30→20:38)
[2019-10-21] MEDS: Metoprolol 100 MG TABLET PO SCH ×2 (08:33→20:39)
[2019-10-21] MEDS: *HR* Digoxin 0.125 MG TABLET PO SCH (08:33)
[2019-10-21] MEDS: predniSONE 10 MG TABLET PO SCH (08:33)
[2019-10-21] MEDS: Torsemide 20 MG TABLET PO SCH (08:34)
[2019-10-21] MEDS: DilTIAZem CD (24hr) 180 MG CAP.ER.24H PO SCH (08:34)
[2019-10-21] MEDS: Gabapentin 400 MG CAPSULE PO SCH (08:34)
[2019-10-21] MEDS ORDERED: predniSONE 20 MG TABLET PO SCH (09:00)
[2019-10-21 14:04] LABS: INR 2.7
[2019-10-21] MEDS: Gabapentin 300 MG CAPSULE PO SCH ×2 (14:17→20:39)
[2019-10-21] MEDS ORDERED: Warfarin perPT PO PRN (18:00)
[2019-10-21] MEDS ORDERED: *HR* Warfarin 2 MG TABLET PO ONE (18:00)
[2019-10-21] MEDS ORDERED: *HR* Warfarin 2 MG TABLET PO SCH (18:00)
[2019-10-21] MEDS ORDERED: haloperidoL 1 MG TABLET PO PRN (18:35)
[2019-10-21] MEDS: QUEtiapine Fumarate 25 MG TABLET PO SCH (20:39)
[2019-10-22 06:55] LABS: Hematocrit 34.1 % (37.5-50.1); Mean Corpuscular HGB Conc 29.3 g/dL (31.6-35.5); Mean Corpuscular Hemoglobin 25.3 pg (28.0-33.3); Mean Corpuscular Volume 86.1 fL (83.0-100.0); Mean Platelet Volume 9.7 fL (9.4-12.4); Platelet Count 265 K/mcL (140-400); Red Blood Count 3.96 M/mcL (4.19-5.50); Red Cell Distribution Width 20.6 % (11.5-14.5)
[2019-10-22 07:00] LABS: INR 2.5; Prothrombin Time 28.2 Seconds (9.4-12.1)
[2019-10-22 07:13] LABS: BUN/Creatinine Ratio 20 (6-26); Blood Urea Nitrogen 23 mg/dL (8-23); Calcium 8.3 mg/dL (8.6-10.3); Carbon Dioxide 31 mEq/L (23-29); Chloride 101 mEq/L (98-107); Glucose 176 mg/dL (70-105); Magnesium 2.2 mg/dL (1.6-2.6); Osmolality,Calculated 296 (280-300); Potassium 4.4 mEq/L (3.5-5.1); Sodium 139 mEq/L (136-145); eGFR For African Americans > 60 (> 60); eGFR For Non-African Americans 60 (> 60)
[2019-10-22] MEDS: *HR* Digoxin 0.125 MG TABLET PO SCH (07:44)
[2019-10-22] MEDS: Torsemide 20 MG TABLET PO SCH (07:45)
[2019-10-22] MEDS: predniSONE 10 MG TABLET PO SCH (07:45)
[2019-10-22] MEDS: Gabapentin 300 MG CAPSULE PO SCH ×3 (07:45→20:48)
[2019-10-22] MEDS: Insulin LISPRO 300 UNITS/3 ML VIAL SQ SCH ×4 (07:45→20:46)
[2019-10-22] MEDS: DilTIAZem CD (24hr) 180 MG CAP.ER.24H PO SCH (07:45)
[2019-10-22] MEDS: Metoprolol 100 MG TABLET PO SCH ×2 (07:45→20:47)
[2019-10-22 10:29] LABS: Estimated Average Glucose 169 mg/dl
[2019-10-22] MEDS ORDERED: *HR* Warfarin 2 MG TABLET PO ONE (18:00)
[2019-10-22] MEDS: QUEtiapine Fumarate 25 MG TABLET PO SCH (20:48)
[2019-10-23 05:47] LABS: Prothrombin Time 22.2 Seconds (9.4-12.1)
[2019-10-23] MEDS: DilTIAZem CD (24hr) 180 MG CAP.ER.24H PO SCH (08:23)
[2019-10-23] MEDS: predniSONE 10 MG TABLET PO SCH (08:23)
[2019-10-23] MEDS: Torsemide 20 MG TABLET PO SCH (08:24)
[2019-10-23] MEDS: Metoprolol 100 MG TABLET PO SCH ×2 (08:24→21:47)
[2019-10-23] MEDS: Gabapentin 300 MG CAPSULE PO SCH ×3 (08:24→21:48)
[2019-10-23] MEDS: *HR* Digoxin 0.125 MG TABLET PO SCH (08:24)
[2019-10-23] MEDS: Insulin LISPRO 300 UNITS/3 ML VIAL SQ SCH ×4 (08:25→21:45)
[2019-10-23] MEDS ORDERED: *HR* Warfarin 2 MG TABLET PO ONE (18:00)
[2019-10-23] MEDS: Insulin DETEMIR 100 UNIT/ML X5UNITS SQ SCH (21:47)
[2019-10-23] MEDS: QUEtiapine Fumarate 25 MG TABLET PO SCH (21:47)
[2019-10-24 05:30] LABS: INR 1.7; Prothrombin Time 19.8 Seconds (9.4-12.1)
[2019-10-24] MEDS: predniSONE 10 MG TABLET PO SCH (09:30)
[2019-10-24] MEDS: Metoprolol 100 MG TABLET PO SCH ×2 (09:30→21:26)
[2019-10-24] MEDS: *HR* Digoxin 0.125 MG TABLET PO SCH (09:30)
[2019-10-24] MEDS: Insulin DETEMIR 100 UNIT/ML X5UNITS SQ SCH ×2 (09:30→21:23)
[2019-10-24] MEDS: Gabapentin 300 MG CAPSULE PO SCH ×3 (09:30→21:15)
[2019-10-24] MEDS: DilTIAZem CD (24hr) 180 MG CAP.ER.24H PO SCH (09:30)
[2019-10-24] MEDS: Torsemide 20 MG TABLET PO SCH (09:30)
[2019-10-24] MEDS: Insulin LISPRO 300 UNITS/3 ML VIAL SQ SCH ×4 (09:31→21:24)
[2019-10-24] MEDS ORDERED: *HR* Warfarin 5 MG TABLET PO ONE (18:30)
[2019-10-24] MEDS: QUEtiapine Fumarate 25 MG TABLET PO SCH (21:15)
[2019-10-24] MEDS: *HR* OxyCODONE/APAP 10/325 TABLET PO PRN (21:26)
[2019-10-25 05:42] LABS: INR 1.6; Prothrombin Time 18.2 Seconds (9.4-12.1)
[2019-10-25] MEDS: predniSONE 10 MG TABLET PO SCH (07:55)
[2019-10-25] MEDS: Torsemide 20 MG TABLET PO SCH (07:55)
[2019-10-25] MEDS: Gabapentin 300 MG CAPSULE PO SCH ×3 (07:55→20:17)
[2019-10-25] MEDS: *HR* Digoxin 0.125 MG TABLET PO SCH (07:55)
[2019-10-25] MEDS: Metoprolol 100 MG TABLET PO SCH ×2 (07:55→20:17)
[2019-10-25] MEDS: DilTIAZem CD (24hr) 180 MG CAP.ER.24H PO SCH (07:55)
[2019-10-25] MEDS: Insulin LISPRO 300 UNITS/3 ML VIAL SQ SCH ×4 (07:56→20:18)
[2019-10-25] MEDS: Insulin DETEMIR 100 UNIT/ML X5UNITS SQ SCH ×2 (08:06→20:23)
[2019-10-25] MEDS: *HR* OxyCODONE/APAP 10/325 TABLET PO PRN ×2 (11:43→20:17)
[2019-10-25] MEDS ORDERED: *HR* Warfarin 3 MG TABLET PO ONE (18:00)
[2019-10-25] MEDS: QUEtiapine Fumarate 25 MG TABLET PO SCH (20:17)
[2019-10-26 07:23] LABS: INR 1.4; Prothrombin Time 15.7 Seconds (9.4-12.1)
[2019-10-26] MEDS: Torsemide 20 MG TABLET PO SCH (09:07)
[2019-10-26] MEDS: Gabapentin 300 MG CAPSULE PO SCH ×3 (09:07→21:04)
[2019-10-26] MEDS: DilTIAZem CD (24hr) 180 MG CAP.ER.24H PO SCH (09:07)
[2019-10-26] MEDS: Insulin LISPRO 300 UNITS/3 ML VIAL SQ SCH ×4 (09:08→21:02)
[2019-10-26] MEDS: Metoprolol 100 MG TABLET PO SCH ×2 (09:08→21:05)
[2019-10-26] MEDS: predniSONE 10 MG TABLET PO SCH (09:08)
[2019-10-26] MEDS: Insulin DETEMIR 100 UNIT/ML X5UNITS SQ SCH ×2 (09:08→21:03)
[2019-10-26] MEDS: *HR* Digoxin 0.125 MG TABLET PO SCH (09:08)
[2019-10-26] MEDS: *HR* OxyCODONE/APAP 10/325 TABLET PO PRN ×3 (11:25→21:59)
[2019-10-26] MEDS ORDERED: *HR* Warfarin 3 MG TABLET PO ONE (18:00)
[2019-10-26] MEDS: QUEtiapine Fumarate 25 MG TABLET PO SCH (21:04)
[2019-10-27 06:35] LABS: INR 1.5; Prothrombin Time 17.4 Seconds (9.4-12.1)
[2019-10-27 07:43] VITALS: BP 110/64
[2019-10-27] MEDS: Insulin DETEMIR 100 UNIT/ML X5UNITS SQ SCH (08:59)
[2019-10-27] MEDS: Insulin LISPRO 300 UNITS/3 ML VIAL SQ SCH ×2 (08:59→12:07)
[2019-10-27] MEDS: Gabapentin 300 MG CAPSULE PO SCH (09:00)
[2019-10-27] MEDS: DilTIAZem CD (24hr) 180 MG CAP.ER.24H PO SCH (09:00)
[2019-10-27] MEDS: predniSONE 10 MG TABLET PO SCH (09:00)
[2019-10-27] MEDS: Torsemide 20 MG TABLET PO SCH (09:00)
[2019-10-27] MEDS: Metoprolol 100 MG TABLET PO SCH (09:00)
[2019-10-27] MEDS: *HR* Digoxin 0.125 MG TABLET PO SCH (09:00)
[2019-10-27] MEDS ORDERED: *HR* Warfarin 3 MG TABLET PO ONE (18:00)
== END 2019-10-27 12:25 | disposition home health service (06) | DRG 308 ==
LOC: INPPIK 16:17
PROVIDERS: ADMIT Family Medicine; ATTEND Family Medicine

== ENCOUNTER 2020-08-12 16:55 | Inpatient (IN) ==
[2020-08-12] MEDS ORDERED: Naloxone 0.4 MG/ML INJ IVP PRN (17:40)
[2020-08-12] MEDS ORDERED: MOM Conc 10 ML UD.LIQ PO PRN (17:40)
[2020-08-12 17:53] LABS: Basophils # 0.1 K/mcL (0.0-0.2); Basophils % 0.5 %; Eosinophils # 0.5 K/mcL (0.0-0.6); Eosinophils % 4.4 %; Hematocrit 32.9 % (37.5-50.1); Hemoglobin 11.2 g/dL (12.9-16.9); Immature Granulocytes % 0.9 % (0-4); Lymphocytes # 1.2 K/mcL (0.6-4.6); Lymphocytes % 10.5 %; Mean Corpuscular Hemoglobin 34.9 pg (28.0-33.3); Mean Corpuscular Volume 102.5 fL (83.0-100.0); Mean Platelet Volume 9.5 fL (9.4-12.4); Monocytes # 1.2 K/mcL (0.0-1.3); Monocytes % 10.3 %; Neutrophils # 8.3 K/mcL (1.6-8.9); Platelet Count 398 K/mcL (140-400); Red Blood Count 3.21 M/mcL (4.19-5.50); Red Cell Distribution Width 12.3 % (11.5-14.5); Segmented Neutrophils % 73.4 %; White Blood Count 11.3 K/mcL (4.3-11.1)
[2020-08-12] MEDS ORDERED: Sennosides/Docusate Sodium TABLET PO PRN (17:59)
[2020-08-12 18:08] LABS: Alanine Aminotransferase 40 Units/L (7-52); Albumin 3.4 g/dL (3.5-5.7); Albumin/Globulin Ratio 0.9 (1.1-2.2); Alkaline Phosphatase 252 Units/L (34-104); Aspartate Amino Transferase 48 Units/L (13-39); BUN/Creatinine Ratio 19 (6-26); Bilirubin,Total 0.4 mg/dL (0.3-1.0); Blood Urea Nitrogen 22 mg/dL (8-23); Calcium 8.7 mg/dL (8.6-10.3); Carbon Dioxide 27 mEq/L (23-29); Chloride 99 mEq/L (98-107); Globulin 3.6 g/dL (2.4-3.5); Glucose 54 mg/dL (70-105); Osmolality,Calculated 281 (280-300); Potassium 4.8 mEq/L (3.5-5.1); Sodium 135 mEq/L (136-145); eGFR For African Americans > 60 (> 60); eGFR For Non-African Americans > 60 (> 60)
[2020-08-12] MEDS ORDERED: D5% in Water 1,000 ML IVC PRN (18:08)
[2020-08-12] MEDS ORDERED: Dextrose Gel 15 GM/37.5 ML TUBE PO PRN ×2 (18:08)
[2020-08-12] MEDS ORDERED: *HR* Dextrose 50 % in Water (Vial) 50 ML VIAL IVP PRN (18:08)
[2020-08-12] MEDS: Acetaminophen 325 MG TABLET PO PRN (18:48)
[2020-08-12] MEDS: Metoprolol XL (24 HR) Succ 50 MG TAB.ER.24H PO SCH (19:55)
[2020-08-12] MEDS: Insulin LISPRO 300 UNITS/3 ML VIAL SUBQ SCH (19:55)
[2020-08-12 23:48] LABS: Bilirubin,Urine Negative (Negative); Blood,Urine Negative (Negative); Clarity,Urine Clear (Clear); Color,Urine Yellow (Yellow); Glucose,Urine (UA) 100 mg/dL (Normal); Ketones,Urine Negative (Negative); Leukocyte Esterase,Urine Negative (Negative); Nitrite,Urine Negative (Negative); PH,Urine 5.5 pH Units (5.0-8.0); Protein,Urine Trace mg/dL (Neg-Trace); Specific Gravity,Urine 1.025 (1.010-1.025); Urobilinogen,Urine Normal (Normal)
[2020-08-12 23:53] LABS: Mucus,Urine Few per lpf (None-Few); RBC,Urine 0-3 per hpf (0-3); Squamous Epithelial Cell,Urine Few per hpf (None-Few); WBC,Urine 0-3 per hpf (0-3)
[2020-08-12 23:54] LABS: Hyaline Casts,Urine Few per lpf (None Seen)
[2020-08-13] MEDS: Acetaminophen 325 MG TABLET PO PRN ×3 (03:19→20:02)
[2020-08-13 06:06] LABS: Basophils # 0.1 K/mcL (0.0-0.2); Basophils % 0.7 %; Eosinophils # 0.5 K/mcL (0.0-0.6); Hematocrit 35.6 % (37.5-50.1); Hemoglobin 11.7 g/dL (12.9-16.9); Immature Granulocytes % 1.2 % (0-4); Lymphocytes # 1.2 K/mcL (0.6-4.6); Lymphocytes % 12.2 %; Mean Corpuscular HGB Conc 32.9 g/dL (31.6-35.5); Mean Corpuscular Hemoglobin 34.2 pg (28.0-33.3); Mean Corpuscular Volume 104.1 fL (83.0-100.0); Mean Platelet Volume 9.9 fL (9.4-12.4); Monocytes # 1.1 K/mcL (0.0-1.3); Monocytes % 10.8 %; Platelet Count 425 K/mcL (140-400); Red Blood Count 3.42 M/mcL (4.19-5.50); Red Cell Distribution Width 12.5 % (11.5-14.5); Segmented Neutrophils % 70.1 %; White Blood Count 10.1 K/mcL (4.3-11.1)
[2020-08-13 06:07] LABS: BUN/Creatinine Ratio 16 (6-26); Blood Urea Nitrogen 18 mg/dL (8-23); Calcium 8.9 mg/dL (8.6-10.3); Carbon Dioxide 29 mEq/L (23-29); Chloride 99 mEq/L (98-107); Glucose 160 mg/dL (70-105); Osmolality,Calculated 285 (280-300); Potassium 4.8 mEq/L (3.5-5.1); Sodium 135 mEq/L (136-145); eGFR For African Americans > 60 (> 60); eGFR For Non-African Americans > 60 (> 60)
[2020-08-13] MEDS: Torsemide 20 MG TABLET PO SCH (07:54)
[2020-08-13] MEDS: Metoprolol XL (24 HR) Succ 50 MG TAB.ER.24H PO SCH ×2 (07:55→20:02)
[2020-08-13] MEDS: Multivit/Ca/Min/Fe/FA 1 TAB TABLET PO SCH (07:55)
[2020-08-13] MEDS: Insulin LISPRO 300 UNITS/3 ML VIAL SUBQ SCH ×4 (07:55→20:03)
[2020-08-13] MEDS: DilTIAZem CD (24hr) 180 MG CAP.ER.24H PO SCH (07:55)
[2020-08-13] MEDS: *HR* Digoxin 0.125 MG TABLET PO SCH (07:55)
[2020-08-13] MEDS: Aspirin Enteric Coated 325 MG Tablet PO SCH (07:55)
[2020-08-13] MEDS: lisinopriL 5 MG TABLET PO SCH (07:55)
[2020-08-13] MEDS: Finasteride 5 MG TABLET PO SCH (07:55)
[2020-08-13] MEDS: *HR* OxyCODONE/APAP 10/325 TABLET PO PRN ×3 (08:48→21:03)
[2020-08-13] MEDS: Gabapentin 400 MG CAPSULE PO SCH ×3 (08:48→20:02)
[2020-08-13] MEDS: Benzocaine 20% 12 APPL GEL..GRAM. TP PRN (15:56)
[2020-08-13] MEDS: *HR* Metformin 500 MG TABLET PO SCH (16:46)
[2020-08-14] MEDS: *HR* OxyCODONE/APAP 10/325 TABLET PO PRN ×3 (03:08→15:34)
[2020-08-14] MEDS: *HR* Enoxaparin 40 MG/0.4 ML SYRINGE SQ SCH (05:42)
[2020-08-14 06:32] LABS: Basophils # 0.1 K/mcL (0.0-0.2); Basophils % 0.6 %; Eosinophils # 0.5 K/mcL (0.0-0.6); Eosinophils % 4.7 %; Hematocrit 33.2 % (37.5-50.1); Hemoglobin 11.1 g/dL (12.9-16.9); Immature Granulocytes % 1.6 % (0-4); Lymphocytes # 1.3 K/mcL (0.6-4.6); Lymphocytes % 13.4 %; Mean Corpuscular HGB Conc 33.4 g/dL (31.6-35.5); Mean Corpuscular Hemoglobin 34.7 pg (28.0-33.3); Mean Corpuscular Volume 103.8 fL (83.0-100.0); Mean Platelet Volume 9.9 fL (9.4-12.4); Monocytes # 1.1 K/mcL (0.0-1.3); Monocytes % 11.7 %; Neutrophils # 6.6 K/mcL (1.6-8.9); Platelet Count 341 K/mcL (140-400); Red Cell Distribution Width 12.2 % (11.5-14.5); White Blood Count 9.8 K/mcL (4.3-11.1)
[2020-08-14 06:52] LABS: BUN/Creatinine Ratio 16 (6-26); Blood Urea Nitrogen 17 mg/dL (8-23); Calcium 8.7 mg/dL (8.6-10.3); Carbon Dioxide 29 mEq/L (23-29); Chloride 99 mEq/L (98-107); Glucose 200 mg/dL (70-105); Osmolality,Calculated 287 (280-300); Sodium 135 mEq/L (136-145); eGFR For African Americans > 60 (> 60); eGFR For Non-African Americans > 60 (> 60)
[2020-08-14] MEDS: DilTIAZem CD (24hr) 180 MG CAP.ER.24H PO SCH (07:55)
[2020-08-14] MEDS: Metoprolol XL (24 HR) Succ 50 MG TAB.ER.24H PO SCH ×2 (07:55→21:49)
[2020-08-14] MEDS: Multivit/Ca/Min/Fe/FA 1 TAB TABLET PO SCH (07:55)
[2020-08-14] MEDS: Gabapentin 400 MG CAPSULE PO SCH ×3 (07:55→21:49)
[2020-08-14] MEDS: *HR* Digoxin 0.125 MG TABLET PO SCH (07:56)
[2020-08-14] MEDS: Finasteride 5 MG TABLET PO SCH (07:56)
[2020-08-14] MEDS: *HR* Metformin 500 MG TABLET PO SCH ×2 (07:57→16:02)
[2020-08-14] MEDS: Aspirin Enteric Coated 325 MG Tablet PO SCH (07:57)
[2020-08-14] MEDS: Torsemide 20 MG TABLET PO SCH (07:58)
[2020-08-14] MEDS: lisinopriL 5 MG TABLET PO SCH (07:59)
[2020-08-14] MEDS: Insulin LISPRO 300 UNITS/3 ML VIAL SUBQ SCH ×4 (08:00→21:47)
[2020-08-14] MEDS: Insulin NPH/REG 70/30 100 UNIT/ML (x5UNIT) SUBQ SCH ×2 (08:55→21:48)
[2020-08-14] MEDS: Ondansetron 4 MG/2 ML VIAL IVP PRN (14:00)
[2020-08-15] MEDS: *HR* OxyCODONE/APAP 10/325 TABLET PO PRN ×4 (00:21→19:35)
[2020-08-15] MEDS: *HR* Enoxaparin 40 MG/0.4 ML SYRINGE SQ SCH (05:01)
[2020-08-15 07:35] LABS: Basophils # 0.1 K/mcL (0.0-0.2); Basophils % 0.7 %; Eosinophils # 0.5 K/mcL (0.0-0.6); Hematocrit 34.1 % (37.5-50.1); Hemoglobin 11.1 g/dL (12.9-16.9); Immature Granulocytes % 1.6 % (0-4); Lymphocytes # 1.5 K/mcL (0.6-4.6); Lymphocytes % 14.8 %; Mean Corpuscular HGB Conc 32.6 g/dL (31.6-35.5); Mean Corpuscular Volume 104.6 fL (83.0-100.0); Mean Platelet Volume 10.1 fL (9.4-12.4); Monocytes # 1.2 K/mcL (0.0-1.3); Monocytes % 11.5 %; Neutrophils # 6.7 K/mcL (1.6-8.9); Platelet Count 338 K/mcL (140-400); Red Blood Count 3.26 M/mcL (4.19-5.50); Red Cell Distribution Width 12.3 % (11.5-14.5); Segmented Neutrophils % 66.4 %; White Blood Count 10.1 K/mcL (4.3-11.1)
[2020-08-15 07:54] LABS: BUN/Creatinine Ratio 18 (6-26); Blood Urea Nitrogen 20 mg/dL (8-23); Calcium 8.7 mg/dL (8.6-10.3); Carbon Dioxide 32 mEq/L (23-29); Chloride 99 mEq/L (98-107); Glucose 168 mg/dL (70-105); Osmolality,Calculated 290 (280-300); Potassium 4.4 mEq/L (3.5-5.1); Sodium 137 mEq/L (136-145); eGFR For African Americans > 60 (> 60); eGFR For Non-African Americans > 60 (> 60)
[2020-08-15] MEDS: DilTIAZem CD (24hr) 180 MG CAP.ER.24H PO SCH (08:07)
[2020-08-15] MEDS: Multivit/Ca/Min/Fe/FA 1 TAB TABLET PO SCH (08:07)
[2020-08-15] MEDS: *HR* Metformin 500 MG TABLET PO SCH ×2 (08:07→16:56)
[2020-08-15] MEDS: *HR* Digoxin 0.125 MG TABLET PO SCH (08:08)
[2020-08-15] MEDS: Metoprolol XL (24 HR) Succ 50 MG TAB.ER.24H PO SCH ×2 (08:08→19:36)
[2020-08-15] MEDS: Gabapentin 400 MG CAPSULE PO SCH ×3 (08:08→19:35)
[2020-08-15] MEDS: Torsemide 20 MG TABLET PO SCH (08:08)
[2020-08-15] MEDS: lisinopriL 5 MG TABLET PO SCH (08:09)
[2020-08-15] MEDS: Finasteride 5 MG TABLET PO SCH (08:09)
[2020-08-15] MEDS: Insulin LISPRO 300 UNITS/3 ML VIAL SUBQ SCH ×4 (08:10→19:30)
[2020-08-15] MEDS: Aspirin Enteric Coated 325 MG Tablet PO SCH (08:10)
[2020-08-15] MEDS: Insulin NPH/REG 70/30 100 UNIT/ML (x5UNIT) SUBQ SCH ×2 (08:33→19:36)
[2020-08-15] MEDS: Ondansetron 4 MG/2 ML VIAL IVP PRN (12:57)
[2020-08-15] MEDS: Acetaminophen 325 MG TABLET PO PRN (23:03)
[2020-08-15] MEDS: Benzocaine 20% 12 APPL GEL..GRAM. TP PRN (23:04)
[2020-08-16] MEDS: *HR* OxyCODONE/APAP 10/325 TABLET PO PRN ×2 (02:13→12:22)
[2020-08-16] MEDS: *HR* Enoxaparin 40 MG/0.4 ML SYRINGE SQ SCH (04:47)
[2020-08-16] MEDS: Insulin LISPRO 300 UNITS/3 ML VIAL SUBQ SCH ×2 (07:30→12:10)
[2020-08-16] MEDS: *HR* Metformin 500 MG TABLET PO SCH (07:53)
[2020-08-16] MEDS: Aspirin Enteric Coated 325 MG Tablet PO SCH (07:53)
[2020-08-16] MEDS: Gabapentin 400 MG CAPSULE PO SCH ×2 (07:54→14:30)
[2020-08-16] MEDS: Multivit/Ca/Min/Fe/FA 1 TAB TABLET PO SCH (07:54)
[2020-08-16 08:05] LABS: Basophils # 0.1 K/mcL (0.0-0.2); Basophils % 0.7 %; Eosinophils # 0.6 K/mcL (0.0-0.6); Eosinophils % 6.1 %; Hematocrit 32.7 % (37.5-50.1); Hemoglobin 10.6 g/dL (12.9-16.9); Immature Granulocytes % 1.5 % (0-4); Lymphocytes # 1.3 K/mcL (0.6-4.6); Lymphocytes % 14.1 %; Mean Corpuscular HGB Conc 32.4 g/dL (31.6-35.5); Mean Corpuscular Volume 104.8 fL (83.0-100.0); Mean Platelet Volume 9.8 fL (9.4-12.4); Monocytes # 1.2 K/mcL (0.0-1.3); Monocytes % 12.7 %; Platelet Count 335 K/mcL (140-400); Red Blood Count 3.12 M/mcL (4.19-5.50); Red Cell Distribution Width 12.3 % (11.5-14.5); Segmented Neutrophils % 64.9 %; White Blood Count 9.2 K/mcL (4.3-11.1)
[2020-08-16 08:25] LABS: BUN/Creatinine Ratio 19 (6-26); Blood Urea Nitrogen 22 mg/dL (8-23); Calcium 8.7 mg/dL (8.6-10.3); Carbon Dioxide 31 mEq/L (23-29); Chloride 100 mEq/L (98-107); Glucose 88 mg/dL (70-105); Osmolality,Calculated 289 (280-300); Potassium 4.3 mEq/L (3.5-5.1); Sodium 138 mEq/L (136-145); eGFR For African Americans > 60 (> 60); eGFR For Non-African Americans 60 (> 60)
[2020-08-16] MEDS ORDERED: Insulin NPH/REG 70/30 100 UNIT/ML (x5UNIT) SUBQ SCH (08:30)
[2020-08-16] MEDS: lisinopriL 5 MG TABLET PO SCH (09:22)
[2020-08-16] MEDS: *HR* Digoxin 0.125 MG TABLET PO SCH (09:22)
[2020-08-16] MEDS: Torsemide 20 MG TABLET PO SCH (09:23)
[2020-08-16] MEDS: DilTIAZem CD (24hr) 180 MG CAP.ER.24H PO SCH (09:23)
[2020-08-16] MEDS: Metoprolol XL (24 HR) Succ 50 MG TAB.ER.24H PO SCH (09:24)
[2020-08-16] MEDS: Finasteride 5 MG TABLET PO SCH (09:26)
[2020-08-16 12:22] VITALS: BP 94/61
== END 2020-08-16 15:12 | disposition other institution (70) | DRG 638 ==
LOC: INPPIK 16:55 → EMEROOPIK 16:55 → INPPIK 18:19
PROVIDERS: ADMIT Family Medicine; ATTEND Family Medicine

== ENCOUNTER 2020-08-16 09:34 | Inpatient (IN) ==
[2020-08-16] MEDS ORDERED: Acetaminophen 325 MG TABLET PO PRN (15:25)
[2020-08-16] MEDS ORDERED: Sennosides/Docusate Sodium TABLET PO PRN (15:25)
[2020-08-16] MEDS: Insulin NPH/REG 70/30 100 UNIT/ML (x5UNIT) SUBQ SCH (17:53)
[2020-08-16] MEDS: *HR* Metformin 500 MG TABLET PO SCH (17:53)
[2020-08-16] MEDS: Metoprolol XL (24 HR) Succ 50 MG TAB.ER.24H PO SCH (20:34)
[2020-08-16] MEDS: *HR* OxyCODONE/APAP 10/325 TABLET PO PRN (20:35)
[2020-08-16] MEDS: Gabapentin 400 MG CAPSULE PO SCH (20:35)
[2020-08-17] MEDS: *HR* Enoxaparin 40 MG/0.4 ML SYRINGE SQ SCH (05:14)
[2020-08-17 07:09] LABS: Basophils # 0.1 K/mcL (0.0-0.2); Basophils % 0.6 %; Eosinophils # 0.6 K/mcL (0.0-0.6); Eosinophils % 5.3 %; Hematocrit 33.6 % (37.5-50.1); Immature Granulocytes % 1.6 % (0-4); Lymphocytes # 1.3 K/mcL (0.6-4.6); Mean Corpuscular HGB Conc 32.7 g/dL (31.6-35.5); Mean Corpuscular Hemoglobin 33.8 pg (28.0-33.3); Mean Corpuscular Volume 103.4 fL (83.0-100.0); Mean Platelet Volume 9.8 fL (9.4-12.4); Monocytes # 1.1 K/mcL (0.0-1.3); Monocytes % 9.8 %; Neutrophils # 7.6 K/mcL (1.6-8.9); Platelet Count 333 K/mcL (140-400); Red Blood Count 3.25 M/mcL (4.19-5.50); Red Cell Distribution Width 12.3 % (11.5-14.5); Segmented Neutrophils % 70.7 %; White Blood Count 10.7 K/mcL (4.3-11.1)
[2020-08-17 07:33] LABS: BUN/Creatinine Ratio 17 (6-26); Blood Urea Nitrogen 18 mg/dL (8-23); Calcium 8.7 mg/dL (8.6-10.3); Carbon Dioxide 33 mEq/L (23-29); Chloride 99 mEq/L (98-107); Glucose 123 mg/dL (70-105); Osmolality,Calculated 287 (280-300); Potassium 4.6 mEq/L (3.5-5.1); Sodium 137 mEq/L (136-145); eGFR For African Americans > 60 (> 60); eGFR For Non-African Americans > 60 (> 60)
[2020-08-17] MEDS: Aspirin Enteric Coated 325 MG Tablet PO SCH (07:49)
[2020-08-17] MEDS: DilTIAZem CD (24hr) 180 MG CAP.ER.24H PO SCH (07:50)
[2020-08-17] MEDS: Gabapentin 400 MG CAPSULE PO SCH ×3 (07:50→19:57)
[2020-08-17] MEDS: Metoprolol XL (24 HR) Succ 50 MG TAB.ER.24H PO SCH ×2 (07:50→19:56)
[2020-08-17] MEDS: Multivit/Ca/Min/Fe/FA 1 TAB TABLET PO SCH (07:50)
[2020-08-17] MEDS: *HR* Digoxin 0.125 MG TABLET PO SCH (07:50)
[2020-08-17] MEDS: Finasteride 5 MG TABLET PO SCH (07:51)
[2020-08-17] MEDS: *HR* Metformin 500 MG TABLET PO SCH ×2 (07:51→16:32)
[2020-08-17] MEDS: Torsemide 20 MG TABLET PO SCH (07:51)
[2020-08-17] MEDS: lisinopriL 5 MG TABLET PO SCH (07:51)
[2020-08-17] MEDS: Insulin NPH/REG 70/30 100 UNIT/ML (x5UNIT) SUBQ SCH ×2 (07:52→16:32)
[2020-08-17] MEDS: ROSUVASTATIN 5MG PO SCH (07:53)
[2020-08-17] MEDS: *HR* OxyCODONE/APAP 10/325 TABLET PO PRN ×3 (07:55→19:57)
[2020-08-17] MEDS: QUEtiapine Fumarate 25 MG TABLET PO SCH (19:57)
[2020-08-18] MEDS: *HR* OxyCODONE/APAP 10/325 TABLET PO PRN ×4 (01:55→20:16)
[2020-08-18] MEDS: *HR* Enoxaparin 40 MG/0.4 ML SYRINGE SQ SCH (05:51)
[2020-08-18] MEDS: Gabapentin 400 MG CAPSULE PO SCH ×3 (08:04→20:13)
[2020-08-18] MEDS: Metoprolol XL (24 HR) Succ 50 MG TAB.ER.24H PO SCH ×2 (08:07→20:13)
[2020-08-18] MEDS: DilTIAZem CD (24hr) 180 MG CAP.ER.24H PO SCH (08:07)
[2020-08-18] MEDS: Aspirin Enteric Coated 325 MG Tablet PO SCH (08:07)
[2020-08-18] MEDS: Finasteride 5 MG TABLET PO SCH (08:07)
[2020-08-18] MEDS: *HR* Metformin 500 MG TABLET PO SCH ×2 (08:07→17:22)
[2020-08-18] MEDS: Torsemide 20 MG TABLET PO SCH (08:07)
[2020-08-18] MEDS: lisinopriL 5 MG TABLET PO SCH (08:07)
[2020-08-18] MEDS: Multivit/Ca/Min/Fe/FA 1 TAB TABLET PO SCH (08:07)
[2020-08-18] MEDS: *HR* Digoxin 0.125 MG TABLET PO SCH (08:07)
[2020-08-18] MEDS: ROSUVASTATIN 5MG PO SCH (08:08)
[2020-08-18] MEDS: Insulin NPH/REG 70/30 100 UNIT/ML (x5UNIT) SUBQ SCH ×2 (08:22→17:22)
[2020-08-18] MEDS: QUEtiapine Fumarate 25 MG TABLET PO SCH (20:13)
[2020-08-19] MEDS: *HR* Enoxaparin 40 MG/0.4 ML SYRINGE SQ SCH (06:13)
[2020-08-19] MEDS: *HR* OxyCODONE/APAP 10/325 TABLET PO PRN ×2 (06:13→12:28)
[2020-08-19 07:39] VITALS: BP 117/65
[2020-08-19] MEDS: Metoprolol XL (24 HR) Succ 50 MG TAB.ER.24H PO SCH (09:29)
[2020-08-19] MEDS: lisinopriL 5 MG TABLET PO SCH (09:29)
[2020-08-19] MEDS: Aspirin Enteric Coated 325 MG Tablet PO SCH (09:29)
[2020-08-19] MEDS: Gabapentin 400 MG CAPSULE PO SCH (09:29)
[2020-08-19] MEDS: *HR* Digoxin 0.125 MG TABLET PO SCH (09:29)
[2020-08-19] MEDS: *HR* Metformin 500 MG TABLET PO SCH (09:30)
[2020-08-19] MEDS: Insulin NPH/REG 70/30 100 UNIT/ML (x5UNIT) SUBQ SCH (09:30)
[2020-08-19] MEDS: Multivit/Ca/Min/Fe/FA 1 TAB TABLET PO SCH (09:30)
[2020-08-19] MEDS: Torsemide 20 MG TABLET PO SCH (09:30)
[2020-08-19] MEDS: DilTIAZem CD (24hr) 180 MG CAP.ER.24H PO SCH (09:30)
[2020-08-19] MEDS: Finasteride 5 MG TABLET PO SCH (09:30)
[2020-08-19] MEDS: ROSUVASTATIN 5MG PO SCH (09:31)
== END 2020-08-19 14:45 | disposition home health service (06) | DRG 945 ==
LOC: INPPIK 17:18
PROVIDERS: ADMIT Family Medicine; ATTEND Family Medicine

== ENCOUNTER 2020-09-29 10:47 | Observation (INO) ==
[2020-09-29 11:57] LABS: VBG HCO3 29 mEq/L (21-27); VBG PCO2 50 mmHg (41-51); VBG PH 7.37 pH Units (7.32-7.42); VBG PO2 53 mmHg (25-50)
[2020-09-29 11:58] LABS: Basophils % 0.2 %; Eosinophils # 0.6 K/mcL (0.0-0.6); Eosinophils % 4.1 %; Hematocrit 33.8 % (37.5-50.1); Hemoglobin 11.4 g/dL (12.9-16.9); Immature Granulocytes % 0.6 % (0-4); Lymphocytes # 1.3 K/mcL (0.6-4.6); Mean Corpuscular HGB Conc 33.7 g/dL (31.6-35.5); Mean Corpuscular Hemoglobin 33.7 pg (28.0-33.3); Mean Platelet Volume 9.8 fL (9.4-12.4); Monocytes # 1.1 K/mcL (0.0-1.3); Monocytes % 7.1 %; Neutrophils # 12.5 K/mcL (1.6-8.9); Platelet Count 264 K/mcL (140-400); Red Blood Count 3.38 M/mcL (4.19-5.50); Red Cell Distribution Width 12.1 % (11.5-14.5); White Blood Count 15.6 K/mcL (4.3-11.1)
[2020-09-29 12:07] LABS: INR 1.2; Prothrombin Time 13.4 Seconds (9.4-12.1)
[2020-09-29 12:10] LABS: Activated Partial Thrombo Time 32.2 Seconds (26.0-36.0)
[2020-09-29 12:15] LABS: Alanine Aminotransferase 25 Units/L (7-52); Albumin 3.6 g/dL (3.5-5.7); Albumin/Globulin Ratio 1.1 (1.1-2.2); Alkaline Phosphatase 188 Units/L (34-104); Aspartate Amino Transferase 39 Units/L (13-39); BUN/Creatinine Ratio 16 (6-26); Bilirubin,Direct 0.2 mg/dL (0.0-0.2); Bilirubin,Indirect 0.4 mg/dL (0.0-1.0); Bilirubin,Total 0.6 mg/dL (0.3-1.0); Blood Urea Nitrogen 18 mg/dL (8-23); Calcium 8.9 mg/dL (8.6-10.3); Carbon Dioxide 31 mEq/L (23-29); Chloride 98 mEq/L (98-107); Ethanol < 10 mg/dL (Less than 10); Globulin 3.3 g/dL (2.4-3.5); Glucose 213 mg/dL (70-105); Osmolality,Calculated 288 (280-300); Potassium 4.8 mEq/L (3.5-5.1); Sodium 135 mEq/L (136-145); Total Protein 6.9 g/dL (6.4-8.9); eGFR For African Americans > 60 (> 60); eGFR For Non-African Americans > 60 (> 60)
[2020-09-29 12:19] LABS: Troponin I < 0.03 ng/mL (< 0.04)
[2020-09-29 12:39] LABS: Bilirubin,Urine Negative (Negative); Blood,Urine Negative (Negative); Clarity,Urine Clear (Clear); Color,Urine Yellow (Yellow); Glucose,Urine (UA) 500 mg/dL (Normal); Ketones,Urine Negative (Negative); Leukocyte Esterase,Urine Negative (Negative); Nitrite,Urine Negative (Negative); Protein,Urine Trace mg/dL (Neg-Trace); Urobilinogen,Urine Normal (Normal)
[2020-09-29 12:46] LABS: Mucus,Urine Few per lpf (None-Few); RBC,Urine 0-3 per hpf (0-3); WBC,Urine 0-3 per hpf (0-3)
[2020-09-29] MEDS ORDERED: Acetaminophen 325 MG TABLET PO PRN (13:37)
[2020-09-29] MEDS ORDERED: Naloxone 0.4 MG/ML INJ IVP PRN (13:37)
[2020-09-29] MEDS ORDERED: Ondansetron ODT 4 MG TAB.RAPDIS SL PRN (13:37)
[2020-09-29] MEDS ORDERED: MOM Conc 10 ML UD.LIQ PO PRN (13:37)
[2020-09-29] MEDS ORDERED: Sennosides/Docusate Sodium TABLET PO PRN (13:51)
[2020-09-29] MEDS ORDERED: *HR* OxyCODONE/APAP 10/325 TABLET PO PRN (13:51)
[2020-09-29] MEDS ORDERED: *HR* Dextrose 50 % in Water (Vial) 50 ML VIAL IVP PRN (14:58)
[2020-09-29] MEDS ORDERED: D5% in Water 1,000 ML IVC PRN (14:58)
[2020-09-29] MEDS ORDERED: Dextrose Gel 15 GM/37.5 ML TUBE PO PRN ×2 (14:58)
[2020-09-29] MEDS: Gabapentin 400 MG CAPSULE PO SCH ×2 (16:27→20:18)
[2020-09-29] MEDS: *HR* Metformin 500 MG TABLET PO SCH (16:27)
[2020-09-29] MEDS: Insulin NPH/REG 70/30 100 UNIT/ML (x5UNIT) SUBQ SCH (16:29)
[2020-09-29] MEDS: Metoprolol XL (24 HR) Succ 50 MG TAB.ER.24H PO SCH (20:18)
[2020-09-29] MEDS ORDERED: QUEtiapine Fumarate 25 MG TABLET PO SCH (21:00)
[2020-09-30 02:52] VITALS: O2SAT 97
[2020-09-30 06:56] LABS: Hematocrit 32.9 % (37.5-50.1); Hemoglobin 11.1 g/dL (12.9-16.9); Mean Corpuscular HGB Conc 33.7 g/dL (31.6-35.5); Mean Corpuscular Hemoglobin 33.8 pg (28.0-33.3); Mean Corpuscular Volume 100.3 fL (83.0-100.0); Platelet Count 244 K/mcL (140-400); Red Blood Count 3.28 M/mcL (4.19-5.50); Red Cell Distribution Width 12.1 % (11.5-14.5); White Blood Count 11.7 K/mcL (4.3-11.1)
[2020-09-30 07:26] VITALS: BP 115/65; PULSE 80; RESP 18; TEMP 98.6
[2020-09-30 07:34] LABS: BUN/Creatinine Ratio 15 (6-26); Blood Urea Nitrogen 14 mg/dL (8-23); Calcium 8.8 mg/dL (8.6-10.3); Carbon Dioxide 30 mEq/L (23-29); Chloride 100 mEq/L (98-107); Glucose 154 mg/dL (70-105); Osmolality,Calculated 288 (280-300); Potassium 4.2 mEq/L (3.5-5.1); Sodium 137 mEq/L (136-145); eGFR For African Americans > 60 (> 60); eGFR For Non-African Americans > 60 (> 60)
[2020-09-30] MEDS: Metoprolol XL (24 HR) Succ 50 MG TAB.ER.24H PO SCH (08:40)
[2020-09-30] MEDS: Insulin NPH/REG 70/30 100 UNIT/ML (x5UNIT) SUBQ SCH (08:40)
[2020-09-30] MEDS: Gabapentin 400 MG CAPSULE PO SCH (08:41)
[2020-09-30] MEDS: *HR* Metformin 500 MG TABLET PO SCH (08:41)
[2020-09-30] MEDS ORDERED: Multivit/Ca/Min/Fe/FA 1 TAB TABLET PO SCH (09:00)
[2020-09-30] MEDS ORDERED: Aspirin Enteric Coated 325 MG Tablet PO SCH (09:00)
[2020-09-30] MEDS ORDERED: Finasteride 5 MG TABLET PO SCH (09:00)
[2020-09-30] MEDS ORDERED: DilTIAZem CD (24hr) 180 MG CAP.ER.24H PO SCH (09:00)
[2020-09-30] MEDS ORDERED: *HR* Digoxin 0.125 MG TABLET PO SCH (09:00)
[2020-09-30] MEDS ORDERED: Torsemide 20 MG TABLET PO SCH (09:00)
[2020-09-30] MEDS ORDERED: lisinopriL 5 MG TABLET PO SCH (09:00)
== END 2020-09-30 13:02 | disposition home health service (06) ==
LOC: EMEROOPIK 10:47 → INPPIK 10:47
PROVIDERS: ADMIT Family Medicine; ATTEND Family Medicine

== ENCOUNTER 2021-03-13 07:12 | Inpatient (IN) ==
[2021-03-13] MEDS ORDERED: Ipratropium/Albuterol Neb 3 ML IH ONE (07:14)
[2021-03-13] MEDS ORDERED: Azithromycin 500 MG in 0.9 % Sodium Chloride 250 ML IVPB ONE (07:14)
[2021-03-13] MEDS ORDERED: cefTRIAXone 2,000 MG in 0.9 % Sodium Chloride Mini Bag 100 ML IVPB ONE ×2 (07:14→07:45)
[2021-03-13] MEDS ORDERED: Dexamethasone Sodium Phos/PF 10 MG/ML VIAL IVP ONE (07:15)
[2021-03-13 07:43] LABS: Basophils % 0.2 %; Eosinophils # 0.1 K/mcL (0.0-0.6); Eosinophils % 0.6 %; Hematocrit 43.8 % (37.5-50.1); Hemoglobin 14.4 g/dL (12.9-16.9); Immature Granulocytes % 0.4 % (0-4); Lymphocytes # 1.4 K/mcL (0.6-4.6); Lymphocytes % 11.1 %; Mean Corpuscular HGB Conc 32.9 g/dL (31.6-35.5); Mean Corpuscular Hemoglobin 32.5 pg (28.0-33.3); Mean Corpuscular Volume 98.9 fL (83.0-100.0); Mean Platelet Volume 10.4 fL (9.4-12.4); Monocytes # 0.7 K/mcL (0.0-1.3); Neutrophils # 10.1 K/mcL (1.6-8.9); Platelet Count 203 K/mcL (140-400); Red Blood Count 4.43 M/mcL (4.19-5.50); Red Cell Distribution Width 12.5 % (11.5-14.5); Segmented Neutrophils % 81.7 %; White Blood Count 12.4 K/mcL (4.3-11.1)
[2021-03-13 07:58] LABS: INR 1.1; Prothrombin Time 12.7 Seconds (9.4-12.1)
[2021-03-13 07:58] LABS: ABG Base Excess 2 mEq/L (-2 to 3); ABG HCO3 27 mEq/L (21-27); ABG Oxygen Saturation 84 % (95-98); ABG PCO2 43 mmHg (35-45); ABG PO2 49 mmHg (85-104); ABG TCO2 28 mEq/L (20-26)
[2021-03-13 08:01] LABS: Activated Partial Thrombo Time 35.1 Seconds (26.0-36.0)
[2021-03-13 08:05] LABS: Troponin I 0.03 ng/mL (< 0.04)
[2021-03-13 08:07] LABS: Alanine Aminotransferase 17 Units/L (7-52); Albumin 3.6 g/dL (3.5-5.7); Albumin/Globulin Ratio 0.9 (1.1-2.2); Alkaline Phosphatase 191 Units/L (34-104); Aspartate Amino Transferase 25 Units/L (13-39); BUN/Creatinine Ratio 17 (6-26); Bilirubin,Direct 0.2 mg/dL (0.0-0.2); Bilirubin,Indirect 0.3 mg/dL (0.0-1.0); Bilirubin,Total 0.5 mg/dL (0.3-1.0); Blood Urea Nitrogen 15 mg/dL (8-23); Calcium 8.8 mg/dL (8.6-10.3); Carbon Dioxide 29 mEq/L (23-29); Chloride 97 mEq/L (98-107); Glucose 161 mg/dL (70-105); Osmolality,Calculated 282 (280-300); Potassium 5.1 mEq/L (3.5-5.1); Sodium 134 mEq/L (136-145); Total Protein 7.6 g/dL (6.4-8.9); eGFR For African Americans > 60 (> 60); eGFR For Non-African Americans > 60 (> 60)
[2021-03-13] MEDS ORDERED: Isovue-370 500 ML BOTTLE IVP ONE (08:10)
[2021-03-13] MEDS ORDERED: MOM Conc 10 ML UD.LIQ PO PRN (10:33)
[2021-03-13] MEDS ORDERED: Acetaminophen 325 MG TABLET PO PRN (10:33)
[2021-03-13] MEDS ORDERED: Mag Hydrox/Al Hydrox/Simeth 30 ML UDC PO PRN (10:33)
[2021-03-13] MEDS ORDERED: Ondansetron 4 MG/2 ML VIAL IVP PRN (10:33)
[2021-03-13] MEDS ORDERED: Naloxone 0.4 MG/ML INJ IVP PRN (10:33)
[2021-03-13] MEDS ORDERED: Torsemide 20 MG TABLET PO PRN (10:36)
[2021-03-13] MEDS ORDERED: D5% in Water 1,000 ML IVC PRN (10:50)
[2021-03-13] MEDS ORDERED: Dextrose Gel 15 GM/37.5 ML TUBE PO PRN ×2 (10:50)
[2021-03-13] MEDS ORDERED: *HR* Dextrose 50 % in Water (Syg) 50 ML SYRINGE IVP PRN (10:50)
[2021-03-13] MEDS: Insulin LISPRO 300 UNITS/3 ML VIAL SUBQ SCH ×3 (13:19→21:11)
[2021-03-13] MEDS: *HR* OxyCODONE/APAP 10/325 TABLET PO PRN ×2 (17:14→23:58)
[2021-03-13 17:34] LABS: Adenovirus Not Detected (Not Detect); Coronavirus 229E Not Detected (Not Detect); Coronavirus HKU1 Not Detected (Not Detect); Coronavirus NL63 Not Detected (Not Detect); Coronavirus OC43 Not Detected (Not Detect)
[2021-03-13 17:35] LABS: Bordetella Pertussis Not Detected (Not Detect); Chlamydophila pneumoniae Not Detected (Not Detect); Human Metapneumovirus Not Detected (Not Detect); Human Rhinovirus/Enterovirus Not Detected (Not Detect); Influenza A Subtype 2009 H1 Not Detected (Not Detect); Influenza B Not Detected (Not Detect); Mycoplasma pneumoniae Not Detected (Not Detect); Parainfluenza Virus 1 Not Detected (Not Detect); Parainfluenza Virus 2 Not Detected (Not Detect); Parainfluenza Virus 3 Not Detected (Not Detect); Parainfluenza Virus 4 Not Detected (Not Detect); Respiratory Syncytial Virus Not Detected (Not Detect); SARS-CoV-2 DETECTED (Not Detect)
[2021-03-13] MEDS: Metoprolol XL (24 HR) Succ 50 MG TAB.ER.24H PO SCH (21:08)
[2021-03-13] MEDS: Sennosides/Docusate Sodium TABLET PO SCH (21:10)
[2021-03-13] MEDS: Melatonin 3 MG TABLET PO PRN (21:10)
[2021-03-13] MEDS: Gabapentin 400 MG CAPSULE PO SCH (21:10)
[2021-03-13 22:35] LABS: C-Reactive Protein 108 mg/L (Less than 10)
[2021-03-13 22:54] LABS: Ferritin 191 ng/mL (20-250)
[2021-03-14] MEDS: *HR* OxyCODONE/APAP 10/325 TABLET PO PRN ×3 (05:59→18:49)
[2021-03-14] MEDS: *HR* Enoxaparin 40 MG/0.4 ML SYRINGE SQ SCH (05:59)
[2021-03-14 07:13] LABS: Hematocrit 43.3 % (37.5-50.1); Hemoglobin 14.4 g/dL (12.9-16.9); Mean Corpuscular HGB Conc 33.3 g/dL (31.6-35.5); Mean Corpuscular Hemoglobin 31.8 pg (28.0-33.3); Mean Corpuscular Volume 95.6 fL (83.0-100.0); Mean Platelet Volume 10.9 fL (9.4-12.4); Platelet Count 235 K/mcL (140-400); Red Blood Count 4.53 M/mcL (4.19-5.50); Red Cell Distribution Width 12.2 % (11.5-14.5); White Blood Count 12.4 K/mcL (4.3-11.1)
[2021-03-14 07:38] LABS: BUN/Creatinine Ratio 23 (6-26); Blood Urea Nitrogen 19 mg/dL (8-23); Carbon Dioxide 28 mEq/L (23-29); Chloride 96 mEq/L (98-107); Glucose 301 mg/dL (70-105); Osmolality,Calculated 290 (280-300); Potassium 3.9 mEq/L (3.5-5.1); Sodium 133 mEq/L (136-145); eGFR For African Americans > 60 (> 60); eGFR For Non-African Americans > 60 (> 60)
[2021-03-14] MEDS: Dexamethasone Sodium Phos/PF 10 MG/ML VIAL IVP SCH (08:36)
[2021-03-14] MEDS: cefTRIAXone 2,000 MG in 0.9 % Sodium Chloride Mini Bag 100 ML IVPB SCH (08:41)
[2021-03-14] MEDS: Azithromycin 500 MG in 0.9 % Sodium Chloride 250 ML IVPB SCH (08:45)
[2021-03-14] MEDS: Insulin LISPRO 300 UNITS/3 ML VIAL SUBQ SCH ×6 (08:45→20:55)
[2021-03-14] MEDS: Finasteride 5 MG TABLET PO SCH (08:49)
[2021-03-14] MEDS: DilTIAZem CD (24hr) 180 MG CAP.ER.24H PO SCH (08:49)
[2021-03-14] MEDS: Gabapentin 400 MG CAPSULE PO SCH ×2 (08:49→20:54)
[2021-03-14] MEDS: Multivit/Ca/Min/Fe/FA 1 TAB TABLET PO SCH (08:50)
[2021-03-14] MEDS: Sennosides/Docusate Sodium TABLET PO SCH ×2 (08:50→21:14)
[2021-03-14] MEDS: lisinopriL 5 MG TABLET PO SCH (08:50)
[2021-03-14] MEDS: Metoprolol XL (24 HR) Succ 50 MG TAB.ER.24H PO SCH ×2 (08:50→20:55)
[2021-03-14] MEDS: Aspirin Enteric Coated 325 MG Tablet PO SCH (08:50)
[2021-03-14] MEDS: *HR* Digoxin 0.125 MG TABLET PO SCH (08:50)
[2021-03-14] MEDS ORDERED: NON-FORMULARY MEDICATION 1 EACH EACH (Insulin Degludec [Tresiba Flextouch U-200] 200 UNIT/ SQ SCH (09:00)
[2021-03-14] MEDS ORDERED: lisinopriL 5 MG TABLET PO SCH (09:00)
[2021-03-14] MEDS ORDERED: Dexamethasone Sodium Phos/PF 10 MG/ML VIAL IVP SCH (09:00)
[2021-03-14] MEDS: Insulin DETEMIR 100 UNIT/ML X5UNITS SUBQ SCH (09:19)
[2021-03-15] MEDS: *HR* OxyCODONE/APAP 10/325 TABLET PO PRN ×4 (00:59→22:44)
[2021-03-15] MEDS: *HR* Enoxaparin 40 MG/0.4 ML SYRINGE SQ SCH (06:24)
[2021-03-15 07:40] LABS: Mean Corpuscular HGB Conc 33.3 g/dL (31.6-35.5); Mean Corpuscular Hemoglobin 32.1 pg (28.0-33.3); Mean Corpuscular Volume 96.3 fL (83.0-100.0); Mean Platelet Volume 10.4 fL (9.4-12.4); Platelet Count 263 K/mcL (140-400); Red Blood Count 4.36 M/mcL (4.19-5.50); Red Cell Distribution Width 12.3 % (11.5-14.5); White Blood Count 20.2 K/mcL (4.3-11.1)
[2021-03-15 08:26] LABS: Alanine Aminotransferase 31 Units/L (7-52); Albumin 3.3 g/dL (3.5-5.7); Albumin/Globulin Ratio 0.9 (1.1-2.2); Alkaline Phosphatase 152 Units/L (34-104); Aspartate Amino Transferase 51 Units/L (13-39); BUN/Creatinine Ratio 26 (6-26); Bilirubin,Total 0.4 mg/dL (0.3-1.0); Blood Urea Nitrogen 21 mg/dL (8-23); Calcium 8.5 mg/dL (8.6-10.3); Carbon Dioxide 27 mEq/L (23-29); Chloride 99 mEq/L (98-107); Globulin 3.6 g/dL (2.4-3.5); Glucose 260 mg/dL (70-105); Osmolality,Calculated 290 (280-300); Potassium 4.3 mEq/L (3.5-5.1); Sodium 134 mEq/L (136-145); Total Protein 6.9 g/dL (6.4-8.9); eGFR For African Americans > 60 (> 60); eGFR For Non-African Americans > 60 (> 60)
[2021-03-15] MEDS: Insulin LISPRO 300 UNITS/3 ML VIAL SUBQ SCH ×4 (09:01→21:36)
[2021-03-15] MEDS: lisinopriL 5 MG TABLET PO SCH (09:04)
[2021-03-15] MEDS: *HR* Digoxin 0.125 MG TABLET PO SCH (09:05)
[2021-03-15] MEDS: DilTIAZem CD (24hr) 180 MG CAP.ER.24H PO SCH (09:05)
[2021-03-15] MEDS: Multivit/Ca/Min/Fe/FA 1 TAB TABLET PO SCH (09:05)
[2021-03-15] MEDS: Gabapentin 400 MG CAPSULE PO SCH ×2 (09:05→21:35)
[2021-03-15] MEDS: Finasteride 5 MG TABLET PO SCH (09:05)
[2021-03-15] MEDS: Metoprolol XL (24 HR) Succ 50 MG TAB.ER.24H PO SCH ×2 (09:05→21:34)
[2021-03-15] MEDS: Aspirin Enteric Coated 325 MG Tablet PO SCH (09:05)
[2021-03-15] MEDS: Dexamethasone Sodium Phos/PF 10 MG/ML VIAL IVP SCH (09:06)
[2021-03-15] MEDS: Sennosides/Docusate Sodium TABLET PO SCH ×2 (09:06→21:35)
[2021-03-15] MEDS: cefTRIAXone 2,000 MG in 0.9 % Sodium Chloride Mini Bag 100 ML IVPB SCH (09:07)
[2021-03-15] MEDS: Insulin DETEMIR 100 UNIT/ML X5UNITS SUBQ SCH (10:18)
[2021-03-15] MEDS: Azithromycin 500 MG in 0.9 % Sodium Chloride 250 ML IVPB SCH (10:18)
[2021-03-15] MEDS: Benzonatate 100 MG CAPSULE PO PRN (21:34)
[2021-03-15] MEDS: Melatonin 3 MG TABLET PO PRN (21:36)
[2021-03-16] MEDS: *HR* Enoxaparin 40 MG/0.4 ML SYRINGE SQ SCH (06:00)
[2021-03-16] MEDS: *HR* OxyCODONE/APAP 10/325 TABLET PO PRN ×2 (06:01→13:02)
[2021-03-16 08:59] LABS: Basophils % 0.1 %; Eosinophils % 0.1 %; Hematocrit 42.7 % (37.5-50.1); Hemoglobin 14.1 g/dL (12.9-16.9); Immature Granulocytes % 0.9 % (0-4); Lymphocytes # 0.9 K/mcL (0.6-4.6); Lymphocytes % 5.1 %; Mean Corpuscular Volume 96.8 fL (83.0-100.0); Mean Platelet Volume 10.2 fL (9.4-12.4); Monocytes % 5.5 %; Neutrophils # 15.4 K/mcL (1.6-8.9); Platelet Count 275 K/mcL (140-400); Red Blood Count 4.41 M/mcL (4.19-5.50); Red Cell Distribution Width 12.3 % (11.5-14.5); Segmented Neutrophils % 88.3 %; White Blood Count 17.4 K/mcL (4.3-11.1)
[2021-03-16] MEDS: Insulin LISPRO 300 UNITS/3 ML VIAL SUBQ SCH ×2 (09:04→13:02)
[2021-03-16] MEDS: Insulin DETEMIR 100 UNIT/ML X5UNITS SUBQ SCH (09:08)
[2021-03-16] MEDS: Gabapentin 400 MG CAPSULE PO SCH (09:10)
[2021-03-16] MEDS: Benzonatate 100 MG CAPSULE PO PRN (09:10)
[2021-03-16] MEDS: Aspirin Enteric Coated 325 MG Tablet PO SCH (09:10)
[2021-03-16] MEDS: DilTIAZem CD (24hr) 180 MG CAP.ER.24H PO SCH (09:11)
[2021-03-16] MEDS: Metoprolol XL (24 HR) Succ 50 MG TAB.ER.24H PO SCH (09:11)
[2021-03-16] MEDS: Sennosides/Docusate Sodium TABLET PO SCH (09:11)
[2021-03-16] MEDS: Finasteride 5 MG TABLET PO SCH (09:11)
[2021-03-16] MEDS: *HR* Digoxin 0.125 MG TABLET PO SCH (09:11)
[2021-03-16] MEDS: Multivit/Ca/Min/Fe/FA 1 TAB TABLET PO SCH (09:11)
[2021-03-16] MEDS: Dexamethasone Sodium Phos/PF 10 MG/ML VIAL IVP SCH (09:12)
[2021-03-16] MEDS: lisinopriL 5 MG TABLET PO SCH (09:12)
[2021-03-16] MEDS: cefTRIAXone 2,000 MG in 0.9 % Sodium Chloride Mini Bag 100 ML IVPB SCH (09:12)
[2021-03-16] MEDS: Azithromycin 500 MG in 0.9 % Sodium Chloride 250 ML IVPB SCH (09:13)
[2021-03-16 09:24] LABS: BUN/Creatinine Ratio 28 (6-26); Blood Urea Nitrogen 22 mg/dL (8-23); Calcium 8.4 mg/dL (8.6-10.3); Carbon Dioxide 27 mEq/L (23-29); Chloride 97 mEq/L (98-107); Glucose 290 mg/dL (70-105); Osmolality,Calculated 288 (280-300); Potassium 4.2 mEq/L (3.5-5.1); Sodium 132 mEq/L (136-145); eGFR For African Americans > 60 (> 60); eGFR For Non-African Americans > 60 (> 60)
[2021-03-16 20:36] VITALS: BP 158/72
[2021-03-16 22:02] VITALS: PULSE 81; RESP 18; TEMP 97.6; O2SAT 95
== END 2021-03-16 15:45 | disposition home health service (06) | DRG 177 ==
LOC: EMEROOPIK 07:12 → INPPIK 07:12
PROVIDERS: ADMIT Family Medicine; ATTEND Family Medicine